=== PATIENT | male | born 1970 | race African-American/Black ===

== ENCOUNTER 2017-01-10 11:51 | Day surgery (SDC) | payer MEDICARE ==
[~2017-01-10] VITALS: Ht 188 cm; Wt 92.3 kg
--- NOTE | ~2017-01-10 | OP ---
PATIENT NAME: DARLENE VILLATORO MEDICAL RECORD: [id number] :74 [facility] DATE: SURGEON: BUNNY HUI DO DATE OF OPERATION: 01/10/2017 PROCEDURE: EGD with biopsies. INDICATIONS FOR PROCEDURE: Vomiting, heartburn, end-stage renal disease. SCOPE: ThetaRay video gastroscope. MEDICATIONS: Propofol 300 mg IV per anesthesia. ESTIMATED BLOOD LOSS: Minimal. COMPLICATIONS: None. FINDINGS: Informed consent was given. The patient was made comfortable with the above medication. After reaching an adequate level of sedation by slow IV push, the patient was placed on his left side. The endoscope was advanced under direct visualization through the mouth to the second portion of the duodenum. The upper, middle and distal thirds of the esophagus appeared normal. At the GE junction, there was some very mild evidence of [place] class A reflux induced esophagitis. The endoscope was advanced into the stomach and retroflexed to view the cardia where a diminutive sliding hiatal hernia was present. The fundus and body of the stomach appeared normal. The endoscope was advanced down to the antrum and prepyloric region which also appeared normal. Random biopsies were taken to rule out H. pylori and to submit for histology. The endoscope was advanced beyond the pylorus into the duodenum where the bulb and second portion of the duodenum appeared normal. The scope was withdrawn from the patient. The patient tolerated the procedure well and there were no complications. IMPRESSION: 1. Mild LA class A reflux induced esophagitis. 2. Diminutive sliding hiatal hernia. PLAN AND RECOMMENDATIONS: 1. Discharge home when recovery parameters are met. 2. Continue current diet. 3. Continue current medications including Pepcid 40 mg daily. 4. Reflux precautions. 5. Follow up in the GI clinic on an as-needed basis. TRANSINT:[id number] Voice Confirmation ID: [id number] DOCUMENT ID: [id number] BUNNY HUI DO CC: [id number] DICTATION DATE: 01/10/17 1502 SOIL CONSERVATIONIST: 01/11/17 [facility] 01/10/17 [facility] [address] [place] [address]
[~2017-01-10 11:51] MED LIST: BACTROBAN CREAM15 GM TOPICAL; BAYER ASPIRIN325 MG PO; BYSTOLIC5 MG PO; CELEXA40 MG PO; COZAAR50 MG PO; DIALYVITE; EFFEXOR75 MG PO; GLIMEPIRIDE1 MG PO; LASIX80 MG PO; METOLAZONE5 MG PO; METOPROLOL TART50 MG PO; NORVASC5 MG PO; PLAVIX75 MG PO; PROZAC20 MG PO; RENVELA800 MG PO; SENSIPAR30 MG PO; ZAROXOLYN5 MG PO
[2017-01-10 12:58] LABS: ANION GAP 16.9 mmol/L (8-16); CALCIUM 10.3 mg/dL (8.5-10.1); CARBON DIOXIDE 28.7 mmol/L (21.0-32.0); CREATININE - SERUM 9.4 mg/dL (0.6-1.3); POTASSIUM - SERUM 4.6 mmol/L (3.5-5.1)
[2017-01-10 13:00] LABS: HEMATOCRIT 36.6 % (42.0-54.0); HEMOGLOBIN 12.4 g/dL (13.5-17.5); MCH 33.2 pg (26.0-34.0); MCHC 33.9 g/dL (31.0-37.0); MCV 97.9 fL (80.0-100.0); MEAN PLATELET VOLUME 11.2 fL (7.4-10.4); RBC 3.74 10x6/uL (4.20-6.10); RDW 16.5 % (11.5-14.5); WBC 4.1 10x3/uL (4.8-10.8)
[2017-01-10] MEDS ORDERED: PEPCID40 MG PO (13:19)
[2017-01-10] MEDS ORDERED: FERRIC CITRATE210 MG PO (13:20)
[2017-01-10 13:28] VITALS: Ht 188 cm; Wt 92.3 kg
--- NOTE | 2017-01-10 17:01 | NUR ---
1545 IV DC WITH CATHER TIP INTACT
== END 2017-01-10 16:00 | disposition home or self-care (01) ==
LOC: D.OPS 11:51
PROVIDERS: Anesthesiology
DX: K21.0 Gastro-esophageal reflux disease with esophagitis (principal); K44.9 Diaphragmatic hernia without obstruction or gangrene; K29.50 Unspecified chronic gastritis without bleeding; N18.6 End stage renal disease

== ENCOUNTER 2017-05-07 10:30 | Outpatient (CLI) | payer MEDICARE ==
[~2017-05-07] VITALS: Ht 188 cm; Wt 96.8 kg
--- NOTE | ~2017-05-07 | HEMODYNAMI ---
PATIENT:DRALENE VILLATORO MEDICAL RECORD: [id number] : 74 LOCATION:[facility] ADMISSION DATE: 05/07/17 Generatedon:05/07/201713:26 Patient name: DARLENE VILLATORO Patient #: [id number] SSN: : 1970 Date of study: 05/07/2017 Page: Of Hemodynamic Procedure Report Patient Data Patient Demographics Procedure consent was obtained First Name: DARLENE Gender: Male Last Name: SHAUNA : 1970 Middle Initial: A Age: 46 year(s) Patient #: [id number] Race: Black Additional ID: [id number] Contact details [address]: [address] [place] [address] State: [place] City: [place] Zip code: [address] Past Medical History History of disease Date Diagnosis Comments CAD Allergies Allergen Reaction Date Comments Reported Other allergy 05/07/2017 BUMEX, LISINOPRIL Admission Admission Data Admission Date: 05/07/2017 Admission Time: 13:00 Admit Source: Other Lab Results Lab Result Date: 05/07/2017 Lab Result Time: 11:10 Biochemistry Name Units Result Min Max BUN mg/dl 45 --(----)-* 7 18 Creatinine mg/dl 8.8 --(----)-* 0.6 1.3 CBC Name Units Result Min Max Hematocrit % 33.5 *-(----)-- 42 54 Hemoglobin g/dl 11.2 *-(----)-- 13.5 17.5 Procedure Procedure Types Cath Procedure Diagnostic Procedure LHC LHC w/Coronaries Miscellaneous Procedures Moderate Sedation up to 15 minutes Procedure Description Procedure Date Procedure Date: 05/07/2017 Procedure Start Time: 13:14 Procedure End Time: 13:24 Procedure Staff Name Function Chris Escalona MD Performing Physician Brent Simmons RT Scrub Laverne Lopez RT Scrub Jose Fox RT Monitor Wale Thornton RN Nurse Radha Zambrano RT Rn Review Procedure Data Cath Procedure Fluoroscopy Diagnostic fluoroscopy Total fluoroscopy Time: 1.6 time: 1.6 min min Diagnostic fluoroscopy Total fluoroscopy dose: 511 dose: 511 mGy mGy Contrast Material Contrast Material Type Amount (ml) Isovue 300 60 Entry Location Entry Primary Successful Side Size Upsize Upsize Entry Closure Succes sful Closure Location (Fr) 1 (Fr) 2 (Fr) Remarks Device Remarks Femoral Right 5 Fr Exoseal artery Estimated blood loss: 10 ml Diagnostic catheters Device Type Used For End Catheter Placement Cordis 5Fr JL 4.0 Procedure Catheter (MP) Cordis 5Fr 3DRC Catheter Procedure (MP) Cordis 5Fr Pigtail Procedure Catheter (MP) Procedure Complications No complications Procedure Medications Medication Administration Route Dosage 0.9% NaCl I.V. 100 ml/hr Oxygen NC 2 l/min Heparin Flush Bag added to field 2 bags (1000units/500ml NS) Lidocaine 2% added to field 20 Versed I.V. 1 mg Fentanyl I.V. 50 mcg Versed I.V. 1 mg Fentanyl I.V. 50 mcg Lopressor I.V. 5 mg Hemodynamics Rest Heart Rate: 67 (bpm) Pressure Samples Time Site Value (mmHg) Purpose Heart Use Rate(bpm) 13:19 LV 135/9,13 Snapshot 67 13:20 AO 160/83(117) Pullback 77 13:20 LV 160/15,17 Pullback 77 Gradients Valve Time Site 1 Site 2 Mean SEP/DFP Peak To Heart Use (mmHg) (sec/min) Peak Rate (mmHg) (bpm) Aortic 13:20 LV AO 7 17 0 77 160/15,17 160/83(117) Calculations Valve P-P Mean Valve Index Valve Source Name Gradient Area Flow (cm2) Aortic 0 7 0 7 Snapshots Pre Cath Intra NCS Post Cath Vital Signs Time Heart Resp SPO2 etCO2 ZY1qtim NIBP (mmHg) Rhythm Pain Sedatio n Rate (ipm) (%) (mmHg) (mmHg) Status Level (bpm) 12:51:12 80 16 98 0 0 186/108(157) NSR 0 (11) 10(A) , No pain 12:55:58 77 16 99 0 0 169/89(135) NSR 0 (11) 10(A) , No pain 13:00:43 79 13 100 0 0 154/96(125) NSR 0 (11) 10(A) , No pain 13:05:26 79 13 100 0 0 164/92(127) NSR 0 (11) 10(A) , No pain 13:10:10 79 14 100 0 0 158/91(126) NSR 0 (11) 10(A) , No pain 13:14:55 79 16 100 0 0 169/92(126) NSR 0 (11) 10(A) , No pain 13:19:42 68 21 100 0 0 150/78(128) NSR 0 (11) 10(A) , No pain 13:24:23 75 6 100 0 0 162/103(130) NSR 0 (11) 10(A) , No pain Medications Time Medication Route Dose Verified Delivered Reason Notes Effe ctiveness by by 12:45:21 0.9% NaCl I.V. 100 Wale Wale Per ml/hr Hillary Thornton physician RN RN 12:45:47 Oxygen NC 2 Wale Wale Per l/min Hillary Thornton physician RN RN 12:46:57 Heparin Flush added 2 Wale Wale used for Bag to bags Lorigan Lorigan procedure (1000units/500ml field RN RN NS) 12:47:14 Lidocaine 2% added 20ml Wale Wale for local to vial Lorigan Lorigan anesthetic field RN RN 13:04:32 Versed I.V. 1 mg Wale Wale for Lorigan Lorigan sedation RN RN 13:04:44 Fentanyl I.V. 50 Wale Wale for mcg Lorigan Lorigan sedation RN RN 13:14:17 Versed I.V. 1 mg Wale Wale for Lorigan Lorigan sedation RN RN 13:14:26 Fentanyl I.V. 50 Wale Wale for mcg Lorigan Lorigan sedation RN RN 13:19:21 Lopressor I.V. 5 mg Wale Wale Per Lorigan Ana Liliaigan physician RN pattern cutter Log Time Note 12:15:49 Radha LOPEZ(R) sent for patient. Start room use. 12:38:03 Informed consent obtained and on chart 12:39:46 Admit Source: Other 12:39:47 Diagnostic Cath status Elective 12:39:51 Time tracking: Regular hours 12:39:54 Plan of Care:Hemodynamics will remain stable., Cardiac rhythm will remain stable., Comfort level will be maintained., Respiratory function will remain adequate., Patient/ family verbilizes understanding of procedure., Procedure tolerated without complication., Recovers from procedure without complications.. 12:42:40 Patient received from Pre/Post Procedure Room to CCL 1 Alert and oriented. Tansferred to table in Supine position. 12:42:41 Warm blankets applied, and jose juan hugger turned on for patient comfort. 12:42:42 Correct patient and procedure confirmed by team. 12:42:43 ECG and BP/O2 sat monitors applied to patient. 12:42:51 H&P Date Dictated: 04/30/2017 Within 30 days and on chart., H&P Addendum completed by physician on day of procedure. (MUST COMPLETE FOR ALL OUTPATIENTS). 12:42:52 Pre-procedure instructions explained to patient. 12:42:53 Pre-op teaching completed and patient verbalized understanding. 12:42:55 Family in patients room. 12:42:57 Patient NPO since Midnight. 12:43:11 Patient allergic to Other allergyBUMEX, LISINOPRIL 12:43:54 Lab Result : Creatinine 8.8 mg/dl 12:43:54 Lab Result : BUN 45 mg/dl 12:43:54 Lab Result : Hematocrit 33.5 % 12:43:54 Lab Result : Hemoglobin 11.2 g/dl 12:45:21 0.9% NaCl 100 ml/hr I.V. was administered by Wale Thornton RN; Per physician; 12:45:47 Oxygen 2 l/min NC was administered by Wale Thornton RN; Per physician; 12:46:57 Heparin Flush Bag (1000units/500ml NS) 2 bags added to field was administered by Wale Thornton RN; used for procedure; 12:47:14 Lidocaine 2% 20ml vial added to field was administered by Wale Thornton RN; for local anesthetic; 12:47:49 Is the patient allergic to Iodine/contrast media? No. 12:47:52 Was the patient premedicated? No 12:47:54 Is patient on blood thinner?Yes 12:47:56 ACC The patient was administered the following blood thiners within the last 24 hours: ACCPlavix 12:47:59 Patient diabetic? Yes. 12:48:00 If diabetic: On Metformin? No 12:48:06 Snore? Yes 12:48:07 Sleep apnea? Yes 12:48:13 Dentures? No ? 12:48:23 Patient pain scale 0/10 ?. 12:48:30 IV patent on arrival in right forearm with 0.9% NaCl at [facility]. 12:48:41 Lab results completed and on chart. 12:48:50 Right groin area was prepped with chlora-prep and draped in sterile fashion 12:48:52 Alarms reviewed by R. N. 12:48:52 Sharps counted by scrub and verified by R.N. 12:48:53 Physician paged 12:50:13 Vital chart was started 12:58:46 Zero performed for pressure channel P1 13:03:40 Physician arrived 13:03:41 --------ALL STOP TIME OUT------ 13:03:45 Final Timeout: patient, procedure, and site verified with staff and physician. All members of the team are in agreement. 13:03:48 Right groin site verified by team. 13:03:55 Sedation plan: IV Moderate Sedation Versed, Fentanyl 13:04:32 Versed 1 mg I.V. was administered by Wale Thornton RN; for sedation; 13:04:44 Fentanyl 50 mcg I.V. was administered by Wale Thornton RN; for sedation; 13:07:51 Use device set Femoral Dx 13:07:53 Acist Syringe opened to sterile field. 13:07:53 Bag Decanter opened to sterile field. 13:07:54 Medline Cath Pack opened to sterile field. 13:07:54 Terumo 5Fr Bajadero Sheath opened to sterile field. 13:07:55 St Andreas 260cm J .035 wire opened to sterile field. 13:07:57 Acist Hand Control opened to sterile field. 13:07:57 Acist Manifold opened to sterile field. 13:07:58 Diagnostic Infinity 5Fr Multipack catheter opened to sterile field. 13:07:58 Tegaderm 4 x 4 opened to sterile field. 13:14:17 Versed 1 mg I.V. was administered by Wale Thornton RN; for sedation; 13:14:21 Procedure started. 13:14:22 Full Disclosure recording started 13:14:26 Fentanyl 50 mcg I.V. was administered by Wale Thornton RN; for sedation; 13:14:35 Local anesthetic to right femoral artery with Lidocaine 2% by Chris Escalona MD.INITIAL ACCESS ONLY 13:14:58 A 5 Fr sheath was inserted into the Right Femoral artery 13:16:07 Catheter removed. 13:16:27 A Cordis 5Fr JL 4.0 Catheter (MP) was advanced over the wire and used for Procedure. 13:16:50 LCA angiography performed. 13:17:05 Catheter removed. 13:17:14 A Cordis 5Fr 3DRC Catheter (MP) was advanced over the wire and used for Procedure. 13:19:16 RCA angiography performed. 13:19:18 Catheter removed. 13:19:21 Lopressor 5 mg I.V. was administered by Wale Thornton RN; Per physician; 13:19:26 A Cordis 5Fr Pigtail Catheter (MP) was advanced over the wire and used for Procedure. 13:20:02 EF : 35 % 13:20:04 Catheter removed. 13:20:54 Cordis 5Fr Exoseal opened to sterile field. 13:21:03 Sheath removed intact; hemostasis achieved with Exoseal to the Right Femoral artery. 13:21:34 Procedure ended.(Physican Out) 13:21:55 Fluoroscopy time 01.60 minutes. 13:22:00 Flurop Dose total: 511 13:22:00 Fluoroscopy dose: 511 mGy 13:22:05 Contrast amount:Isovue 300 60ml. 13:22:07 Sharps counted by scrub and verified by R.N. 13:22:09 Insertion/operative site no bleeding no hematoma. 13:22:12 Post Procedure Pulses reassessed and unchanged 13:22:17 Post procedure rhythm: unchanged. 13:22:21 Estimated blood loss: 10 ml 13:22:25 Post procedure instruction explained to patient.Patient verbalizes understanding. 13:22:36 Patient needs reinforcement of post procedure teaching. 13:22:48 Procedure and supply charges have been captured, reviewed, submitted and are correct. 13:22:57 Procedure type changed to Cath procedure, Diagnostic procedure, LHC, LHC w/Coronaries, Miscellaneous Procedures, Moderate Sedation up to 15 minutes 13:24:23 Procedure Complication : No complications 13:24:27 Vital chart was stopped 13:24:28 See physician's report for complete and final results. 13:24:30 Report given to Med II. 13:24:37 Patient transfered to Pre/Post Procedure Room with Stretcher. 13:24:39 Procedure ended. 13:24:39 Full Disclosure recording stopped 13:24:42 End room use (Document Last) Device Usage Item Name Manufacture Quantity Catalog Hospital Part Current Minimal Lo t# / Number Charge Number Stock Stock Serial# Code Acist Acist 1 [id number] 163083 957864 042825 20 Syringe [employer] Bag Microtek 1 2002S 053489 48941 058249 5 Decanter [employer] Medline Cardinal 1 [id number] 475318 75512 015105 5 Cath Pack Health Terumo 5Fr Terumo 1 [id number] 475578 854946 576526 [address] Andreas 1 148519 710751 433205 101412 30 260cm J .035 wire Acist Hand Acist 1 43096 512528 120471 882563 5 Control [employer] Inc Acist Acist 1 66027 754383 377425 105817 5 Manifold [employer] Inc Diagnostic Cardinal 1 [id number] 457748 05171 804587 30 Infinity Health 5Fr Multipack catheter Tegaderm 4 3M 1 1626W 323335 919889 932951 5 x 4 Cordis 5Fr Cardinal 1 096672 5 JL 4.0 Health Catheter (MP) Cordis 5Fr Cardinal 1 733909 5 3DRC Health Catheter (MP) Cordis 5Fr Cardinal 1 893249 5 Pigtail Health Catheter (MP) Cordis 5Fr Cardinal 1 EX500 873683 781374 397880 10 [facility] Health Signature Audit Unity Stage Time Signature Unsigned Intra-Procedure 05/07/2017 Radha Zambrano 1:26:22 PM RT(R) Signatures Monitor : Jose Fox RT Signature : Date : Time : [facility] [address] [place] [address]
--- NOTE | ~2017-05-07 | OP ---
PATIENT NAME: DARLENE VILLATORO MEDICAL RECORD: [id number] :74 LOCATION:[facility] ADMISSION DATE: SURGEON: JAYDEN CUELLAR MD DATE OF OPERATION: 05/07/2017 PROCEDURE: Left heart catheterization, selective coronary angiography, right femoral artery approach. CATHETERS: A 5-Kazakh sheath, 5/4 left and right Chirag, 5/4 pig. The procedure was well tolerated and the patient returned to gore. Sheath removed. ExoSeal device placed. FINDINGS: Left ventriculography, 30-degree BRIDGES view shows global hypokinesis. Overall, LV function reduced, estimated EF 40%. CORONARY ANATOMY: LEFT MAIN: Left main is free of disease. LAD: LAD in the area of previous stenting is widely patent with no evidence of progression of [place] disease. CIRCUMFLEX: Circumflex is free of disease. RIGHT CORONARY ARTERY: Somewhat codominant system, free of disease. IMPRESSION: Mildly decreased LV function. I suspect hypertensive cardiomyopathy, patent stent. TRANSINT:[id number] Voice Confirmation ID: [id number] DOCUMENT ID: [id number] JAYDEN CUELLAR MD CC: [id number] DICTATION DATE: 05/07/17 1329 FISH BAIT PROCESSING SUPERVISOR: 05/07/17 1432 PRE [facility] [address] [place] [id number]
[~2017-05-07 10:30] MED LIST changes: +FERRIC CITRATE210 MG PO; +PEPCID40 MG PO
[2017-05-07] MEDS ORDERED: GABAPENTIN100 MG PO (10:58)
[2017-05-07 11:03] VITALS: BP 174/67; Ht 188 cm; Wt 96.8 kg
[2017-05-07 11:19] LABS: BASOPHILS 0 % (0-2); EOSINOPHILS 2.2 % (0-7); HEMATOCRIT 33.5 % (42.0-54.0); HEMOGLOBIN 11.2 g/dL (13.5-17.5); IMMATURE GRANULOCYTES 0.2 % (0-5); LYMPHOCYTES 25.1 % (15-50); MCH 32.8 pg (26.0-34.0); MCHC 33.4 g/dL (31.0-37.0); MCV 98.2 fL (80.0-100.0); MEAN PLATELET VOLUME 9.2 fL (7.4-10.4); MONOCYTES 5.6 % (2-11); NEUTROPHILS 66.9 % (40-80); RBC 3.41 10x6/uL (4.20-6.10); RDW 15.5 % (11.5-14.5); WBC 4.5 10x3/uL (4.8-10.8)
[2017-05-07 11:27] LABS: PLATELET COUNT 223 10x3/uL (130-400)
[2017-05-07 11:36] LABS: CREATININE - SERUM 8.8 mg/dL (0.6-1.3)
[2017-05-07 11:37] LABS: ANION GAP 15.9 mmol/L (8-16); CALCIUM 9.1 mg/dL (8.5-10.1); CARBON DIOXIDE 30.6 mmol/L (21.0-32.0); POTASSIUM - SERUM 4.5 mmol/L (3.5-5.1)
--- NOTE | 2017-05-07 13:39 | NUR ---
RECIEVED TO ROOM VIA STRETCHER FROM FOLDER MACHINE ADJUSTER WITH REPORTS OF A CLEAN CATH NO INTERVENTION AT THIS TIME. 5 FR EXOSEAL R/GROIN CDI NO BLEEDING NO HEMATOMA NOTED. INSTRUCTED PATIENT TO KEEP HEAD FLAT ON PILLOW WITH RLE STRAIGHT
--- NOTE | 2017-05-07 13:42 | NUR ---
R/GROIN CDI NO BLEEDING NO HEMATOMA NOTED. IV FLUIDS CLAMPED ORDERED. VSS WITH CHEST PAIN DENIED
--- NOTE | 2017-05-07 13:55 | NUR ---
5 FR EXOSEAL R/GROIN CDI NO BLEEDING NO HEMATOMA NOTED. VSS WITH CHEST PAIN DENIED FAMILY AT SIDE. INSTRUCTED PATIENT TO KEEP HEAD FLAT ON PILLOW WITH RLE STRAIGHT
--- NOTE | 2017-05-07 14:25 | NUR ---
SANDWICH AND SODA TO BEDSIDE WITH VSS. 5 FR EXOSEAL R/GROIN CDI NO BLEEDING NO HEMATOMA NOTED.
--- NOTE | 2017-05-07 14:56 | NUR ---
SITTING WITH HOB UP 30 DEGREES CHEST PAIN DENIED. 5 FR EXOSEAL R/GROIN CDI NO BLEEDING NO HEMATOMA NOTED.
--- NOTE | 2017-05-07 15:13 | NUR ---
PIV REMOVED WITH DRESSING APPLIED. CHEST PAIN IS DENIED. 5 FR EXOSEAL R/GROIN CDI NO BLEEDING NO HEMATOMA NOTED. PATIENT UP TO GET DRESSED FOR DISCHARGE HOME
--- NOTE | 2017-05-07 15:26 | NUR ---
VERBAL AND WRITTEN DISCHARGE GONE OVER WITH PATIENT. VERBALIZED UNDERSTANDING. 5 FR EXOSEAL R/GROIN CDI NO BLEEDING NO HEMATOMA NOTED. LEFT VIA WC TO PARKING FOR FAMILY TO TRANSPORT HOME
== END 2017-05-07 17:00 ==
LOC: D.CATH 10:30
PROVIDERS: Internal Medicine Interventional Cardiology
DX: I25.10 Atherosclerotic heart disease of native coronary artery without angina pectoris (principal); I42.9 Cardiomyopathy, unspecified; I10 Essential (primary) hypertension; I34.0 Nonrheumatic mitral (valve) insufficiency; Z01.812 Encounter for preprocedural laboratory examination

== ENCOUNTER 2017-09-03 12:14 | Emergency (ER) | payer MEDICARE ==
[2017-05-07 11:03] VITALS: BMI 27.4
[~2017-09-03 12:14] MED LIST changes: +GABAPENTIN100 MG PO
== END 2017-09-03 13:05 | disposition home or self-care (01) ==
LOC: D.ER 12:14
DX: L03.211 Cellulitis of face (principal); E11.9 Type 2 diabetes mellitus without complications; I12.0 Hypertensive chronic kidney disease with stage 5 chronic kidney disease or end stage renal disease; N18.6 End stage renal disease

== ENCOUNTER 2018-08-05 18:17 | Observation (INO) | payer MEDICARE ==
[~2018-08-05] VITALS: Ht 188 cm; Wt 96.8 kg
--- NOTE | ~2018-08-05 | HEMODYNAMI ---
PATIENT:DARLENE VILLATORO MEDICAL RECORD: [id number] : 74 LOCATION:[facility] D.2131 ADMISSION DATE: 08/05/18 Generatedon:08/06/20189:24 Patient name: DARLENE VILLATORO Patient #: [id number] SSN: : 1970 Date of study: 08/06/2018 Page: Of Hemodynamic Procedure Report Patient Data Patient Demographics Procedure consent was obtained First Name: DARLENE Gender: Male Last Name: SHAUNA : 1970 [facility] Initial: A Age: 48 year(s) Patient #: [id number] Race: Black Additional ID: [id number] Contact details [address]: [address] [place] [address] State: [place] City: [place] Zip code: [address] Past Medical History History of disease Date Diagnosis Comments CAD Allergies Allergen Reaction Date Comments Reported Other allergy 05/07/2017 BUMEX, LISINOPRIL Admission Admission Data Admission Date: 08/05/2018 Admission Time: 21:13 Room #: D.2131 Weight (lbs.): 213.85 Weight (kg.): 97 Lab Results Lab Result Date: 08/06/2018 Lab Result Time: 0:00 Biochemistry Name Units Result Min Max BUN mg/dl 38 --(----)-* 7 18 Creatinine mg/dl 10 --(----)-* 0.6 1.3 CBC Name Units Result Min Max Hematocrit % 27.3 *-(----)-- 42 54 Hemoglobin g/dl 8.6 *-(----)-- 13.5 17.5 Platelets 10^3/l 241 --(-*--)-- 130 400 Procedure Procedure Types Cath Procedure Diagnostic Procedure [facility] w/Coronaries FFR/IVUS Intra-Coronary IVUS Initial Sedation Charges Moderate Sedation up to 15 minutes PCI Procedure Coronary Stent Coronary Stent Initial Procedure Description Procedure Date Procedure Date: 08/06/2018 Procedure Start Time: 9:04 Procedure End Time: 9:19 Procedure Staff Name Function Dean Cortez MD Performing Physician Brent Simmons RT Encapsulator Demetra Villegas RT Monitor Fauzia River RN Nurse Radha Zambrano RT Scrub Procedure Data Cath Procedure Fluoroscopy Diagnostic fluoroscopy Total fluoroscopy Time: 3.3 time: 3.3 min min Diagnostic fluoroscopy Total fluoroscopy dose: 935 dose: 935 mGy mGy Contrast Material Contrast Material Type Amount (ml) Isovue 300 98 Entry Location Entry Primary Successful Side Size Upsize Upsize Entry Closure Succes sful Closure Location (Fr) 1 (Fr) 2 (Fr) Remarks Device Remarks Femoral Right 5 Fr 6 Fr Exoseal artery Short Estimated blood loss: 5 ml Diagnostic catheters Device Type Used For End Catheter Placement MULTIPACK Pigtail 5 Fr LV Angiography catheter MULTIPACK JL 4.0 5Fr Left Coronary catheter Angiography MULTIPACK 3DRC 5Fr Right Coronary catheter Angiography Procedure Complications No complications Procedure Medications Medication Administration Route Dosage Oxygen etCO2 Nasal cannula 2 l/min Lidocaine 2% added to field 20 Heparin Flush Bag added to field 2 bags (1000units/500ml NS) 0.9% NaCl I.V. 20 ml/hr Versed I.V. 1 mg Fentanyl I.V. 50 mcg Versed I.V. 1 mg Fentanyl I.V. 50 mcg Fentanyl I.V. 50 mcg Heparin Bolus I.V. 4000 units Plavix P.O. 75 mg Hemodynamics Rest Heart Rate: 76 (bpm) Pressure Samples Time Site Value (mmHg) Purpose Heart Use Rate(bpm) 9:05 LV 140/8,77 Snapshot 86 Snapshots Pre Cath Intra NCS Post Cath Vital Signs Time Heart Resp SPO2 etCO2 NIBP (mmHg) Rhythm Pain Sedation Rate (ipm) (%) (mmHg) Status Level (bpm) 8:48:17 75 12 98 29.9 189/103(160) NSR 0 (11) 10(A) , No pain 8:56:57 74 12 94 30.7 164/94(130) NSR 0 (11) 10(A) , No pain 9:01:18 74 10 95 20.2 159/85(126) NSR 0 (11) 10(A) , No pain 9:05:32 75 15 95 31.4 158/97(132) NSR 0 (11) 10(A) , No pain 9:09:48 75 4 95 32.9 160/93(129) NSR 0 (11) 9(A) , No pain 9:14:04 74 14 96 32.1 165/94(136) NSR 0 (11) 9(A) , No pain 9:18:20 75 12 98 32.1 163/95(132) NSR 0 (11) 10(A) , No pain Medications Time Medication Route Dose Verified Delivered Reason Notes Effectiveness by by 8:49:53 Oxygen etCO2 2 Dean Caeg used for Nasal l/min Diego River RN procedure cannula 8:50:03 Lidocaine 2% added 20ml Dean Dean for local to vial Diego Cortez MD anesthetic field 8:50:08 Heparin Flush added 2 Dean Dean used for Bag to bags Diego Cortez MD procedure (1000units/500ml field NS) 8:50:17 0.9% NaCl I.V. 20 Dean Buffie Per physician ml/hr Diego River RN 8:59:11 Versed I.V. 1 mg Dean Guerinie for sedation Diego River RN 8:59:17 Fentanyl I.V. 50 Dean Buffie for sedation mcg Diego River RN 9:04:40 Versed I.V. 1 mg Dean Buffie for sedation Diego River RN 9:04:43 Fentanyl I.V. 50 Dean Buffie for sedation mcg Diego River RN 9:11:01 Fentanyl I.V. 50 Dean Buffie for sedation mcg Diego River RN 9:14:07 Heparin Bolus I.V. 4000 Dean Guerinie for verifi ed units Diego River RN anticoagulation with dr cortez 9:21:30 Plavix P.O. 75 mg Dean Buffie for Diego River RN antiplatelet therapy Procedure Log Time Note 8:10:48 Patient Weight : 213.85 lbs 8:10:51 Brent LOPEZ(R) sent for patient. Start room use. 8:11:30 Lab Result : Hemoglobin 8.6 g/dl 8:11:30 Lab Result : Creatinine 10 mg/dl 8:11:30 Lab Result : BUN 38 mg/dl 8:11:30 Lab Result : Hematocrit 27.3 % 8:11:30 Lab Result : Platelets 241 10^3/l 8:16:52 Time tracking: Regular hours (M-F 7:00 - 5:00) 8:16:56 Plan of Care:Hemodynamics will remain stable., Cardiac rhythm will remain stable., Comfort level will be maintained., Respiratory function will remain adequate., Patient/ family verbilizes understanding of procedure., Procedure tolerated without complication., Recovers from procedure without complications.. 8:36:25 Patient received from Med II to CCL 2 Alert and oriented. Tansferred to table in Supine position. 8:36:26 Warm blankets applied, and jose juan hugger turned on for patient comfort. 8:36:26 Correct patient and procedure confirmed by team. 8:36:28 Signed procedure consent form obtained from patient. 8:36:29 ECG and BP/O2 sat monitors applied to patient. 8:38:39 H&P Date Dictated: 08/05/2018 Within 30 days and on chart., H&P Addendum completed by physician on day of procedure. (MUST COMPLETE FOR ALL OUTPATIENTS). 8:38:40 Pre-procedure instructions explained to patient. 8:38:41 Pre-op teaching completed and patient verbalized understanding. 8:38:45 Family in patients room. 8:38:47 Patient NPO since Midnight. 8:38:48 Is the patient allergic to Iodine/contrast media? No. 8:38:50 Is patient on blood thinner?Yes 8:38:52 ACC The patient was administered the following blood thiners within the last 24 hours: ACCPlavix 8:38:55 Patient diabetic? Yes. 8:38:56 If diabetic: On Metformin? No 8:38:59 Previous problem with sedation/anesthesia? No ? 8:38:59 Snore? Yes 8:39:00 Sleep apnea? Yes 8:39:01 Deviated septum? No 8:39:02 Opens mouth fully? Yes 8:39:03 Sticks out tongue? Yes 8:39:05 Airway obstruction? No ? 8:39:08 Dentures? No ? 8:39:12 Pre procedure: right dorsailis pedis pulse 1+ Palpable, but thready & weak; easily obliterated 8:39:55 PT HAS A RESERVE LEFT ARM. 8:40:03 Patient pain scale 0/10 ?. 8:40:08 IV patent on arrival in right forearm with 0.9% NaCl at KVO. 8:40:21 Lab results completed and on chart. 8:40:24 Right groin area was prepped with chlora-prep and draped in sterile fashion 8:40:25 Alarms reviewed by R. N. 8:40:26 Sharps counted by scrub and verified by R.N. 8:40:31 Use device set Femoral Dx 8:40:33 Tegaderm 4 x 4 (1626W) opened to sterile field. 8:40:35 ACIST Hand Control (42250) opened to sterile field. 8:40:36 ACIST Manifold (71758) opened to sterile field. 8:40:37 ACIST Syringe (25091) opened to sterile field. 8:40:37 Bag Decanter (2002S) opened to sterile field. 8:40:38 Medline Cath Pack ([id number]) opened to sterile field. 8:40:38 DIAGNOSTIC WIRE .035 260cm J wire (819398) opened to sterile field. 8:40:40 DIAGNOSTIC Multipack 5Fr catheter set (WA8883) opened to sterile field. 8:40:41 SHEATH 5FR [place] (GED047) opened to sterile field. 8:47:28 Zero performed for pressure channel P1 8:49:53 Oxygen 2 l/min etCO2 Nasal cannula was administered by Fauzia River RN; used for procedure; 8:50:03 Lidocaine 2% 20ml vial added to field was administered by Dean Cortez MD; for local anesthetic; 8:50:08 Heparin Flush Bag (1000units/500ml NS) 2 bags added to field was administered by Dean Cortez MD; used for procedure; 8:50:17 0.9% NaCl 20 ml/hr I.V. was administered by Fauzia River RN; Per physician; 8:53:02 Baseline sample Acquired. 8:55:44 Vital chart was started 8:55:54 Rhythm: sinus rhythm 8:55:56 Full Disclosure recording started 8:58:19 Physician arrived 8:58:19 --------ALL STOP TIME OUT------ 8:58:20 Final Timeout: patient, procedure, and site verified with staff and physician. All members of the team are in agreement. 8:58:24 Right groin site verified by team. 8:58:27 Physical assessment completed. ASA score P 2 - A patient with mild systemic disease as per Dean Cortez MD. 8:58:30 Sedation plan: IV Moderate Sedation Medication:Versed, Fentanyl 8:59:11 Versed 1 mg I.V. was administered by Fauzia River RN; for sedation; 8:59:17 Fentanyl 50 mcg I.V. was administered by Fauzia River RN; for sedation; 9:04:01 Procedure started. 9:04:08 Local anesthetic to right femoral artery with Lidocaine 2% by Dean Cortez MD.INITIAL ACCESS ONLY 9:04:23 A 5 Fr sheath was inserted into the Right Femoral artery 9:04:40 Versed 1 mg I.V. was administered by Fauzia River RN; for sedation; 9:04:41 A MULTIPACK Pigtail 5 Fr catheter was advanced over the wire and used for LV Angiography. 9:04:43 Fentanyl 50 mcg I.V. was administered by Fauzia River RN; for sedation; 9:05:55 LV hemodynamics recorded. 9:05:56 LV gram done using BRIDGES 9:05:59 Injector settings: Ml/sec: 5, Volume: 15, 9:06:05 EF : 50 % 9:06:08 Catheter removed. 9:06:18 A MULTIPACK JL 4.0 5Fr catheter was advanced over the wire and used for Left Coronary Angiography. 9:06:55 LCA angiography performed. 9:06:58 Injector settings: Ml/sec: 3, Volume: 6, 9:08:33 Catheter removed. 9:08:38 A MULTIPACK 3DRC 5Fr catheter was advanced over the wire and used for Right Coronary Angiography. 9:08:47 RCA angiography performed. 9:08:50 Injector settings: Ml/sec: 3, Volume: 6, 9:09:00 Catheter removed. 9:09:01 Proceeding to intervention. 9:09:27 SHEATH 6FR [place] (HEG408) opened to sterile field. 9:09:27 INFLATOR Merit BasixCompak (FX6720) opened to sterile field. 9:09:28 CHOICE PT Extra Support 182cm wire ([id number]) opened to sterile field. 9:09:28 GUIDE 6FR XBLAD 3.5 catheter ([id number]) opened to sterile field. 9:09:29 Mobile [place] IVUS Catheter (62261X) opened to sterile field. 9:09:42 Sheath upsized to a 6 Fr Short. 9:09:59 6 Fr XBLAD 3.5 guide catheter was inserted over the wire 9:10:22 CHOICE PT wire advanced. 9:10:24 Wire advanced across lesion. 9:10:50 IVUS catheter advanced over wire. 9:11:01 Fentanyl 50 mcg I.V. was administered by Fauzia River RN; for sedation; 9:14:07 Heparin Bolus 4000 units I.V. was administered by Fauzia River RN; for anticoagulation; verified with dr cortez 9:16:05 IVUS pass to LAD lesion performed. 9:16:06 IVUS catheter removed over wire. 9:16:43 Place stent Inflation Number: 1 A INTEGRITY RX 3.0 x 12 stent ([id number]) was prepped and advanced across the Prox LAD. The stent was deployed at 17 JASMINA for 0:10 (min:sec). 9:16:57 Inflation number: 2 The stent balloon was then re-inflated across the Prox LAD to 17 JASMINA for 0:10 (min:sec). 9:17:58 Stent catheter was removed intact over wire. 9:17:58 Wire removed. 9:17:59 Guide catheter removed. 9:18:05 EXOSEAL 6Fr (EX600) opened to sterile field. 9:18:16 Sheath removed intact; hemostasis achieved with Exoseal to the Right Femoral artery. 9:18:18 Procedure ended.(Physican Out) 9:18:22 Fluoroscopy time 03.30 minutes. 9:18:26 Flurop Dose total: 935 9:18:26 Fluoroscopy dose: 935 mGy 9:18:30 Contrast amount:Isovue 300 98ml. 9:18:31 Sharps counted by scrub and verified by R.N. 9:18:35 Post-op/insertion site Right Femoral artery dressed using a 4 x 4 and Tegaderm. 9:18:38 Post right femoral artery:stable 9:18:39 Post Procedure Pulses reassessed and unchanged 9:18:41 Post procedure rhythm: unchanged. 9:18:44 Estimated blood loss: 5 ml 9:18:45 Post procedure instruction explained to patient.Patient verbalizes understanding. 9:18:45 Patient needs reinforcement of post procedure teaching. 9:19:01 Procedure type changed to Cath procedure, Diagnostic procedure, C, [facility] w/Coronaries, FFR/IVUS, Intra-Coronary IVUS Initial, Sedation Charges, Moderate Sedation up to 15 minutes, PCI procedure, Coronary Stent, Coronary Stent Initial 9:19:02 Procedure and supply charges have been captured, reviewed, submitted and are correct. 9:19:08 Procedure Complication : No complications 9:19:11 Vital chart was stopped 9:19:12 See physician's report for complete and final results. 9:19:20 Report given to [facility]. 9:19:23 Patient transfered to [facility] with Stretcher. 9:19:31 Procedure ended. 9:19:31 Full Disclosure recording stopped 9:19:52 ACC-PCI Only Patient was given prescriptions, or instructed by Dean Cortez MD to start/continue the following medications upon discharge: Plavix 9:19:53 End room use (Document Last) 9:21:30 Plavix 75 mg P.O. was administered by Fauzia River RN; for antiplatelet therapy; Intervention Summary Intervention Notes Time ActionType Lesion and Equipment Action# Pressure Duration Attributes Used 9:16:43 Place stent Prox LAD INTEGRITY RX 1 17 00:10 3.0 x 12 stent ([id number]) 9:16:57 Reinflate Prox LAD INTEGRITY RX 2 17 00:10 stent 3.0 x 12 balloon stent ([id number]) Device Usage Item Name Manufacture Quantity Catalog Number Hospital Part Current Mini [facility] Lot# / Charge Number Stock Stock Serial# Code Tegaderm 4 x 3M 1 1626W 188549 [id number] 658950 5 4 (1626W) ACIST Hand Acist 1 20992 149027 616097 791090 5 Control Medical (05463) Systems Inc ACIST Acist 1 22090 002439 965350 709301 5 Manifold Medical (43646) Systems Inc ACIST Acist 1 90937 198705 706579 129577 20 Syringe Medical (64800) Systems Inc Bag Decanter Microtek 1 075414 09741 190493 5 () Medical Inc. Medline Cath Medline 1 [id number] 913745 81104 751217 5 Pack ([id number]) DIAGNOSTIC [facility] [place] 1 228199 293879 722052 346024 30 WIRE .035 260cm J wire (365875) DIAGNOSTIC Cardinal 1 SR3139 069262 79427 816235 30 Multipack Health 5Fr catheter set (PL6999) SHEATH 5FR Terumo 1 UEQ537 674572 394273 622917 5 [place] (CJV867) MULTIPACK Cardinal 1 015993 5 Pigtail 5 Fr Health catheter MULTIPACK JL Cardinal 1 215191 5 4.0 5Fr Health catheter MULTIPACK Cardinal 1 370120 5 3DRC 5Fr Health catheter SHEATH 6FR Terumo 1 BAL034 833472 490186 170349 40 [place] (TGX317) INFLATOR Merit 1 QB3592 052714 689780 547577 15 [facility] Medical BasixCompak (IW4918) CHOICE PT [place] 1 [id number] 894060 844149 291645 5 Extra Scientific Support 182cm wire (7047130H0) GUIDE 6FR Cardinal 1 19136594 772666 703194 989421 10 XBLAD 3.5 Health catheter (85090245) Mobile Mobile 1 43403M 412661 785579 826287 8 [place] IVUS Catheter (42697W) INTEGRITY RX Medtronic 1 [id number] 930403 296628 535621 5 [id number] 3.0 x 12 stent ([id number]) EXOSEAL 6Fr Cardinal 1 EX600 768306 786357 576245 10 (EX600) Health Signature Audit [place] Stage Time Signature Unsigned Intra-Procedure 08/06/2018 Demetra Villegas 9:24:09 AM RT(R) Signatures Monitor : Demetra Villegas RT Signature : Date : Time : [facility] [address] [place] [address]
--- NOTE | ~2018-08-05 | OP ---
PATIENT NAME: DARLENE VILLATORO MEDICAL RECORD: [id number] :74 LOCATION:D.M2 D.2131 ADMISSION DATE:08/05/18 SURGEON: ANGELICA PALOMO MD DATE OF OPERATION: 08/06/2018 DATE OF SERVICE: 08/06/2018 PROCEDURES: 1. PTCA stent LAD. 2. Intravascular ultrasound. 3. Left heart catheterization. 4. Selective coronary angiography. 5. Left ventriculogram. INDICATION: Non-Q-wave myocardial infarction, angina and coronary artery disease. DESCRIPTION OF PROCEDURE IN DETAIL: After informed consent was obtained and after detailed description of risks, benefits as well as alternative therapies, the patient elected to proceed with angiogram and angioplasty. The right femoral area was prepped and draped in normal sterile fashion. Right femoral artery was cannulated via modified Seldinger technique with placement of a 6-Setswana sheath. All catheters exchanged through this sheath. FINDINGS: Left ventriculogram was performed in standard 30-degree BRIDGES view, reveals good cardiac wall motion throughout all segments. Overall ejection fraction estimated at 50%. SELECTIVE CORONARY ANGIOGRAPHY: 1. Left main is with no significant angiographic disease. 2. Left anterior descending has previously placed stent proximally, it is widely patent; however, there is approximately 70% stenosis in the mid vessel confirmed by intravascular ultrasound. 3. Left circumflex has moderate irregularities, but no flow-limiting stenosis. 4. Right coronary has moderate irregularities, but no flow-limiting stenosis. PTCA STENT OF THE LAD: The stent used was a 3.0 x 12 mm Integrity. Result was 0% residual stenosis. OVERALL IMPRESSION: Successful percutaneous transluminal coronary angioplasty stent of the left anterior descending going from 70% initial stenosis to 0% residual. TRANSINT:[id number] Voice Confirmation ID: [id number] DOCUMENT ID: [id number] ANGELICA PALOMO MD CC: [id number] DICTATION DATE: 08/06/18921 PULL UP HAND: 08/06/18 1141 [place] [address]
--- NOTE | ~2018-08-05 | CN ---
PATIENT NAME:DARLENE VILLATORO MEDICAL RECORD: [id number] : 74 LOCATION:D. D.2131 ADMIT DATE: 08/05/18 ACCOUNT: [id number] CONSULTING PHYSICIAN: ANGELICA PALOMO MD REFERRING PHYSICIAN: JONELLE HART MD DATE OF CONSULTATION: 08/06/2018 DIAGNOSES: 1. Non-Q-wave myocardial infarction. 2. Angina. 3. Hypertension. 4. End-stage renal failure, on dialysis. HISTORY OF PRESENT ILLNESS: This is a gentleman with a past history of coronary artery disease, previous PTCA stent in 2014, who presents with chest pain, rules in for a non-Q-wave myocardial infarction. He has continued to have episodes of chest pain. PHYSICAL EXAMINATION: GENERAL APPEARANCE: Well-nourished, well-developed, appears stated age. Level of distress, comfortable. PSYCHIATRIC: Mental status, alert, normal affect. Orientation, oriented to time, place and person. EYES: Lids and conjunctiva, noninjected. No discharge, no pallor. ENT: Lips, teeth, gums, normal dentition. Oropharynx, no cyanosis, no pallor. NECK: Carotid arteries, bilateral normal upstroke, no bruits, no thrills. JUGULAR VEINS: No jugular venous pressure or distention. CERVICAL LYMPH NODES: Nontender, nonenlarged. THYROID: Not enlarged. Nontender. No nodules. LUNGS: Respiratory effort, unlabored. CHEST: Normal curvature. No thoracic deformity. No chest wall tenderness. Percussion, resonant. Auscultation, clear. No wheezes, no rales, no rhonchi. CARDIOVASCULAR: Precordial exam, nondisplaced. No heaves or pericardial thrills. Rate and rhythm, regular. Heart sounds, normal S1, normal S2. No S3, no gallop, no rub. Systolic murmur, not heard. Diastolic murmur, not heard. EXTREMITIES: No cyanosis, no edema. Peripheral pulses, full and equal in all extremities, except as noted. No bruits appreciated. ABDOMEN: Soft, nondistended. Normal aorta. No bruit. Nontender. No masses. Liver, nontender, no hepatomegaly. Spleen, nontender, no splenomegaly. MUSCULOSKELETAL: No joint tenderness. No joint swelling. No erythema. NEUROLOGICAL: Normal gait, normal strength, normal tone. SKIN: Warm and dry. OVERALL IMPRESSION: Anginal symptomatology, non-Q-wave myocardial infarction. We will proceed with coronary angiography. Further care depends upon the findings of the angiography. TRANSINT:[id number] Voice Confirmation ID: [id number] DOCUMENT ID: [id number] CONSULT REPORT [id number] DARLENE VILLATORO JEFFREY MD CC: [id number] DICTATION DATE: 08/06/18 0759 ENVIRONMENTAL ENGINEER: 08/06/18 1130 ADM IN [facility] [address] [id number]
[2018-08-05] MEDS ORDERED: [UNRECOGNIZED DRUG - OTHER] PO (18:26)
[2018-08-05] MEDS ORDERED: HYDRALAZINE HCL50 MG PO (18:27)
[2018-08-05] MEDS ORDERED: GABAPENTIN100 MG PO (18:27)
[2018-08-05 18:45] VITALS: BP 190/91
[2018-08-05 19:14] LABS: BASOPHILS 0.3 % (0-2); EOSINOPHILS 2.1 % (0-7); HEMATOCRIT 27.3 % (42.0-54.0); HEMOGLOBIN 8.6 g/dL (13.5-17.5); LYMPHOCYTES 28.6 % (15-50); MCH 33.2 pg (26.0-34.0); MCHC 31.5 g/dL (31.0-37.0); MCV 105.4 fL (80.0-100.0); MEAN PLATELET VOLUME 9.9 fL (7.4-10.4); PLATELET COUNT 241 10x3/uL (130-400); RBC 2.59 10x6/uL (4.20-6.10); RDW 16.5 % (11.5-14.5); WBC 3.8 10x3/uL (4.8-10.8)
[2018-08-05 19:20] LABS: APTT 31.1 SECONDS (22.8-39.4); INR 1.04 (0.85-1.17); PROTIME 13.1 SECONDS (11.6-15.0)
[2018-08-05 19:31] LABS: ALBUMIN 3.8 g/dL (3.4-5.0); ALKALINE PHOSPHATASE 78 U/L (46-116); ALT (SGPT) 20 U/L (10-68); BILIRUBIN - TOTAL 0.38 mg/dL (0.2-1.3); CALC OSMOLALITY 298 mosm/kg (275-300); CALCIUM 9.4 mg/dL (8.5-10.1); CARBON DIOXIDE 24.2 mmol/L (21.0-32.0); CHLORIDE - SERUM 106 mmol/L (98-107); GLUCOSE 122 mg/dL (74-106); POTASSIUM - SERUM 4.9 mmol/L (3.5-5.1); PROTEIN - SERUM 6.7 g/dL (6.4-8.2); SODIUM 145 mmol/L (136-145); UREA NITROGEN 38 mg/dL (7-18); eGFR NON AFRICAN AMERICAN 6 mL/min (90-120)
[2018-08-05 19:46] LABS: CKMB 2.7 U/L (0.0-3.6); CREATINE KINASE 206 UL (21-232); MAGNESIUM - SERUM 2.3 mg/dL (1.8-2.4)
[2018-08-05 19:48] LABS: TROPONIN-I 0.066 ng/mL (0.000-0.060)
[2018-08-05] MEDS ORDERED: NORCO 10-325 TA1 TAB PO (23:32)
[2018-08-05 23:53] VITALS: BMI 27.8
[2018-08-06 01:14] VITALS: BP 145/76
[2018-08-06 01:25] LABS: CKMB 2.5 U/L (0.0-3.6); CREATINE KINASE 161 UL (21-232); TROPONIN-I 0.287 ng/mL (0.000-0.060)
[2018-08-06 05:54] VITALS: BP 152/83
[2018-08-06 08:44] VITALS: BP 169/88
[2018-08-06 09:08] LABS: CKMB 4.1 U/L (0.0-3.6)
[2018-08-06 09:09] LABS: CREATINE KINASE 324 UL (21-232)
[2018-08-06 09:10] LABS: TROPONIN-I 0.317 ng/mL (0.000-0.060)
[2018-08-06 13:07] VITALS: BP 158/83
[2018-08-06 13:08] VITALS: Ht 188 cm; Wt 96.8 kg
[2018-08-06 14:44] LABS: CKMB 2.6 U/L (0.0-3.6); CREATINE KINASE 158 UL (21-232)
[2018-08-06 14:47] LABS: TROPONIN-I 0.292 ng/mL (0.000-0.060)
[2018-08-07] VITALS: BP 157/79
[2018-08-07 04:56] VITALS: BP 147/74
[2018-08-07 08:46] VITALS: BP 155/81
[2018-08-07 08:54] LABS: ANION GAP 18.3 mmol/L (8-16); CALCIUM 9.5 mg/dL (8.5-10.1); CARBON DIOXIDE 26.6 mmol/L (21.0-32.0); CHOL - HDL RATIO 3.9 ratio (2.3-4.9); CREATININE - SERUM 8.8 mg/dL (0.6-1.3); LDL-HDL RATIO 2.6 ratio (1.5-3.5); POTASSIUM - SERUM 4.9 mmol/L (3.5-5.1)
[2018-08-07] MEDS ORDERED: PLAVIX75 MG PO (10:19)
[2018-08-07] MEDS ORDERED: NEPHRO-VITE RX1 TAB PO (10:24)
[2018-08-07] MEDS ORDERED: COZAAR100 MG PO (10:25)
[2018-08-07] MEDS ORDERED: FERRIC CITRATE210 MG PO (10:27)
[2018-08-07] MEDS ORDERED: ASPIRIN81 MG PO (10:35)
== END 2018-08-07 14:18 | disposition home or self-care (01) ==
LOC: D.ER 18:17 → D.EDHOLD 21:13 → OBSVTIME 21:13 → D.M2 21:13
PROVIDERS: Family Medicine; Internal Medicine Nephrology
DX: I21.4 Non-ST elevation (NSTEMI) myocardial infarction (principal); I25.119 Atherosclerotic heart disease of native coronary artery with unspecified angina pectoris; E11.22 Type 2 diabetes mellitus with diabetic chronic kidney disease; I12.0 Hypertensive chronic kidney disease with stage 5 chronic kidney disease or end stage renal disease; N18.6 End stage renal disease; Z99.2 Dependence on renal dialysis; D64.9 Anemia, unspecified; F32.9 Major depressive disorder, single episode, unspecified

== ENCOUNTER 2018-10-23 19:32 | Inpatient (IN) | payer MEDICARE ==
[~2018-10-23] VITALS: Ht 188 cm; Wt 91.2 kg
[~2018-10-23 19:32] MED LIST changes: +ASPIRIN81 MG PO; +COZAAR100 MG PO; +HYDRALAZINE HCL50 MG PO; +NEPHRO-VITE RX1 TAB PO; +NORCO 10-325 TA1 TAB PO; +[UNRECOGNIZED DRUG - OTHER] PO
[2018-10-23 20:36] LABS: BASOPHILS 0.1 % (0-2); EOSINOPHILS 2.2 % (0-7); HEMATOCRIT 33.6 % (42.0-54.0); HEMOGLOBIN 10.6 g/dL (13.5-17.5); IMMATURE GRANULOCYTES 0.1 % (0-5); LYMPHOCYTES 9.3 % (15-50); MCHC 31.5 g/dL (31.0-37.0); MCV 95.2 fL (80.0-100.0); MEAN PLATELET VOLUME 10.2 fL (7.4-10.4); NEUTROPHILS 84.3 % (40-80); PLATELET COUNT 220 10x3/uL (130-400); RBC 3.53 10x6/uL (4.20-6.10); RDW 15.7 % (11.5-14.5); WBC 7.2 10x3/uL (4.8-10.8)
[2018-10-23 20:59] LABS: APTT 33.9 SECONDS (22.8-39.4); INR 1.22 (0.85-1.17); PROTIME 14.8 SECONDS (11.6-15.0)
[2018-10-23 21:00] LABS: ALBUMIN 3.8 g/dL (3.4-5.0); ALKALINE PHOSPHATASE 75 U/L (46-116); ALT (SGPT) 15 U/L (10-68); CALC OSMOLALITY 301 mosm/kg (275-300); CALCIUM 9.2 mg/dL (8.5-10.1); CARBON DIOXIDE 21.4 mmol/L (21.0-32.0); CHLORIDE - SERUM 104 mmol/L (98-107); CREATININE - SERUM 10.1 mg/dL (0.6-1.3); GLUCOSE 124 mg/dL (74-106); POTASSIUM - SERUM 5.6 mmol/L (3.5-5.1); SODIUM 145 mmol/L (136-145); UREA NITROGEN 46 mg/dL (7-18); eGFR NON AFRICAN AMERICAN 6 mL/min (90-120)
[2018-10-23 21:15] LABS: CKMB 2.2 U/L (0.0-3.6); CREATINE KINASE 345 UL (21-232)
[2018-10-23 21:16] LABS: PRO BNP 34087 pg/mL (0-125)
[2018-10-23 21:17] LABS: TROPONIN-I 0.279 ng/mL (0.000-0.060)
[2018-10-24] VITALS (7 sets, daily range): BP systolic 134–165; BP diastolic 75–89; Ht 188 cm; Wt 91.2 kg
--- NOTE | 2018-10-24 00:25 | NUR ---
PT TO FLOOR VIA STRETCHER ACCOMPANIED BY PARENTS AND HOSPITAL STAFF. PT A/O X4, STATES HEADACHE PAIN OF 10/10. NOTIFIED JOSEPH, RENAL CUTTING TABLE OPERATOR TOBACCO STRIPPING MACHINE OPERATOR. R EJ PIV PATENT, C/D/I, VANC INFUSING ON ARRIVAL. RR EVEN AND UL. PT STATES HE IS COUGHING UP LAYLA COLORED SPUTUM. STILL NO CALL BACK FROM RENAL CUTTING TABLE OPERATOR AT 0105. WILL CALL AGAIN. NO OTHER NEEDS NOTED AT THIS TIME. CL IN REACH, SR X2, BED IN LOWEST POSITION.
--- NOTE | 2018-10-24 00:40 | NUR ---
PT STATES THAT HIS JAW, SINUS AREA, AND HEAD ARE ALL HURTING. ECG PERFORMED AND SHOWS NORMAL SINUS RYHTHM. TELEMTRY ON. PT RESTING IN BED WITH VSS AND SPO2 AT 99% ON 3L OF O2.
--- NOTE | 2018-10-24 02:13 | NUR ---
EMMY RUIZ, RESTAURANT CREW MEMBER AGAIN. ORDERE TRAMADOL AND TYLENOL PER RENAL RESTAURANT CREW MEMBER. OVERODE FROM PYXIS AND PT IS ASLEEP IN ROOM NOW AND STATES HIS PAIN HAS GONE AWAY AND DOESN'T WANT THE TYLENOL. WCTM
--- NOTE | 2018-10-24 08:00 | NUR ---
RECIEVED BEDSIDE REPORT. AM ROUNDS COMPLETED. VSS, AAOX4. PT REFUSED ALL HIS MEDS. HE STATES ALWAYS TAKES THEM AFTER DIALYSIS. ONLY HEPARIN AND ASPIRIN GIVEN AT THIS TIME. PT ALSO STATES THAT DOES NOT FEEL LIKE EATING HIS BREAKFAST. DENIES FURTHER NEEDS AT THIS TIME. FRIEND AT BEDSIDE, AWAITING DIALYSIS. WILL CPOC.
[2018-10-24 09:01] LABS: ANION GAP 22.3 mmol/L (8-16); CALCIUM 9.5 mg/dL (8.5-10.1); CARBON DIOXIDE 23.4 mmol/L (21.0-32.0); CREATININE - SERUM 11.2 mg/dL (0.6-1.3); POTASSIUM - SERUM 5.7 mmol/L (3.5-5.1); VANCOMYCIN - RANDOM 15.4 ug/mL (10.0-20.0)
[2018-10-24 10:39] LABS: BASOPHILS 0.3 % (0-2); EOSINOPHILS 1.1 % (0-7); HEMATOCRIT 31.5 % (42.0-54.0); IMMATURE GRANULOCYTES 0.2 % (0-5); LYMPHOCYTES 4.9 % (15-50); MCH 30.1 pg (26.0-34.0); MCHC 31.7 g/dL (31.0-37.0); MCV 94.9 fL (80.0-100.0); MEAN PLATELET VOLUME 10.6 fL (7.4-10.4); MONOCYTES 9.6 % (2-11); NEUTROPHILS 83.9 % (40-80); PLATELET COUNT 214 10x3/uL (130-400); RBC 3.32 10x6/uL (4.20-6.10); RDW 15.8 % (11.5-14.5)
--- NOTE | 2018-10-24 11:00 | NUR ---
PT CURRENTLY RECIEVING DIALYSIS AT BEDSIDE. DENIES A NEEDS AT THIS TIME. WILL CPOC. CL IN REACH, BED IN LOW, SR UP X2.
--- NOTE | 2018-10-24 14:30 | NUR ---
PT DIALYSIS COMPLETED. CORPORATE HUMAN RESOURCES MANAGER STATES SHE GOT OUT 2.9L. POST DIALYSIS VS, BP 147/67, HR 69, R 20, SP02 95. PT STATES HE IS HUNGRY. ORDERED PT TURKEY SANDWICH. PT STILL REFUSED HIS MEDS AT THIS TIME STATES HE WANT TO EAT SOMETHING BEFORE HE TAKES ANY MEDICINE. PT DENIES ANY FURTHER NEEDS AT THIS TIME. CL IN REACH, BED IN LOW, SR UP X2.
--- NOTE | 2018-10-24 19:50 | NUR ---
RESUMING PT CARE. PT IS ALERT LAYING IN BED WITH NO C/O VOICED AT THIS TIME. NO S/S OF ACUTE DISTRESS. RESPIRATIONS UNLABORED. PT HAS A RT IJ THAT IS SALINE LOCK.. PT LEFT ARM RESERVED. PT ON 3 LITERS OF O2. BED IN LOW POSITION WITH CALL LIGHT IN REACH. WILL CONTINUE TO MONITOR PT AND FOLLOW PLAN OF CARE.
--- NOTE | 2018-10-24 23:53 | NUR ---
PT STATES HE THINKS HIS BLOOD SUGAR IS LOW. BLOOD SUGAR TAKEN THE RESULT WAS 45. PT REFUSED TO HAVE D 50. PT WAS ALERT AND TALKING AND WANTED A SANDWICH TO EAT AND SOME APPLE JUICE TO DRINK.
[2018-10-25] VITALS (7 sets, daily range): BP systolic 126–163; BP diastolic 74–90
[2018-10-25 05:43] LABS: BASOPHILS 0.2 % (0-2); EOSINOPHILS 1.6 % (0-7); HEMATOCRIT 32.4 % (42.0-54.0); HEMOGLOBIN 10.3 g/dL (13.5-17.5); IMMATURE GRANULOCYTES 0.2 % (0-5); LYMPHOCYTES 6.9 % (15-50); MCH 29.9 pg (26.0-34.0); MCHC 31.8 g/dL (31.0-37.0); MCV 93.9 fL (80.0-100.0); MEAN PLATELET VOLUME 10.4 fL (7.4-10.4); MONOCYTES 5.8 % (2-11); NEUTROPHILS 85.3 % (40-80); PLATELET COUNT 217 10x3/uL (130-400); RBC 3.45 10x6/uL (4.20-6.10); RDW 15.5 % (11.5-14.5)
[2018-10-25 06:11] LABS: WBC 6.2 10x3/uL (4.8-10.8)
--- NOTE | 2018-10-25 06:25 | NUR ---
PT HAS TEMP OF 102.7 TYLENOL 500MG WAS GIVEN FOR FEVER. NO S/S OF ACUTE DISTRESS. BED IN LOW POSITION WITH CALL LIGHT IN REACH. WILL CONTINUE TO MONITOR PT.
--- NOTE | 2018-10-25 06:27 | NUR ---
PT HYPOGLYCEMIA. BLOOD SUGAR WAS 41. 50 ML OF DEXTROSE INJECTION GIVEN. NO ACUTE S/S OF DISTRESS. BED IN LOW POSITION WITH CALL LIGHT IN REACH. WILL CONTINUE TO MONITOR PT AND FOLLOW PLAN OF CARE.
[2018-10-25 06:43] LABS: ANION GAP 21.7 mmol/L (8-16); CALCIUM 9.4 mg/dL (8.5-10.1); CREATININE - SERUM 8.5 mg/dL (0.6-1.3); VANCOMYCIN - RANDOM 24.8 ug/mL (10.0-20.0)
--- NOTE | 2018-10-25 06:44 | NUR ---
AFTER ADMINSTRATION OF DEXTROSE 50ML. PT BLOOD SUGAR IS 119. WILL REPORT TO NURSE AT SHIFT REPORT. BED IN LOW POSITION WITH CALL LIGHT IN REACH.
[2018-10-25 06:48] LABS: POTASSIUM - SERUM 4.7 mmol/L (3.5-5.1)
--- NOTE | 2018-10-25 08:33 | NUR ---
AM MEDS GIVEN AT THIS TIME, BP MEDS HELD FOR DIALYSIS. PT'S BLOOD SUGAR IS 53, PT WANTS TO EAT BREAKFAST AND THEN HAVE ME RECHECK TO SEE IF ITS COMING UP. REFUSED TO THE DEXTROSE AT THIS TIME. PT A/O X4, RESP EVEN AND NOLABORED ON 3L. RT IJ PIV SL. PT DENIES ANY NEEDS AT THIS TIME. CALL LIGHT IN REACH, NAD NOTED, WILL CONTINUE TO MONITOR.
--- NOTE | 2018-10-25 11:46 | NUR ---
BLOOD SUGAR OF 50. GAVE PT 25ML OF DEXTROSE AT THIS TIME. BROUGHT BLOOD SUGAR OF UP TO 145. PT DENIES ANY NEEDS AT THIS TIME. WILL CONTINUE TO MONITOR.
--- NOTE | 2018-10-25 14:51 | NUR ---
PT HAD ME CHECK HIS BLOOD SUGAR AND IT WAS 48, GAVE PT 25ML OF 50% DEXTROSE. BLOOD SUGAR CAME UP TO 116. KLAUDIA DIALYISIS NURSE FIXING TO START DIALYSIS ON PT. IVPB ZOSYN HUNG AT THIS TIME. PT DENIES ANY NEEDS AT THIS TIME. CALL LIGHT IN REACH,NAD NOTED, WILL CONTINUE TO MONITOR.
--- NOTE | 2018-10-25 16:24 | NUR ---
BLOOD SUGAR OF 61, GAVE 25ML OF 50% DEXTROSE. RECHECKED PT'S BLOOD SUGR AND IT CAME UP TO 147. ENCOURAGE PT TO TRY AND EAT HIS DINNER WHEN THEY BRING IT. PT STILL ON DIALYSIS HAD ABOUT 36MINUTES LEFT. PT DENIES ANY OTHER NEEDS AT THIS TIME. CALL LIGHT IN REACH, NAD NOTED, WILL CONTINUE TO MONITOR.
--- NOTE | 2018-10-25 18:25 | NUR ---
CHECKED BLOOD SUGAR AND NOW 79. ENCOURAGE PT TO TRY AND EAT SOME DINNER. WILL PASS ALONG IN REPORT TO MONITOR PT'S BLOOD SUGAR CLOSELY.
--- NOTE | 2018-10-25 19:30 | NUR ---
RECEIVED REPORT, WILL ASSUME CARE OF PT, DENIES ANY NEEDS AT THIS TIME, BED IS LOW, SRX2, CALL LIGHT IN REACH, WILL CONTINUE PLAN OF CARE
--- NOTE | 2018-10-25 21:00 | NUR ---
FEVER-101.6-GAVE TYLENOL ORDER
[2018-10-26] VITALS: BP 111/75
--- NOTE | 2018-10-26 00:40 | NUR ---
I have reviewed this patient and I concur with the Shift Assessment completed by the Licensed Practical Nurse today this shift.
[2018-10-26 04:00] VITALS: BP 121/79
[2018-10-26 05:13] LABS: BASOPHILS 0.4 % (0-2); EOSINOPHILS 3.1 % (0-7); HEMATOCRIT 36.5 % (42.0-54.0); HEMOGLOBIN 11.8 g/dL (13.5-17.5); IMMATURE GRANULOCYTES 0.2 % (0-5); LYMPHOCYTES 15.8 % (15-50); MCH 30.3 pg (26.0-34.0); MCHC 32.3 g/dL (31.0-37.0); MCV 93.6 fL (80.0-100.0); MEAN PLATELET VOLUME 10.1 fL (7.4-10.4); MONOCYTES 9.5 % (2-11); PLATELET COUNT 217 10x3/uL (130-400); RDW 15.2 % (11.5-14.5)
[2018-10-26 05:33] LABS: WBC 4.6 10x3/uL (4.8-10.8)
[2018-10-26 05:39] LABS: ANION GAP 21.2 mmol/L (8-16); CARBON DIOXIDE 26.8 mmol/L (21.0-32.0); CREATININE - SERUM 8.1 mg/dL (0.6-1.3); VANCOMYCIN - RANDOM 19.3 ug/mL (10.0-20.0)
[2018-10-26 07:30] VITALS: BP 124/72
[2018-10-26 09:31] LABS: PHOSPHOROUS 8.1 mg/dL (2.5-4.9)
--- NOTE | 2018-10-26 11:14 | NUR ---
BLOOS SUGAR OF 110, NO COVERAGE NEEDED PER S/S. PT RESTING IN BED, DENIES ANY NEEDS AT THIS TIME. CALL LIGHT IN REACH, NAD NOTED, WILL CONTINUE TO MONITOR.
[2018-10-26 11:30] VITALS: BP 114/72
--- NOTE | 2018-10-26 13:16 | NUR ---
CALLED RESPIRATORY AND INFORMED THEM THAT PT IS REQUESTING BREATHING TREATMENT.
[2018-10-26 15:30] VITALS: BP 133/78
--- NOTE | 2018-10-26 15:57 | NUR ---
BLOOD SUGAR OF 105, NO COVERAGE NEEDED PER S/S. PT DENIES ANY NEEDS AT THIS TIME. CALL LIGHT IN REACH, NAD NOTED.
--- NOTE | 2018-10-26 19:30 | NUR ---
RECEIVED REPORT, WILL ASSUME CARE OF PT, DENIES ANY NEEDS AT THIS TIME, BED IS LOW, SRX1, CALL LIGHT IN REACH, WILL CONTINUE PLAN OF CARE
[2018-10-26 21:53] VITALS: BP 118/72
--- NOTE | 2018-10-27 02:28 | NUR ---
I have reviewed this patient and I concur with the Shift Assessment completed by the Licensed Practical Nurse today this shift.
[2018-10-27 04:53] VITALS: BP 133/74
[2018-10-27 07:11] LABS: BASOPHILS 0.5 % (0-2); EOSINOPHILS 1.6 % (0-7); HEMATOCRIT 30.5 % (42.0-54.0); LYMPHOCYTES 17.9 % (15-50); MCHC 32.8 g/dL (31.0-37.0); MEAN PLATELET VOLUME 10.6 fL (7.4-10.4); MONOCYTES 14.5 % (2-11); NEUTROPHILS 65.5 % (40-80); PLATELET COUNT 203 10x3/uL (130-400); RBC 3.33 10x6/uL (4.20-6.10); RDW 15.2 % (11.5-14.5); WBC 4.3 10x3/uL (4.8-10.8)
[2018-10-27 07:30] LABS: ANION GAP 20.8 mmol/L (8-16); CALCIUM 9.1 mg/dL (8.5-10.1); CARBON DIOXIDE 25.3 mmol/L (21.0-32.0); VANCOMYCIN - RANDOM 17.2 ug/mL (10.0-20.0)
[2018-10-27 07:33] LABS: CREATININE - SERUM 10.7 mg/dL (0.6-1.3); PHOSPHOROUS 9.5 mg/dL (2.5-4.9); POTASSIUM - SERUM 4.1 mmol/L (3.5-5.1)
[2018-10-27 07:42] LABS: MCV 91.6 fL (80.0-100.0)
[2018-10-27 08:50] VITALS: BP 114/71
--- NOTE | 2018-10-27 09:14 | NUR ---
AM MEDS GIVEN AT THIS TIME. APRESOLINE AND NORVACS HELD AT THIS TIME. PT IN BED, DENIES ANY NEEDS AT THIS TIME. PT A/O X4, RESP EVEN AND NONLABORED ON 3L. CALL LIGHT IN REACH, NAD NOTED, WILL CONTINUE PLAN OF CARE.
--- NOTE | 2018-10-27 11:35 | NUR ---
BLOOD SUGAR OF 144, NO COVERAGE NEEDED PER S/S. PT DENIES ANY NEEDS AT THIS TIME. CALL LIGHT IN REACH,NAD NOTED.
[2018-10-27 11:53] VITALS: BP 150/73
--- NOTE | 2018-10-27 19:30 | NUR ---
RECEIVED REPORT, WILL ASSUME CARE OF PT, DENIES ANY NEEDS AT THIS TIME, BED IS LOW, SRX2, CALL LIGHT IN REACH, WILL CONTINUE PLAN OF CARE
[2018-10-27 21:03] VITALS: BP 112/58
--- NOTE | 2018-10-27 21:20 | NUR ---
REFUSING TO WEAR TELEMTRY
[2018-10-28 05:27] LABS: BASOPHILS 0.3 % (0-2); EOSINOPHILS 2.4 % (0-7); HEMATOCRIT 31.6 % (42.0-54.0); HEMOGLOBIN 10.3 g/dL (13.5-17.5); IMMATURE GRANULOCYTES 0.3 % (0-5); LYMPHOCYTES 22.8 % (15-50); MCH 29.7 pg (26.0-34.0); MCHC 32.6 g/dL (31.0-37.0); MCV 91.1 fL (80.0-100.0); MEAN PLATELET VOLUME 9.9 fL (7.4-10.4); MONOCYTES 11.8 % (2-11); NEUTROPHILS 62.4 % (40-80); PLATELET COUNT 197 10x3/uL (130-400); RBC 3.47 10x6/uL (4.20-6.10); RDW 15.2 % (11.5-14.5); WBC 3.8 10x3/uL (4.8-10.8)
[2018-10-28 05:47] LABS: ANION GAP 16.9 mmol/L (8-16); CALCIUM 9.7 mg/dL (8.5-10.1); CARBON DIOXIDE 29.2 mmol/L (21.0-32.0); CREATININE - SERUM 8.9 mg/dL (0.6-1.3); POTASSIUM - SERUM 4.1 mmol/L (3.5-5.1); VANCOMYCIN - RANDOM 23.8 ug/mL (10.0-20.0)
[2018-10-28 06:25] VITALS: BP 130/73
[2018-10-28 09:13] VITALS: BP 129/79
--- NOTE | 2018-10-28 09:24 | NUR ---
PT SITTING UP ON SIDE OF BED EATING BREAKFAST. A/O X 4. UP AB ROQUE. VITALS STABLE TOOK MEDS WITHOUT DIFFICULTY. PT REFUSED RENAGEL THIS AM. TAKES OWN BINDER. PT UPSET THAT EFFEXOR GOT CHANGED FROM 75 MG TO 25 MG. 3L 02 VIA NC. R EJ PERIPHERAL IV SL. L AV FISTULA, + BRUIT AND THRILL. ON DROPLET PRECAUTIONS. NO FURTHER COMPLAINTS AT THIS TIME. BED LOWERED AND LOCKED. CL IN REACH. WILL CPOC.
--- NOTE | 2018-10-28 10:40 | MORECARE ---
CASE MANAGEMENT DISCHARGE SUMMARY PATIENT: DARLENE VILLATORO UNIT: [id number] ADM DATE: 10/23/18 AGE: 48 : 74 SEX: M ROOM/BED: D.2103 AUTHOR: CINDY ROMERO PHYSICIAN: REFERRING PHYSICIAN: CIRO CALVO MD DATE OF SERVICE: 10/28/18 Discharge Plan Patient Name: DARLENE VILLATORO [facility] [facility] 1970 Planned Disposition: Anticipated Discharge Date: Discharge Date: Expected LOS: Initial Reviewer: [email or web address] Initial Review Date: 10/28/2018 Generated: 10/28/18 11:39 am Patient Name: DARLENE VILLATORO Page [phone] at 1040 All edits/amendments must be made on the electronic document DICTATION DATE: 10/28/18 1039 RE DYE HAND: IGGY 10/28/18 1039 RPT#: [id number] DC DATE: STATUS: ADM IN [facility] [address] [place] [address] END OF REPORT
--- NOTE | 2018-10-28 10:49 | MORECARE ---
CASE MANAGEMENT DISCHARGE SUMMARY PATIENT: DARLENE VILLATORO UNIT: [id number] ADM DATE: 10/23/18 AGE: 48 : 74 SEX: M ROOM/BED: D.2106 AUTHOR: HEATHERDOC PHYSICIAN: REFERRING PHYSICIAN: CIRO CALVO MD DATE OF SERVICE: 10/28/18 Discharge Plan Patient Name: DARLENE VILLATORO Facility: [facility]:[place] : 1970 Planned Disposition: Anticipated Discharge Date: Discharge Date: Expected LOS: Initial Reviewer: [email or web address] Initial Review Date: 10/28/2018 Generated: 10/28/18 11:49 am Comments DCP- Discharge Planning Updated by [email or web address]: Mariajose Rios on 10/28/18 9:[address] Patient Name: DARLENE VILLATORO Admission Status: ER Accout number: [id number] Admission Date: 10-23-2018 : 1970 Admission Diagnosis:SHORTNESS OF BREATH Attending: CIRO CALVO Current LOS: 5 Anticipated DC Date: Planned Disposition: Primary Insurance: MEDICARE A & B Discharge Planning Comments: CM MET WITH PATIENT AND PATIENT'S MOTHER ABOUT DC PLANNING/NEEDS. STATES HE DOESN'T THINK HE WILL HAVE ANY NEEDS WHEN DISHCARGED. HE IS ON 02 AND NEBS HERE AT THE HOSPITAL BECAUSE OF THE PNEUMONIA, STATES DOESN'T KNOW IF HE WILL NEED THAT WHEN DISCHARGED. CM WILL FOLLOW AND ASSIST NEEDED WITH DC PLANNING/NEEDS. Workshop Manager: Mariajose Rios DCPIA - Discharge Planning Initial Assessment Updated by [email or web address]: Mariajose Rios on 10/28/18 10:44 am * Is the patient Alert and Oriented? Yes * PCP UMESH * [facility]acy [facility] * Preadmission Environment Home with Family * ADLs Independent * Equipment Glucometer * List name and contact numbers for known caregivers / representatives who currently or will assist patient after discharge: MILTON RAMSEY, MOTHER, * Verbal permission to speak to the caregivers and representatives has been obtained from the patient. Yes * Community resources currently utilized None * Additional services required to return to the preadmission environment? No * Can the patient safely return to the preadmission environment? Yes * Has this patient been hospitalized within the prior 30 days at any hospital? No Last DP export: 10/28/18 9:40 a Patient Name: DARLENE VILLATORO Page [phone] at 1049 All edits/amendments must be made on the electronic document DICTATION DATE: 10/28/181047 FINANCE ATTORNEY: IGGY 10/28/18 1048 RPT#: [id number] DC DATE: STATUS: ADM IN [facility] [address] [place] [address] END OF REPORT
[2018-10-28 13:13] VITALS: BP 146/92
--- NOTE | 2018-10-28 13:19 | NUR ---
I have reviewed this patient and I concur with the Shift Assessment completed by the Licensed Practical Nurse today this shift.
--- NOTE | 2018-10-28 14:40 | NUR ---
Nutrition follow-up: Diet: Renal PO intake 100% of most meals PO4 elevated; binders added Labs reviewed Wt: 199# RDN following.
[2018-10-28 16:41] VITALS: BP 130/75
--- NOTE | 2018-10-28 19:25 | NUR ---
INTRODUCED SELF TO PATIENT, PATIENT TALKING WITH HIS VISITOR. RESP EVEN AND UNLABORED, NO NEEDS AT THIS TIME.
[2018-10-28 21:13] VITALS: BP 139/75
[2018-10-29 01:54] VITALS: BP 146/85
--- NOTE | 2018-10-29 02:48 | NUR ---
PATIENT RESTING QUIETLY WITH EYES CLOSED, RESP EVEN AND UNLABORED. NO S/SX OF DISTRESS OR PAIN AT THIS TIME. BED IN LOWEST POSITION, CALL LIGHT IN REACH.
[2018-10-29 04:39] LABS: BASOPHILS 0.4 % (0-2); EOSINOPHILS 3.3 % (0-7); HEMATOCRIT 30.5 % (42.0-54.0); IMMATURE GRANULOCYTES 0.7 % (0-5); LYMPHOCYTES 25.4 % (15-50); MCH 29.4 pg (26.0-34.0); MCHC 32.8 g/dL (31.0-37.0); MCV 89.7 fL (80.0-100.0); MEAN PLATELET VOLUME 9.5 fL (7.4-10.4); MONOCYTES 10.4 % (2-11); NEUTROPHILS 59.8 % (40-80); PLATELET COUNT 216 10x3/uL (130-400); WBC 4.5 10x3/uL (4.8-10.8)
[2018-10-29 04:54] LABS: ALBUMIN 3.1 g/dL (3.4-5.0); ANION GAP 18.1 mmol/L (8-16); BILIRUBIN - TOTAL 0.31 mg/dL (0.2-1.3); CALCIUM 9.4 mg/dL (8.5-10.1); CARBON DIOXIDE 26.2 mmol/L (21.0-32.0); CREATININE - SERUM 11.1 mg/dL (0.6-1.3); PHOSPHOROUS 8.4 mg/dL (2.5-4.9); POTASSIUM - SERUM 4.3 mmol/L (3.5-5.1)
[2018-10-29 05:13] VITALS: BP 140/85
--- NOTE | 2018-10-29 07:45 | NUR ---
INITIAL ROUNDING ON THE PATIENT, CAREGIVERS INTRODUCED, WHITE BOARD UPDATED. INFORMED PATIENT THE ORDER TO COLLECT A SWAB NASAL SAMPLE FOR THE FLU TEST. PATIENT DENIES PAIN AT THIS TIME. PATIENT HAS PLANNED DIALYSIS TODAY. O2 VIA NC IN [place].
[2018-10-29 08:18] VITALS: BP 127/68
[2018-10-29 11:13] VITALS: BP 160/89
[2018-10-29 15:24] VITALS: BP 140/69
--- NOTE | 2018-10-29 19:50 | NUR ---
RESUMED CARE OF PT, UP IN CHAIR RESPIRATIONS EVEN AND UNLABORED ON 3LPM VIA NC. RIGHT IJ SALINE LOCKED. PLAN OF CARE DISCUSSED, NO NEEDS VOICED AT THIS TIME. CALL LIGHT IN REACH. SEE NURSE ASSESSMENT.
[2018-10-30 02:38] VITALS: BP 124/78
[2018-10-30 05:52] LABS: BASOPHILS 0.4 % (0-2); EOSINOPHILS 2.7 % (0-7); HEMATOCRIT 30.2 % (42.0-54.0); IMMATURE GRANULOCYTES 1.1 % (0-5); LYMPHOCYTES 23.8 % (15-50); MCH 29.8 pg (26.0-34.0); MCHC 33.1 g/dL (31.0-37.0); MCV 89.9 fL (80.0-100.0); MEAN PLATELET VOLUME 9.9 fL (7.4-10.4); MONOCYTES 11.4 % (2-11); NEUTROPHILS 60.6 % (40-80); PLATELET COUNT 248 10x3/uL (130-400); RBC 3.36 10x6/uL (4.20-6.10); RDW 15.1 % (11.5-14.5); WBC 4.5 10x3/uL (4.8-10.8)
[2018-10-30 06:08] LABS: ANION GAP 18.5 mmol/L (8-16); CALCIUM 9.4 mg/dL (8.5-10.1); CARBON DIOXIDE 26.2 mmol/L (21.0-32.0); CREATININE - SERUM 10.7 mg/dL (0.6-1.3); POTASSIUM - SERUM 4.7 mmol/L (3.5-5.1)
--- NOTE | 2018-10-30 07:15 | NUR ---
INITIAL ROUNDING ON THE PATIENT. PATIENT RESTING IN THE BED, LIGHTS OFF, LOOKING AT HIS CELL PHONE. PATIENT DENIES PAIN, HE IS COUGHING, NON PRODUCTIVE.
[2018-10-30 08:06] VITALS: BP 128/71
--- NOTE | 2018-10-30 12:02 | NUR ---
INSTRUCTED THE PATIENT HE IS NO LONGER ON ISOLATION, SIGN REMOVED FROM THE DOOR
[2018-10-30 12:28] VITALS: BP 145/83
[2018-10-30 14:42] VITALS: BP 147/86
--- NOTE | 2018-10-30 19:25 | NUR ---
PT RESTING IN BED ALERT AND ORIENTED. PT REFUSES SCD'S. PT DENIES ANY NEEDS OR PAIN AT THIS TIME. NO S/S OF DISTRESS. WILL CONTINUE TO MONITOR.
[2018-10-30 20:00] VITALS: BP 153/86
[2018-10-31 00:30] VITALS: BP 144/67
--- NOTE | 2018-10-31 03:26 | NUR ---
PT RESTING IN BED WITH EYES CLOSED. RR EVEN AND UNLABORED. BED LOW CALL LIGHT WITHIN REACH. WILL CONTINUE TO MONITOR.
[2018-10-31 04:00] VITALS: BP 143/81
[2018-10-31 05:07] LABS: BASOPHILS 0.2 % (0-2); HEMATOCRIT 30.6 % (42.0-54.0); HEMOGLOBIN 9.9 g/dL (13.5-17.5); IMMATURE GRANULOCYTES 0.8 % (0-5); LYMPHOCYTES 23.8 % (15-50); MCH 29.2 pg (26.0-34.0); MCHC 32.4 g/dL (31.0-37.0); MCV 90.3 fL (80.0-100.0); MEAN PLATELET VOLUME 9.6 fL (7.4-10.4); MONOCYTES 8.1 % (2-11); NEUTROPHILS 64.1 % (40-80); RBC 3.39 10x6/uL (4.20-6.10); RDW 15.1 % (11.5-14.5); WBC 5.3 10x3/uL (4.8-10.8)
[2018-10-31 05:09] LABS: PLATELET COUNT 299 10x3/uL (130-400)
[2018-10-31 05:59] LABS: ANION GAP 17.7 mmol/L (8-16); CALCIUM 9.6 mg/dL (8.5-10.1); CARBON DIOXIDE 26.9 mmol/L (21.0-32.0); CREATININE - SERUM 13.3 mg/dL (0.6-1.3)
[2018-10-31 06:02] LABS: PHOSPHOROUS 9.6 mg/dL (2.5-4.9); POTASSIUM - SERUM 5.6 mmol/L (3.5-5.1)
[2018-10-31 09:46] VITALS: BP 151/87
[2018-10-31] MEDS ORDERED: Levaquin PO (11:38)
[2018-10-31 12:00] VITALS: BP 136/86
--- NOTE | 2018-10-31 12:25 | MORECARE ---
CASE MANAGEMENT DISCHARGE SUMMARY PATIENT: DARLENE VILLATORO UNIT: [id number] ADM DATE: 10/23/18 AGE: 48 : 74 SEX: M ROOM/BED: D.2103 AUTHOR: HEATHER,DOC PHYSICIAN: REFERRING PHYSICIAN: CIRO CALVO MD DATE OF SERVICE: 10/31/18 Discharge Plan Patient Name: DARLENE VILLATORO Facility: [facility]:[place] : 1970 Planned Disposition: Home Anticipated Discharge Date: 10/31/18 Discharge Date: Expected LOS: 8 Initial Reviewer: [email or web address] Initial Review Date: 10/28/2018 Generated: 10/31/18 1:25 pm Comments DCP- Discharge Planning Updated by [id number]: Mariajose Rios on 10/28/18 9:[address] Patient Name: DARLENE VILLATORO Admission Status: ER Accout number: [id number] Admission Date: 10-23-2018 : 1970 Admission Diagnosis:SHORTNESS OF BREATH Attending: CIRO CALVO Current LOS: 5 Anticipated DC Date: Planned Disposition: Primary Insurance: MEDICARE A & B Discharge Planning Comments: CM MET WITH PATIENT AND PATIENT'S MOTHER ABOUT DC PLANNING/NEEDS. STATES HE DOESN'T THINK HE WILL HAVE ANY NEEDS WHEN DISHCARGED. HE IS ON 02 AND NEBS HERE AT THE HOSPITAL BECAUSE OF THE PNEUMONIA, STATES DOESN'T KNOW IF HE WILL NEED THAT WHEN DISCHARGED. CM WILL FOLLOW AND ASSIST NEEDED WITH DC PLANNING/NEEDS. Fire Sprinkler Fitter: Mariajose Rios DCPIA - Discharge Planning Initial Assessment Updated by [email or web address]: Mariajose Rios on 10/28/18 10:44 am * Is the patient Alert and Oriented? Yes * PCP UMESH * [facility]acy [facility] * Preadmission Environment Home with Family * ADLs Independent * Equipment Glucometer * List name and contact numbers for known caregivers / representatives who currently or will assist patient after discharge: MILTON RAMSEY, MOTHER, * Verbal permission to speak to the caregivers and representatives has been obtained from the patient. Yes * Community resources currently utilized None * Additional services required to return to the preadmission environment? No * Can the patient safely return to the preadmission environment? Yes * Has this patient been hospitalized within the prior 30 days at any hospital? No Coverage Notice Reviewer: [id number] - Gera Maravilla Notice Issued Date-Time: 10/31/2018 9:50 Notice Type: IM Discharge Notice Notice Delivered To: Patient Relationship to Patient: [facility] Nurse Name: Delivery Method: HAND - Hand Delivered Britney Days: Prior Verbal Notification: Recipient Understood Notice: Yes Recipient Signature: Yes Med Rec Note Co-signed by Attending: Coverage Notice Comment: Last DP export: 10/28/18 9:49 a Patient Name: DARLENE VILLATORO Page [phone] at 1225 All edits/amendments must be made on the electronic document DICTATION DATE: 10/31/18 122 DATA CLERK: IGGY 10/31/18 1224 RPT#: [id number] DC DATE: STATUS: ADM IN [facility] [address] [place] [address] END OF REPORT
--- NOTE | 2018-10-31 12:35 | MORECARE ---
CASE MANAGEMENT DISCHARGE SUMMARY PATIENT: DARLENE VILLATORO UNIT: [id number] ADM DATE: 10/23/18 AGE: 48 : 74 SEX: M ROOM/BED: D.2103 AUTHOR: CINDY ROMERO PHYSICIAN: REFERRING PHYSICIAN: CIRO CALVO MD DATE OF SERVICE: 10/31/18 Discharge Plan Patient Name: DARLENE VILLATORO Facility: [facility]:[place] : 1970 Planned Disposition: Home Anticipated Discharge Date: 10/31/18 Discharge Date: Expected LOS: 8 Initial Reviewer: [email or web address] Initial Review Date: 10/28/2018 Generated: 10/31/18 1:35 pm Comments DCP- Discharge Planning Updated by [email or web address]: Gera Maravilla on 10/31/18 11:[address] Patient Name: DARLENE VILLATORO Encounter No: [id number] : 1970 Primary Insurance: MEDICARE A & B Anticipated DC Date: 10-31-2018 Planned Disposition: Home DCP follow-up note: CM RECEIVED HOME HEALTH AND DISCHARGE ORDER. CM MET WITH PT IN ROOM TO DISCUSS DISCHARGE NEEDS AND PLANNING. CM DISCUSSED AVAILABILITY OF HOME HEALTH, REHAB SERVICES AND MEDICAL EQUIPMENT. PT DENIES DISCHARGE NEEDS. PT SPECIFICALLY DENIES NEED FOR HOME HEALTH. PT REPORTS HIS FOLKS WILL TRANSPORT HOME AT DISCHARGE TODAY AFTER DIALYSIS. IMPORTANT MESSAGE FROM MEDICARE PROVIDED AND EXPLAINED. KYM Hanson DCP- Discharge Planning Updated by [email or web address]: Mariajose Rios on 10/28/18 9:[address] Patient Name: DARLENE VILLATORO Admission Status: ER Accout number: [id number] Admission Date: 10-23-2018 : 1970 Admission Diagnosis:SHORTNESS OF BREATH Attending: CIRO CALVO Current LOS: 5 Anticipated DC Date: Planned Disposition: Primary Insurance: MEDICARE A & B Discharge Planning Comments: CM MET WITH PATIENT AND PATIENT'S MOTHER ABOUT DC PLANNING/NEEDS. STATES HE DOESN'T THINK HE WILL HAVE ANY NEEDS WHEN DISHCARGED. HE IS ON 02 AND NEBS HERE AT THE HOSPITAL BECAUSE OF THE PNEUMONIA, STATES DOESN'T KNOW IF HE WILL NEED THAT WHEN DISCHARGED. CM WILL FOLLOW AND ASSIST NEEDED WITH DC PLANNING/NEEDS. Intelligence Officer Basic: Mariajose Rios DCPIA - Discharge Planning Initial Assessment Updated by [email or web address]: Mariajose Rios on 10/28/18 10:44 am * Is the patient Alert and Oriented? Yes * PCP UMESH * [facility] * Preadmission Environment Home with Family * ADLs Independent * Equipment Glucometer * List name and contact numbers for known caregivers / representatives who currently or will assist patient after discharge: MILTON RAMSEY, MOTHER, * Verbal permission to speak to the caregivers and representatives has been obtained from the patient. Yes * Community resources currently utilized None * Additional services required to return to the preadmission environment? No * Can the patient safely return to the preadmission environment? Yes * Has this patient been hospitalized within the prior 30 days at any hospital? No Coverage Notice Reviewer: [id number] Tommy Maravilla Notice Issued Date-Time: 10/31/2018 9:50 Notice Type: IM Discharge Notice Notice Delivered To: Patient Relationship to Patient: Dental Technician Instructor Name: Delivery Method: HAND - Hand Delivered Brintey Days: Prior Verbal Notification: Recipient Understood Notice: Yes Recipient Signature: Yes Med Rec Note Co-signed by Attending: Coverage Notice Comment: Last DP export: 10/31/18 11:25 a Patient Name: DARLENE VILLATORO Page [phone] at 1235 All edits/amendments must be made on the electronic document DICTATION DATE: 10/31/18 1235 OPTOMETRIC AIDE: IGGY 10/31/18 1235 RPT#: [id number] DC DATE: STATUS: ADM IN [facility] [address] [place] [address] END OF REPORT
--- NOTE | 2018-10-31 14:00 | NUR ---
PT TAKEN TO DIALYSIS VIA WC.
--- NOTE | 2018-10-31 16:55 | NUR ---
AGREE WITH FRONT OFFICE ASSOCIATE ASSESSMENT
--- NOTE | 2018-10-31 17:32 | NUR ---
PT RETURNED FROM DIALYSIS. PT DISCHARGE TEACHING DONE. PT HAS NO FURTHER QUESTIONS. PATIENT DISCHARGE INSTRUCTIONS GIVEN TO PT. CHART COPY SIGNED. RN TO DC RIGHT IJ CENTRAL LINE.
--- NOTE | 2018-10-31 17:32 | NUR ---
PT RETURNED FROM DIALYSIS. PT DISCHARGE TEACHING DONE. PT HAS NO FURTHER QUESTIONS. PATIENT DISCHARGE INSTRUCTIONS GIVEN TO PT. CHART COPY SIGNED.
--- NOTE | 2018-10-31 17:58 | NUR ---
GILES RN DC'D RIGHT EJ 20G IV WITH CATH INTACT.
--- NOTE | 2018-10-31 17:59 | NUR ---
PT STATES HIS RIDE IS ON THE WAY. I STATED TO HIM TO PRESS CALL LIGHT WHEN THEY GET HERE AND WE WILL GET A WC AND TAKE HIM DOWN. PT VERBALIZED UNDERSTANDING.
--- NOTE | 2018-10-31 18:24 | NUR ---
Dialsyis Coordinator: [facility]AL[facility] MWF @ 6:00am. ALYX PEÑA.
--- NOTE | 2018-10-31 18:34 | NUR ---
PT TAKEN DOWN VIA WC BY SPEEDER TENDER ACCOMPANIED BY FRIEND.
--- NOTE | 2018-11-03 06:24 | DS ---
PATIENT:DARLENE JEAN :[birth year] MEDICAL RECORD: [id number] DISCHARGE SUMMARY ADMISSION DATE: 10/23/18 DISCHARGE DATE: 10/31/18 HISTORY OF PRESENT ILLNESS: Mr. Jean is a 48-year-old black male with end-stage renal disease and dialyzes chronically in [place]. He is a nonsmoker, presented to the Emergency Room with cough and fever, found to have a right middle lobe pneumonia and admitted for the above. HOSPITAL COURSE: His flu screen was negative. He was begun on antibiotic therapy and received a full course of antibiotic therapy followed by oral therapy. He had a persistent cough as his main issue, but his last chest x-ray and pulmonary exam were normal. He was otherwise stable throughout his hospitalization and his acute dialysis was uneventful. DISCHARGE DIAGNOSES: 1. Acute pneumonia, now improved with only persistent cough. 2. End-stage renal disease. 3. Chronic anemia. 4. History of hypertension. PLAN: The patient will be discharged today. He will continue his renal diet and dialysis in [place]. I will see him on a monthly basis in [place]. DISCHARGE MEDICATIONS: Will be Renvela 2.4 grams t.i.d. with meals, Effexor 50 mg h.s., losartan 50 b.i.d. He will be on Levaquin 250 daily for 5 more days, Nephro-Tiara 1 daily, Sensipar 60 mg daily, Pepcid 40 mg daily, Neurontin 100 mg h.s., baby aspirin 1 daily, amlodipine 5 b.i.d., metoprolol 50 b.i.d. TRANSINT:[id number] Voice Confirmation ID: [id number] DOCUMENT ID: [id number] CIRO CALVO MD at 0624 CC: [id number] DICTATION DATE: 10/31/18 0838 DIE ATTACHER: 10/31/18 0902 DIS IN 10/31/18 [id number] [place] [address]
== END 2018-10-31 18:51 | disposition home or self-care (01) | DRG 193 ==
LOC: D.ER 19:32 → D.M2 22:01 → D.EDHOLD 22:01 → D.M2 22:51 → D.SDCHOLD 10-24 17:34 → D.M2 10-24 17:38
PROVIDERS: Family Medicine; Internal Medicine Nephrology; ADMIT Internal Medicine Nephrology; ATTEND Internal Medicine Nephrology
PROC: 5A1D70Z Performance of Urinary Filtration, Intermittent, Less than 6 Hours Per Day (ICD-10-PCS; principal; 2018-10-24)
DX: J11.08 Influenza due to unidentified influenza virus with specified pneumonia (principal); N18.6 End stage renal disease; I12.0 Hypertensive chronic kidney disease with stage 5 chronic kidney disease or end stage renal disease; E11.22 Type 2 diabetes mellitus with diabetic chronic kidney disease; E11.649 Type 2 diabetes mellitus with hypoglycemia without coma

== ENCOUNTER 2018-11-12 17:43 | Emergency (ER) | payer MEDICARE ==
[~2018-11-12] VITALS: Ht 188 cm; Wt 2.6 kg
[~2018-11-12 17:43] MED LIST changes: +Levaquin PO
[2018-11-12 17:47] VITALS: Ht 188 cm; Wt 2.6 kg
[2018-11-12 18:49] LABS: BASOPHILS 0.7 % (0-2); EOSINOPHILS 3.1 % (0-7); HEMATOCRIT 31.3 % (42.0-54.0); HEMOGLOBIN 9.9 g/dL (13.5-17.5); IMMATURE GRANULOCYTES 0.3 % (0-5); LYMPHOCYTES 26.8 % (15-50); MCH 29.3 pg (26.0-34.0); MCHC 31.6 g/dL (31.0-37.0); MCV 92.6 fL (80.0-100.0); MEAN PLATELET VOLUME 9.1 fL (7.4-10.4); MONOCYTES 12.5 % (2-11); NEUTROPHILS 56.6 % (40-80); PLATELET COUNT 247 10x3/uL (130-400); RBC 3.38 10x6/uL (4.20-6.10); RDW 16.1 % (11.5-14.5)
[2018-11-12 19:09] LABS: ALBUMIN 3.6 g/dL (3.4-5.0); ANION GAP 13.6 mmol/L (8-16); BILIRUBIN - TOTAL 0.59 mg/dL (0.2-1.3); CALCIUM 9.9 mg/dL (8.5-10.1); CARBON DIOXIDE 31.2 mmol/L (21.0-32.0); CREATININE - SERUM 5.8 mg/dL (0.6-1.3); POTASSIUM - SERUM 4.8 mmol/L (3.5-5.1); PROTEIN - SERUM 7.2 g/dL (6.4-8.2)
[2018-11-12 19:18] LABS: MAGNESIUM - SERUM 2.2 mg/dL (1.8-2.4)
[2018-11-12 19:52] VITALS: BP 172/85
== END 2018-11-12 19:52 | disposition home or self-care (01) ==
LOC: D.ER 17:43
PROVIDERS: Emergency Medicine
DX: J20.9 Acute bronchitis, unspecified (principal)

== ENCOUNTER 2019-05-30 16:19 | Inpatient (IN) | payer MEDICARE ==
[~2019-05-30] VITALS: Ht 188 cm; Wt 91.4 kg
[2019-05-30 17:28] LABS: BASOPHILS 0.1 % (0-2); EOSINOPHILS 1.6 % (0-7); HEMATOCRIT 33.5 % (42.0-54.0); HEMOGLOBIN 10.9 g/dL (13.5-17.5); IMMATURE GRANULOCYTES 0.2 % (0-5); LYMPHOCYTES 12.6 % (15-50); MCH 32.7 pg (26.0-34.0); MCHC 32.5 g/dL (31.0-37.0); MCV 100.6 fL (80.0-100.0); MEAN PLATELET VOLUME 9.4 fL (7.4-10.4); MONOCYTES 9.2 % (2-11); NEUTROPHILS 76.3 % (40-80); PLATELET COUNT 213 10x3/uL (130-400); RBC 3.33 10x6/uL (4.20-6.10); RDW 14.7 % (11.5-14.5); WBC 8.7 10x3/uL (4.8-10.8)
[2019-05-30 17:37] VITALS: BP 176/80
[2019-05-30 17:38] LABS: ALBUMIN 3.8 g/dL (3.4-5.0); ALKALINE PHOSPHATASE 87 U/L (46-116); ALT (SGPT) 12 U/L (10-68); BILIRUBIN - TOTAL 0.39 mg/dL (0.2-1.3); CALC OSMOLALITY 288 mosm/kg (275-300); CALCIUM 9.5 mg/dL (8.5-10.1); CARBON DIOXIDE 29.6 mmol/L (21.0-32.0); CHLORIDE - SERUM 102 mmol/L (98-107); CREATININE - SERUM 7.6 mg/dL (0.6-1.3); GLUCOSE 91 mg/dL (74-106); POTASSIUM - SERUM 4.6 mmol/L (3.5-5.1); PROTEIN - SERUM 7.7 g/dL (6.4-8.2); SODIUM 141 mmol/L (136-145); UREA NITROGEN 35 mg/dL (7-18); eGFR NON AFRICAN AMERICAN 8 mL/min (90-120)
[2019-05-30 17:55] LABS: CKMB 1.6 U/L (0.0-3.6); CREATINE KINASE 124 UL (21-232); MAGNESIUM - SERUM 2.5 mg/dL (1.8-2.4)
[2019-05-30 17:59] LABS: APTT 28.2 SECONDS (22.8-39.4); INR 1.02 (0.85-1.17); PROTIME 12.9 SECONDS (11.6-15.0)
[2019-05-30 18:00] LABS: TROPONIN-I 0.184 ng/mL (0.000-0.060)
--- NOTE | 2019-05-30 18:02 | NUR ---
DAVID ELEVATED 0.184, DR. TAYLOR NOTIFIED.
--- NOTE | 2019-05-30 19:11 | NUR ---
PT PROVIDED SANDWICH, GRAPES, AND MILK. PT SITTING UPRIGHT ON SIDE OF BED. PT FAMILY AT BEDSIDE.
--- NOTE | 2019-05-30 19:43 | NUR ---
PT CONSUMED 100% OF DINNER. PT RESTING ON BED. PT SPOUSE AT BEDSIDE. NO S/S OF ACUTE DISTRESS NOTED. LIGHTS LOW FOR PT COMFORT.
[2019-05-30 19:44] VITALS: BP 158/77
--- NOTE | 2019-05-30 20:23 | NUR ---
REPORT RECIEVED FROM ER.
--- NOTE | 2019-05-30 21:06 | NUR ---
ADMIT TO ROOM 2119 FROM ER. ALERT/ORIENTED. ACCOMPANIED BY FAMILY X 2. ADMISSION ASSESSMENT AND HISTORY COMPLETED. HOME MEDS REVIEWED. PT STILL HAVING CHEST PAIN 02/25. TIGHTNESS ACROSS HIS CHEST WITH SHARP "PINGS" ON THE RIGHT SIDE. PAGE TO RENAL ANSWERING SERVICE. SPECIFICALLY REQUESTED FOR YUSUF BROOKS TO CALL UNIT. RECIEVED RETURN CALL FROM DR ARAMBULA. REPORTED ABOVE CHEST PAIN AND REQUEST FOR PAIN MEDS. ORDERS RECIEVED AND MD STATES TO MAKE SURE THAT VIOLIN MECHANIC IS CALLED FIRST FOR ANY NEEDS. INSTRUCTED THAT ANSWERING SERVICE WAS SPECIFICALLY TOLD TO CONTACT YUSUF/FLORENCIO BROOKS AND THE DECISION TO PAGE MD WAS FROM THE ANSWERING SERVICE.
--- NOTE | 2019-05-30 21:47 | NUR ---
ADMINISTRATION OF NORCO X 1 AND NITRO X 1 FOR CHEST PAIN 02/25. PT BEGINNING TO FEEL SOME CHEST PAIN RELIEF AFTER A FEW MINUTES. WILL MONITOR.
--- NOTE | 2019-05-30 22:25 | NUR ---
PT STATES FEELING RELIEF TO CHEST PAIN. WILL MONITOR. SR/65 PER TELEMETRY.
[2019-05-31] VITALS (7 sets, daily range): BP systolic 133–179; BP diastolic 62–91; BMI 26.6
--- NOTE | 2019-05-31 00:16 | NUR ---
PT STATES HE WAS AWAKENED BY SHARP CHEST PAIN. MEDICATED WITH NITRO 0.4MG SL. LAST TROPONIN WAS TRENDING DOWN. SR PER TELEMETRY. MONITOR.
--- NOTE | 2019-05-31 01:38 | NUR ---
PT AWAKENED WITH SEVERE CHEST PAIN AT 0110. ASSESSED. PROVIDED NITRO X 3 WHICH ONLY PROVIDED MINIMAL RELIEF WITH THE 3RD TABLET S/L. EKG PERFORMED. VS MONITORED. SR PER TELEMETRY. PT DESCRIBES A TIGHTNESS WITH SHARP STABBING FEELINGS ON THE RIGHT SIDE OF HIS CHEST. PAGE TO DR KIM AND REPORTED CURRENT TROPONIN OF 0.126 AND CHEST PAIN UNRELIEVED BY NITRO X 3. NEW ORDERS RECIEVED. ADMINISTERED MORPHINE 4MG SIVP. WILL MONITOR. CPOC. SR PER TELEMETRY. NPO UNTIL SEEN BY BACK UP SCAN COORDINATOR.
[2019-05-31 03:14] LABS: BASOPHILS 0.1 % (0-2); EOSINOPHILS 1.2 % (0-7); HEMATOCRIT 29.9 % (42.0-54.0); HEMOGLOBIN 9.8 g/dL (13.5-17.5); IMMATURE GRANULOCYTES 0.1 % (0-5); LYMPHOCYTES 11.5 % (15-50); MCH 33.1 pg (26.0-34.0); MCHC 32.8 g/dL (31.0-37.0); MEAN PLATELET VOLUME 9.8 fL (7.4-10.4); MONOCYTES 12.6 % (2-11); NEUTROPHILS 74.5 % (40-80); PLATELET COUNT 199 10x3/uL (130-400); RBC 2.96 10x6/uL (4.20-6.10); RDW 14.8 % (11.5-14.5); WBC 6.9 10x3/uL (4.8-10.8)
[2019-05-31 03:42] LABS: ANION GAP 12.7 mmol/L (8-16); CALCIUM 9.1 mg/dL (8.5-10.1); CARBON DIOXIDE 30.8 mmol/L (21.0-32.0); CREATININE - SERUM 8.5 mg/dL (0.6-1.3); MAGNESIUM - SERUM 2.6 mg/dL (1.8-2.4); PHOSPHOROUS 7.2 mg/dL (2.5-4.9); POTASSIUM - SERUM 4.5 mmol/L (3.5-5.1)
[2019-05-31 03:46] LABS: TROPONIN-I 0.144 ng/mL (0.000-0.060)
--- NOTE | 2019-05-31 06:30 | NUR ---
PT HAS RESTED WITH NO DISTRESS SINCE RECIEVING IV MORPHINE. SR/65 PER TELEMETRY. NPO UNTIL SEEN BY SHAGGER. CPOC AND REPORT TO ONCOMING NURSE.
--- NOTE | 2019-05-31 07:30 | NUR ---
RECIEVED REPORT. RESTING IN BED WITH EYES CLOSED. RESPIRATIONS NONLABORED. NO SIGNS OF DISTRESS. CONTINUE PLAN OF CARE AND SAFETY PRECAUTIONS.
--- NOTE | 2019-05-31 16:48 | NUR ---
ALERT AND ORIENTED X4. LAYING IN BED. FAMILY AT BEDSIDE. SINUS 67 ON TELEMETRY. DENIES ANY NEEDS AT THIS TIME. CONTINUE PLAN OF CARE AND SAFETY PRECAUTIONS.
--- NOTE | 2019-05-31 19:10 | NUR ---
RECEIVED REPORT, WILL ASSUME CARE OF PT, DENIES ANY NEEDS AT THIS TIME, BED IS LOW, SRX2, CALL LIGHT IN REACH, WILL COONTINUE PLAN OF CARE
[2019-06-01] VITALS: BP 144/69
--- NOTE | 2019-06-01 01:15 | NUR ---
I have reviewed this patient and I concur with the Shift Assessment completed by the Licensed Practical Nurse today this shift.
[2019-06-01 04:00] VITALS: BP 140/75
--- NOTE | 2019-06-01 07:49 | NUR ---
RECIEVE REPORT. ALERT AND ORIENTED X4. RESTING IN BED. DENIES ANY NEEDS AT THIS TIME. CONTINUE PLAN OF CARE AND SAFETY PRECAUTIONS.
[2019-06-01 09:27] VITALS: BP 184/90
[2019-06-01 13:22] VITALS: Ht 188 cm; Wt 91.4 kg
[2019-06-01 17:49] VITALS: BP 161/77
--- NOTE | 2019-06-01 19:15 | NUR ---
PATIENT IS AAO. PATIENT IS WATCHING TV, DENIES ANY PAIN OR CONCERNS AT THIS TIME. BED IN THE LOWEST POSITION AND CALL LIGHT WITHIN REACH.
[2019-06-01 20:00] VITALS: BP 131/60
[2019-06-02] VITALS: BP 134/78
[2019-06-02 04:00] VITALS: BP 148/71
[2019-06-02 05:48] LABS: BASOPHILS 0.1 % (0-2); EOSINOPHILS 0.7 % (0-7); HEMATOCRIT 31.1 % (42.0-54.0); HEMOGLOBIN 10.4 g/dL (13.5-17.5); IMMATURE GRANULOCYTES 0.2 % (0-5); LYMPHOCYTES 12.2 % (15-50); MCH 32.7 pg (26.0-34.0); MCHC 33.4 g/dL (31.0-37.0); MCV 97.8 fL (80.0-100.0); MEAN PLATELET VOLUME 9.6 fL (7.4-10.4); MONOCYTES 7.6 % (2-11); NEUTROPHILS 79.2 % (40-80); PLATELET COUNT 224 10x3/uL (130-400); RBC 3.18 10x6/uL (4.20-6.10); RDW 14.3 % (11.5-14.5); WBC 8.1 10x3/uL (4.8-10.8)
[2019-06-02 06:09] LABS: ANION GAP 16.8 mmol/L (8-16); CALCIUM 9.6 mg/dL (8.5-10.1); CARBON DIOXIDE 28.6 mmol/L (21.0-32.0); CREATININE - SERUM 8.9 mg/dL (0.6-1.3); PHOSPHOROUS 6.6 mg/dL (2.5-4.9); POTASSIUM - SERUM 4.4 mmol/L (3.5-5.1)
--- NOTE | 2019-06-02 07:30 | NUR ---
RECIEVED REPORT. RESTING IN BED WITH EYES CLOSED. RESPIRATIONS EVEN AND REGULAR. SINUS RYTHM 80 ON TELEMETRY. NO SIGNS OF DISTRESS. CONTINUE PLAN OF CARE AND SAFETY PRECAUTIONS.
--- NOTE | 2019-06-02 09:03 | NUR ---
I CALLED [facility] FOR DISCHARGE ORDERS AND MED LIST PER DR PERKINS TO CALL HER. SHE STATES THAT SHE WILL TAKE CARE OF IT.
[2019-06-02] MEDS ORDERED: MOBIC7.5 MG PO (09:20)
[2019-06-02 09:29] VITALS: BP 154/82
--- NOTE | 2019-06-02 10:13 | MORECARE ---
CASE MANAGEMENT DISCHARGE SUMMARY PATIENT: DARLENE VILLATORO UNIT: [id number] ADM DATE: 05/30/19 AGE: 49 : 74 SEX: M ROOM/BED: D.2120 AUTHOR: CINDY ROMERO PHYSICIAN: REFERRING PHYSICIAN: PEPITO ARAMBULA MD DATE OF SERVICE: 06/02/19 Discharge Plan Patient Name: DARLENE VILLATORO Facility: [facility]:[place] : 1970 Planned Disposition: Home Anticipated Discharge Date: 06/02/19 Discharge Date: Expected LOS: 3 Initial Reviewer: [email or web address] Initial Review Date: 06/02/2019 Generated: 06/02/19 11:13 am DCPIA - Discharge Planning Initial Assessment Updated by BONI: Gera Maravilla on 06/02/19 10:11 am * Is the patient Alert and Oriented? Yes * How many steps to enter\exit or inside your home? NONE * PCP DR. CALVO * Pharmacy [facility] IN [place] * Preadmission Environment Home with Family * ADLs Independent * Equipment Glucometer * Other Equipment NO MEDICAL EQUIPMEMENT PROVIDER PREFERENCE * List name and contact numbers for known caregivers / representatives who currently or will assist patient after discharge: JAMES VILLATORO, MOTHER, * Verbal permission to speak to the caregivers and representatives has been obtained from the patient. N/A * Community resources currently utilized Other * Please name any agencies selected above. [facility], [facility] [place], MWF, 1100, PT OR FAMILY DRIVES. * Additional services required to return to the preadmission environment? No * Can the patient safely return to the preadmission environment? Yes * Has this patient been hospitalized within the prior 30 days at any hospital? No Coverage Notice Reviewer: [id number] - Gera Maravilal Notice Issued Date-Time: 06/02/2019 8:50 Notice Type: IM Discharge Notice Notice Delivered To: Patient Relationship to Patient: Trackman Name: Delivery Method: HAND - Hand Delivered Britney Days: Prior Verbal Notification: Recipient Understood Notice: Yes Recipient Signature: Yes Med Rec Note Co-signed by Attending: Coverage Notice Comment: Patient Name: DARLENE VILLATORO Page [id number] at 1013 All edits/amendments must be made on the electronic document DICTATION DATE: 06/02/19 1013 APRON WORKER: IGGY 06/02/19 1013 RPT#: [id number] DC DATE: STATUS: ADM IN [facility] [address] [place] [address] END OF REPORT
--- NOTE | 2019-06-02 10:21 | MORECARE ---
CASE MANAGEMENT DISCHARGE SUMMARY PATIENT: DARLENE VILLATORO UNIT: [id number] ADM DATE: 05/30/19 AGE: 49 : 74 SEX: M ROOM/BED: D.5797 AUTHOR: HEATHER,DOC PHYSICIAN: REFERRING PHYSICIAN: PEPITO ARAMBULA MD DATE OF SERVICE: 06/02/19 Discharge Plan Patient Name: DARLENE VILLATORO Facility: [facility]:[place] : 1970 Planned Disposition: Home Anticipated Discharge Date: 06/02/19 Discharge Date: Expected LOS: 3 Initial Reviewer: [id number] Initial Review Date: 06/02/2019 Generated: 06/02/19 11:20 am Comments DCP- Discharge Planning Updated by BONI: Gera Maravilla on 06/02/19 9:[address] Patient Name: DARLENE VILLATORO Admission Status: ER Accout number: [id number] Admission Date: 05-30-2019 : 1970 Admission Diagnosis: Attending: PEPITO ARAMBULA Current LOS: 3 Anticipated DC Date: 06-02-2019 Planned Disposition: Home Primary Insurance: MEDICARE A & B Discharge Planning Comments: CM RECEIVED DISCHARGE ORDERS, MET WITH PT IN ROOM TO DISCUSS DISCHARGE PLANNING AND NEEDS. CM NOTIFIED PT OF PLANNED DISCHARGE TODAY. PT REPORTS LIVING AT HOME INDEPENDENTLY WITH HIS PARENTS. PT HAS A GLUCOMETER WITH NO MEDICAL EQUIPMENT PROVIIDER. PT HAS NO OUTSIDE SERVICES ASSISTING IN THE HOME PT GOES TO OUTPATIENT DIALYSIS ON MWF, 1100AM SCHEDULE, HE OR FAMILY DRIVES. CM DISCUSSED AVAILABILITY OF HOME HEALTH, REHAB SERVICES AND MEDICAL EQUIPMENT. PT DENIES DISCHARGE NEEDS, REPORTS HIS PARENTS WILL PICK HIM UP FOR DISCHARGE HOME. IMPORTANT MESSAGE FROM MEDICARE PROVIDED AND EXPLAINED. PT REPORTS NOT FEELING WELL RIGHT NOW. CM NOTIFED BEDSIDE NURSE. LABORER TANBARK NURSE NOTIFIED. Strapping Machine Tender: Gera Maravilla DCPIA - Discharge Planning Initial Assessment Updated by [email or web address]: Gera Maravilla on 06/02/19 10:11 am * Is the patient Alert and Oriented? Yes * How many steps to enter\exit or inside your home? NONE * PCP DR. CALVO * Pharmacy [facility] IN [place] * Preadmission Environment Home with Family * ADLs Independent * Equipment Glucometer * Other Equipment NO MEDICAL EQUIPMEMENT PROVIDER PREFERENCE * List name and contact numbers for known caregivers / representatives who currently or will assist patient after discharge: JAMES VILLATORO, MOTHER, * Verbal permission to speak to the caregivers and representatives has been obtained from the patient. N/A * Community resources currently utilized Other * Please name any agencies selected above. OUTPATIENT DIALYSIS, [facility] IN [place], MWF, 1100, PT OR FAMILY DRIVES. * Additional services required to return to the preadmission environment? No * Can the patient safely return to the preadmission environment? Yes * Has this patient been hospitalized within the prior 30 days at any hospital? No Coverage Notice Reviewer: [id number] Tommy Maravilla Notice Issued Date-Time: 06/02/2019 8:50 Notice Type: IM Discharge Notice Notice Delivered To: Patient Relationship to Patient: Riprap Placing Supervisor Name: Delivery Method: HAND - Hand Delivered Britney Days: Prior Verbal Notification: Recipient Understood Notice: Yes Recipient Signature: Yes Med Rec Note Co-signed by Attending: Coverage Notice Comment: Last DP export: 06/02/19 9:13 Patient Name: DARLENE VILLATORO Page [id number] at 1021 All edits/amendments must be made on the electronic document DICTATION DATE: 06/02/19 1020 DWARF TREE GROWER: IGGY 06/02/19 1020 RPT#: [id number] DC DATE: STATUS: ADM IN [facility] [address] [place] [address] END OF REPORT
[2019-06-02 12:13] VITALS: BP 122/59
[2019-06-02 16:46] VITALS: BP 129/60
--- NOTE | 2019-06-02 18:16 | NUR ---
ALERT AND ORIENTED X4. SITTING UP IN BED. REPORTS FEELING BETTER. AFEBRIAL. DENIES ANY NEEDS AT THIS TIME. CONTINUE PLAN OF CARE AND SAFETY PRECAUTIONS.
--- NOTE | 2019-06-02 19:16 | NUR ---
PATIENT IS AAO. PATIENT IS VISITING WITH FAMILY. DENIES ANY PAIN OR CONCERNS AT THIS TIME. BED IN THE LOWEST POSITION AND CALL LIGHT WITH IN REACH.
[2019-06-02 20:00] VITALS: BP 145/65
[2019-06-03] VITALS: BP 127/67
[2019-06-03 04:00] VITALS: BP 137/59
[2019-06-03 06:09] LABS: BASOPHILS 0.1 % (0-2); EOSINOPHILS 1.4 % (0-7); HEMATOCRIT 29.7 % (42.0-54.0); HEMOGLOBIN 9.8 g/dL (13.5-17.5); IMMATURE GRANULOCYTES 0.1 % (0-5); LYMPHOCYTES 15.6 % (15-50); MCH 32.3 pg (26.0-34.0); MEAN PLATELET VOLUME 10.2 fL (7.4-10.4); MONOCYTES 9.7 % (2-11); NEUTROPHILS 73.1 % (40-80); PLATELET COUNT 212 10x3/uL (130-400); RBC 3.03 10x6/uL (4.20-6.10); RDW 14.4 % (11.5-14.5); WBC 7.2 10x3/uL (4.8-10.8)
[2019-06-03 06:36] LABS: ANION GAP 15.9 mmol/L (8-16); CALCIUM 9.1 mg/dL (8.5-10.1); CARBON DIOXIDE 27.8 mmol/L (21.0-32.0); CREATININE - SERUM 10.9 mg/dL (0.6-1.3); POTASSIUM - SERUM 4.7 mmol/L (3.5-5.1)
--- NOTE | 2019-06-03 08:05 | NUR ---
ASSESSMENT DONE. DENIES NEEDS
[2019-06-03 09:06] VITALS: BP 149/82
--- NOTE | 2019-06-03 10:43 | NUR ---
I have reviewed this patient and I concur with the Shift Assessment completed by the Licensed Practical Nurse today this shift.
--- NOTE | 2019-06-03 17:56 | NUR ---
WITHOUT CHANGES OR DISTRESS NOTED AT THIS TIME. DENIES NEEDS
--- NOTE | 2019-06-03 19:19 | NUR ---
PATIENT IS AAO. PATIENT IS WATCHING TV. DENIES ANY CONCERNS OR PAIN AT THIS TIME. ON ROOM AIR. IV RFA SL, NO REDDNESS OR SWELLING NOTED. BED IN THE LOWEST POSITION AND CALL LIGHT IN REACH.
[2019-06-03 20:00] VITALS: BP 139/64
[2019-06-04] VITALS: BP 133/64
[2019-06-04 04:00] VITALS: BP 135/94
[2019-06-04 06:11] LABS: BASOPHILS 0.2 % (0-2); EOSINOPHILS 3.1 % (0-7); HEMATOCRIT 34.6 % (42.0-54.0); HEMOGLOBIN 11.4 g/dL (13.5-17.5); IMMATURE GRANULOCYTES 0.2 % (0-5); LYMPHOCYTES 20.4 % (15-50); MCH 32.8 pg (26.0-34.0); MCHC 32.9 g/dL (31.0-37.0); MCV 99.4 fL (80.0-100.0); MEAN PLATELET VOLUME 9.8 fL (7.4-10.4); MONOCYTES 12.2 % (2-11); NEUTROPHILS 63.9 % (40-80); PLATELET COUNT 238 10x3/uL (130-400); RBC 3.48 10x6/uL (4.20-6.10); RDW 14.3 % (11.5-14.5); WBC 5.7 10x3/uL (4.8-10.8)
[2019-06-04 08:30] VITALS: BP 149/76
[2019-06-04 12:30] VITALS: BP 140/70
--- NOTE | 2019-06-04 13:40 | NUR ---
Nutrition Follow-up: Sitting up on side of bed eating lunch at time of visit. Good appetite/PO intake. Reports drinking 1 Nepro with each meal. Diet: Renal ADA PO intake: 100% (06/03) Wt: 204# Last BM: 06/04 Labs noted: Glu 98, K+ 4.7, PO4 7.0 Meds noted: Sensipar, Amaryl -Continue current diet as tolerated. -May consider PO4 binder with meals 2/2 hyperphosphatemia. -RD following.
[2019-06-04 16:37] VITALS: BP 134/69
--- NOTE | 2019-06-04 19:35 | NUR ---
ASSESSMENT COMPLETE, PT A&O. SITTING UP ON SIDE OF BED WATCHING TV. IV TO RIGHT ARM SL. AVF NOTED TO LEFT ARM (+,+). PT DENIES PAIN OR NEEDS, BED LOW, CL IN REACH.
[2019-06-04 20:00] VITALS: BP 205/85
[2019-06-05] VITALS: BP 148/73
[2019-06-05 04:00] VITALS: BP 130/62
[2019-06-05 06:04] LABS: BASOPHILS 0.2 % (0-2); EOSINOPHILS 3.1 % (0-7); HEMATOCRIT 30.6 % (42.0-54.0); HEMOGLOBIN 10.3 g/dL (13.5-17.5); IMMATURE GRANULOCYTES 0.2 % (0-5); LYMPHOCYTES 30.6 % (15-50); MCH 32.9 pg (26.0-34.0); MCHC 33.7 g/dL (31.0-37.0); MCV 97.8 fL (80.0-100.0); MEAN PLATELET VOLUME 9.9 fL (7.4-10.4); MONOCYTES 11.4 % (2-11); NEUTROPHILS 54.5 % (40-80); PLATELET COUNT 220 10x3/uL (130-400); RBC 3.13 10x6/uL (4.20-6.10); RDW 14.2 % (11.5-14.5); WBC 4.5 10x3/uL (4.8-10.8)
[2019-06-05 06:36] LABS: ANION GAP 17.8 mmol/L (8-16); CALCIUM 9.3 mg/dL (8.5-10.1); CARBON DIOXIDE 27.3 mmol/L (21.0-32.0); CREATININE - SERUM 11.3 mg/dL (0.6-1.3); POTASSIUM - SERUM 5.1 mmol/L (3.5-5.1)
--- NOTE | 2019-06-05 07:45 | NUR ---
ASSESSMENT DONE. DENIES NEEDS
--- NOTE | 2019-06-05 09:48 | NUR ---
I have reviewed this patient and I concur with the Shift Assessment completed by the Licensed Practical Nurse today this shift.
--- NOTE | 2019-06-05 09:49 | MORECARE ---
CASE MANAGEMENT DISCHARGE SUMMARY PATIENT: DARLENE VILLATORO UNIT: [id number] ADM DATE: 05/30/19 AGE: 49 : 74 SEX: M ROOM/BED: D.3746 AUTHOR: HEATHER,DOC PHYSICIAN: REFERRING PHYSICIAN: PEPITO ARAMBULA MD DATE OF SERVICE: 06/05/19 Discharge Plan Patient Name: DARLENE VILLATORO Facility: [facility]:[place] : 1970 Planned Disposition: Home Anticipated Discharge Date: 06/05/19 Discharge Date: Expected LOS: 6 Initial Reviewer: [email or web address] Initial Review Date: 06/02/2019 Generated: 06/05/19 10:48 am Comments DCP- Discharge Planning Updated by [id number]: Gera Maravilla on 06/05/19 8:[address] Patient Name: DARLENE VILLATORO Encounter No: [id number] : 1970 Primary Insurance: MEDICARE A & B Anticipated DC Date: 06-05-2019 Planned Disposition: Home DCP follow-up note: CM RECEIVED ORDER FOR DISCHARGE PLANNING FOR TODAY. CM MET WITH PT IN ROOM TO DISCUSS DISCHARGE NEEDS AND PLANNING. CM DISCUSSED AVAILABILITY OF HOME HEALTH, REHAB SERVICES AND MEDICAL EQUIPMENT. PT DENIES DISCHARGE NEEDS. FAMILY TO TRANSPORT HOME AT DISCHARGE AFTER DIALYSIS TODAY. IMPORTANT MESSAGE FROM MEDICARE PROVIDED AND EXPLAINED. KYM Hanson DCP- Discharge Planning Updated by [id number]: Gera Maravilla on 06/02/19 9:[address] Patient Name: DARLENE VILLATORO Admission Status: ER Accout number: [id number] Admission Date: 05-30-2019 : 1970 Admission Diagnosis: Attending: PEPITO ARAMBULA Current LOS: 3 Anticipated DC Date: 06-02-2019 Planned Disposition: Home Primary Insurance: MEDICARE A & B Discharge Planning Comments: CM RECEIVED DISCHARGE ORDERS, MET WITH PT IN ROOM TO DISCUSS DISCHARGE PLANNING AND NEEDS. CM NOTIFIED PT OF PLANNED DISCHARGE TODAY. PT REPORTS LIVING AT HOME INDEPENDENTLY WITH HIS PARENTS. PT HAS A GLUCOMETER WITH NO MEDICAL EQUIPMENT PROVIIDER. PT HAS NO OUTSIDE SERVICES ASSISTING IN THE HOME PT GOES TO OUTPATIENT DIALYSIS ON MWF, 1100AM SCHEDULE, HE OR FAMILY DRIVES. CM DISCUSSED AVAILABILITY OF HOME HEALTH, REHAB SERVICES AND MEDICAL EQUIPMENT. PT DENIES DISCHARGE NEEDS, REPORTS HIS PARENTS WILL PICK HIM UP FOR DISCHARGE HOME. IMPORTANT MESSAGE FROM MEDICARE PROVIDED AND EXPLAINED. PT REPORTS NOT FEELING WELL RIGHT NOW. CM NOTIFED BEDSIDE NURSE. FUEL EFFICIENT AUTOMOBILE DESIGNER NURSE NOTIFIED. Gun Stocker: Gera Maravilla DCPIA - Discharge Planning Initial Assessment Updated by BONI: Gera Maravilla on 06/02/19 10:11 am * Is the patient Alert and Oriented? Yes * How many steps to enter\exit or inside your home? NONE * PCP DR. CALVO * Pharmacy [facility] IN [place] * Preadmission Environment Home with Family * ADLs Independent * Equipment Glucometer * Other Equipment NO MEDICAL EQUIPMEMENT PROVIDER PREFERENCE * List name and contact numbers for known caregivers / representatives who currently or will assist patient after discharge: JAMES VILLATORO, MOTHER, * Verbal permission to speak to the caregivers and representatives has been obtained from the patient. N/A * Community resources currently utilized Other * Please name any agencies selected above. OUTPATIENT DIALYSIS, [facility] [place], MWF, 1100, PT OR FAMILY DRIVES. * Additional services required to return to the preadmission environment? No * Can the patient safely return to the preadmission environment? Yes * Has this patient been hospitalized within the prior 30 days at any hospital? No Coverage Notice Reviewer: [id number] Tommy Maravilla Notice Issued Date-Time: 06/02/2019 8:50 Notice Type: IM Discharge Notice Notice Delivered To: Patient Relationship to Patient: Nail Cutter Name: Delivery Method: HAND - Hand Delivered Britney Days: Prior Verbal Notification: Recipient Understood Notice: Yes Recipient Signature: Yes Med Rec Note Co-signed by Attending: Coverage Notice Comment: Reviewer: [email or web address] Tommy Maravilla Notice Issued Date-Time: 06/05/2019 8:00 Notice Type: IM Discharge Notice Notice Delivered To: Patient Relationship to Patient: Nail Cutter Name: Delivery Method: HAND - Hand Delivered Britney Days: Prior Verbal Notification: Recipient Understood Notice: Yes Recipient Signature: Yes Med Rec Note Co-signed by Attending: Coverage Notice Comment: Last DP export: 06/02/19 9:21 Patient Name: DARLENE VILLATORO Page [phone] at 0949 All edits/amendments must be made on the electronic document DICTATION DATE: 06/05/19947 CONSULTING DATABASE ADMINISTRATOR: DM 06/05/19947 RPT#: [id number] DC DATE: STATUS: ADM IN [facility] [address] [place] [address] END OF REPORT
[2019-06-05 09:59] VITALS: BP 149/76
[2019-06-05] MEDS ORDERED: ZITHROMAX250 MG PO (10:32)
--- NOTE | 2019-06-05 11:05 | NUR ---
I SPENT 30 ON THE PHONE ON HOLD WHILE THE PARMACIST WAS GIVING FLU SHOT PER THE TECH AT [facility] IN [place]. MOBIC [address] [facility] NO REFILLS. #60 TAKE ONE PILL BID. SPOKE WITH BIB, PHARMACIST
--- NOTE | 2019-06-05 17:00 | NUR ---
DC GIVEN TO PT
--- NOTE | 2019-06-05 17:22 | NUR ---
DC HOME PER PERSONAL CAR
--- NOTE | 2019-06-08 07:13 | DS ---
PATIENT:DARLENE JEAN :[birth year] MEDICAL RECORD: [id number] DISCHARGE SUMMARY ADMISSION DATE: 05/30/19 DISCHARGE DATE: 06/05/19 HISTORY OF PRESENT ILLNESS: Mr. Jean is a 49-year-old black male with end-stage renal disease, dialyzing in [place] that I see on a monthly basis. He has been stable with no recent hospitalizations. He awakened with right-sided sharp chest pain and after persistence of this, came to the Emergency Room and was admitted for a possible cardiac-related chest pain. HOSPITAL COURSE: The patient's pain was definitely pleuritic in nature with some costochondral component. He did not have any pericardial or pleural rubs. Seen by cardiology, who agreed that this was more pleuritic chest pain. His echocardiogram did not reveal any pericardial effusion, and he was given nonsteroidal inflammatory therapy and steroids and his pain resolved; however, on day 2 of his hospitalization, he had a temperature spike. Chest x-ray revealed an early infiltrate. He was placed on antibiotic therapy and promptly defervesced, and with these interventions, his chest pain resolved. At the time of discharge, he was switched to oral antibiotics and was otherwise back to baseline. Underwent acute dialysis without difficulties and his fever did not recur. His last white count was under 5000. DISCHARGE DIAGNOSES: 1. Pneumonia with pleurisy. 2. Chest pain related to #1, probable noncardiac. 3. End-stage renal disease, chronic dialysis. 4. Anemia. 5. Hypertension. PLAN: The patient will be discharged today. He will resume his renal diet. He will be in [facility] [place] [facility] on Saturday where I will round on him. DISCHARGE MEDICATIONS: He will resume his Epogen as an outpatient. He will be on Mobic 7.5 mg daily, Sensipar 60 mg daily, Effexor 75 mg at bedtime, glimepiride 1 mg daily, Norvasc 5 mg b.i.d., Apresoline 50 t.i.d., Neurontin 100 mg at bedtime, Pepcid 40 mg daily, metoprolol 50 twice a day, Cozaar 100 b.i.d. TRANSINT:[id number] Voice Confirmation ID: [id number] DOCUMENT ID: [id number] cc: [facility] CIRO CALVO MD at 0713 CC: [id number] DICTATION DATE: 06/05/19 0641 PARCEL CARRIER: 06/05/19 0704 DIS IN 06/05/19 [facility] [address] [facility] [place] [address]
== END 2019-06-05 17:23 | disposition home or self-care (01) | DRG 193 ==
LOC: D.ER 16:19 → D.M2 19:08
PROVIDERS: Family Medicine; Internal Medicine Nephrology; ADMIT Internal Medicine; ATTEND Internal Medicine
PROC: 5A1D70Z Performance of Urinary Filtration, Intermittent, Less than 6 Hours Per Day (ICD-10-PCS; principal; 2019-06-01)
DX: J18.9 Pneumonia, unspecified organism (principal); N18.6 End stage renal disease; I12.0 Hypertensive chronic kidney disease with stage 5 chronic kidney disease or end stage renal disease; E11.22 Type 2 diabetes mellitus with diabetic chronic kidney disease; E11.65 Type 2 diabetes mellitus with hyperglycemia; I25.10 Atherosclerotic heart disease of native coronary artery without angina pectoris; D63.1 Anemia in chronic kidney disease

== ENCOUNTER 2019-07-11 17:17 | Inpatient (IN) | payer MEDICARE ==
[~2019-07-11] VITALS: Ht 188 cm; Wt 80.6 kg
--- NOTE | ~2019-07-11 | HEMODYNAMI ---
PATIENT:DARLENE VILLATORO MEDICAL RECORD: [id number] : 74 LOCATION:[facility] D.2301 ADMISSION DATE: 07/11/19 Generatedon:07/14/201914:59 Patient name: DARLENE VILLATORO Patient #: [id number] SSN: : 1970 Date of study: 07/14/2019 Page: Of Hemodynamic Procedure Report Patient Data Patient Demographics Procedure consent was obtained First Name: DARLENE Gender: Male Last Name: SHAUNA : 1970 Middle Initial: A Age: 49 year(s) Patient #: [id number] Race: Black Additional ID: [id number] Contact details [address]: [address] [place] [address] State: [place] City: [place] Zip code: [address] Past Medical History History of disease Date Diagnosis Comments CAD Allergies Allergen Reaction Date Comments Reported Other allergy 05/07/2017 BUMEX, LISINOPRIL Admission Admission Data Admission Date: 07/11/2019 Admission Time: 20:14 Room #: D.2301 Height (in.): 74 BSA: 2.04 (m2) Height (cm.): 187.96 BMI: 22.21 (kg/m2) Weight (lbs.): 173 Weight (kg.): 78.47 Lab Results Lab Result Date: 07/14/2019 Lab Result Time: 0:00 Biochemistry Name Units Result Min Max BUN mg/dl 76 --(----)-* 7 18 CK-MB ng/ml 0.8 --(*---)-- 0 3.6 Creatinine mg/dl 11.1 --(----)-* 0.6 1.3 Troponin l ng/ml 5.276 --(----)-* 0 0.06 CBC Name Units Result Min Max Hemoglobin g/dl 9.9 *-(----)-- 13.5 17.5 Procedure Procedure Types Cath Procedure Diagnostic Procedure LHC LHC w/Coronaries Procedure Description Procedure Date Procedure Date: 07/14/2019 Procedure Start Time: 14:50 Procedure End Time: 14:59 Procedure Staff Name Function Chris Saenz MD Performing Physician Brent Simmons RT Monitor Melita Asencio RN Nurse Joana Martinez RT Scrub Procedure Data Cath Procedure Fluoroscopy Diagnostic fluoroscopy Total fluoroscopy Time: 1.1 time: 1.1 min min Diagnostic fluoroscopy Total fluoroscopy dose: 571 dose: 571 mGy mGy Contrast Material Contrast Material Type Amount (ml) Isovue 300 61 Entry Location Entry Primary Successful Side Size Upsize Upsize Entry Closure Succes sful Closure Location (Fr) 1 (Fr) 2 (Fr) Remarks Device Remarks Femoral Right 5 Fr Exoseal artery Estimated blood loss: 10 ml Diagnostic catheters Device Type Used For End Catheter Placement MULTIPACK JL 4.0 5Fr Procedure catheter MULTIPACK 3DRC 5Fr Procedure catheter MULTIPACK Pigtail 5 Fr Procedure catheter Procedure Complications No complications Procedure Medications Medication Administration Route Dosage 0.9% NaCl I.V. 100 ml/hr Oxygen 8 l/min Lidocaine 2% added to field 20 Heparin Flush Bag added to field 2 bags (1000units/500ml NS) Versed I.V. 2 mg Fentanyl I.V. 50 mcg Hemodynamics Rest BSA: 2.04 (m2) HGB: 9.9 (g/dl) O2 Consumption: Estimated: 254.88 (ml/min) O2 Con sumption indexed: Estimated:124.94 (ml/min/m) Heart Rate: 82 (bpm) Pressure Samples Time Site Value (mmHg) Purpose Heart Use Rate(bpm) 14:55 LV 100/1,10 Snapshot 78 14:55 AO 99/40(66) Pullback 77 14:55 LV 86/20,17 Pullback 77 Gradients Valve Time Site 1 Site 2 Mean SEP/DFP Peak To Heart Use (mmHg) (sec/min) Peak Rate (mmHg) (bpm) Aortic 14:55 LV AO 0 12 0 77 86/20,17 99/40(66) Calculations Valve P-P Mean Valve Index Valve Source Name Gradient Area Flow (cm2) Aortic 0 0 0 0 Snapshots Pre Cath Intra NCS Post Cath Vital Signs Time Heart Resp SPO2 etCO2 NIBP (mmHg) Rhythm Pain Sedation Rate (ipm) (%) (mmHg) Status Level (bpm) 14:43:04 82 19 100 0 135/77(102) NSR 0 (11) 10(A) , No pain 14:47:24 80 25 100 0 120/64(90) NSR 0 (11) 10(A) , No pain 14:51:36 80 19 100 0 118/68(90) NSR 0 (11) 9(A) , No pain 14:55:48 77 19 100 0 125/66(91) NSR 0 (11) 10(A) , No pain Medications Time Medication Route Dose Verified Delivered Reason Notes Effe ctiveness by by 14:42:03 0.9% NaCl I.V. 100 Chris Melita used for ml/hr [facility] Asencio procedure MD WAYNE 14:42:21 Oxygen HFNC 8 Chris Melita used for l/min [facility] As[facility] procedure MD WAYNE 14:42:27 Lidocaine 2% added 20ml Chris Chris for local to vial [facility] anesthetic field MD SILVA 14:42:32 Heparin Flush added 2 Chris Chris used for Bag to bags [facility] procedure (1000units/500ml field MD SILVA NS) 14:47:11 Versed I.V. 2 mg Chris Melita for [facility] Asencio sedation MD WAYNE 14:47:16 Fentanyl I.V. 50 Chris Melita for mcg [facility] Jos[facility] Asencio sedation MD WAYNEaccount support associate Log Time Note 14:00:37 Melita Asencio RN sent for patient. Start room use. 14:11:38 Time tracking: Regular hours (M-F 7:00 - 5:00) 14:11:42 Plan of Care:Hemodynamics will remain stable., Cardiac rhythm will remain stable., Comfort level will be maintained., Respiratory function will remain adequate., Patient/ family verbilizes understanding of procedure., Procedure tolerated without complication., Recovers from procedure without complications.. 14:19:07 Risk of Mortality: 5.2 14:19:14 Risk of blood transfusion: 17.7 14:19:16 Risk of SUSHILA: 30.2 14:19:20 Stress Test: no; N/A ? 14:23:00 Patient Height : 74 inches 14:23:06 Patient Weight : 173 lbs 14:24:00 Lab Result : CK-MB 0.8 ng/ml 14:24:00 Lab Result : Creatinine 11.1 mg/dl 14:24:00 Lab Result : BUN 76 mg/dl 14:24:00 Lab Result : Hemoglobin 9.9 g/dl 14:24:00 Lab Result : Troponin l 5.276 ng/ml 14:24:08 Lab results completed and on chart. 14:28:19 Patient received from ICU to CCL 2 Alert and oriented. Tansferred to table in Supine position. 14:28:20 Signed procedure consent form obtained from patient. 14:28:21 Warm blankets applied, and jose juan hugger turned on for patient comfort. 14::22 Correct patient and procedure confirmed by team. 14:28:22 ECG and BP/O2 sat monitors applied to patient. 14:29:44 5) <15 or on dialysis Very severe, or end stage kidney failure. 14:29:47 Maximum allowable contrast dose (3.7 X eGFR X 0.75)17 ml. 14:41:56 Vital chart was started 14:42:03 0.9% NaCl 100 ml/hr I.V. was administered by Melita Asencio RN; used for procedure; Verbal order read back and verified. 14:42:21 Oxygen 8 l/min HFNC was administered by Melita Asencio RN; used for procedure; Verbal order read back and verified. 14:42:27 Lidocaine 2% 20ml vial added to field was administered by Chris Saenz MD; for local anesthetic; Verbal order read back and verified. 14:42:31 Baseline sample Acquired. 14:42:32 Heparin Flush Bag (1000units/500ml NS) 2 bags added to field was administered by Chris Saenz MD; used for procedure; Verbal order read back and verified. 14:42:39 Rhythm: sinus rhythm 14:42:40 Full Disclosure recording started 14:42:50 H&P Date Dictated: 07/13/2019 Within 30 days and on chart.. 14:42:51 Pre-procedure instructions explained to patient. 14:42:52 Pre-op teaching completed and patient verbalized understanding. 14:43:02 ACC Patient presents with Non-STEMI CCS Anginal Class 3--Marked limitation of physical activity, angina occurs with ordinary activity.. 14:43:23 Family in waiting room. 14:43:26 Patient NPO since Midnight. 14:43:27 Is the patient allergic to Iodine/contrast media? No. 14:43:29 Is patient on blood thinner?No 14:43:32 ACC The patient was administered the following blood thiners within the last 24 hours: None 14:43:33 Patient diabetic? Yes. 14:43:34 If diabetic: On Metformin? No 14:43:37 Previous problem with sedation/anesthesia? No ? 14:43:38 Snore? Yes 14:43:39 Sleep apnea? Yes 14:43:40 Deviated septum? No 14:43:40 Opens mouth fully? Yes 14:43:41 Sticks out tongue? Yes 14:43:43 Airway obstruction? No ? 14:43:44 Dentures? No ? 14:43:46 Pre procedure: right dorsailis pedis pulse 1+ Palpable, but thready & weak; easily obliterated 14:43:56 RESERVE LEFT ARM 14:44:00 Patient pain scale 0/10 ?. 14:44:08 IV patent on arrival in right IJ with 0.9% NaCl at O. 14:44:14 Right groin area was prepped with chlora-prep and draped in sterile fashion 14:44:15 Alarms reviewed by R. N. 14:44:16 Sharps counted by scrub and verified by R.N. 14:44:20 Use device set Femoral Dx 14:44:22 ACIST Manifold (23568) opened to sterile field. 14:44:23 ACIST Hand Control (94827) opened to sterile field. 14:44:24 ACIST Syringe (58693) opened to sterile field. 14:44:24 Bag Decanter (2002S) opened to sterile field. 14:44:24 Medline Cath Pack ([id number]) opened to sterile field. 14:44:26 Tegaderm 4 x 4 (1626W) opened to sterile field. 14:44:28 DIAGNOSTIC Multipack 5Fr catheter set (ER3131) opened to sterile field. 14:44:29 SHEATH 5FR Julian (BOT670) opened to sterile field. 14:44:30 CINDYALD Guide Wire (183-024) opened to sterile field. 14:44:46 --------ALL STOP TIME OUT------ 14:44:47 Final Timeout: patient, procedure, and site verified with staff and physician. All members of the team are in agreement. 14:44:48 Right groin site verified by team. 14:44:51 Fire Safety Assessment: A--An alcohol-based skin anteseptic being used preoperatively., C--Open oxygen or nitrous oxide is being used., D--An ESU, laser, or fiber-optic light is being used. 14:44:53 Physical assessment completed. ASA score P 2 - A patient with mild systemic disease as per Chris Saenz MD. 14:44:58 Sedation plan: IV Moderate Sedation Medication:Versed, Fentanyl 14:46:21 Pt arrived to CL #2 from ICU bed #1 complaining of neck pain and unable to open eyes. Pt states it feels like a "pinched nerve in my neck" and "the lights hurt my eyes". Pt currently on 8L HFNC and SpO2 100%, Amio infusing at 0.5mcg/min and Cardizem stopped per Dr. Escalona. LUIZ EtCO2 d/t pt need for HFNC. Oriented x 4 and responds to all questions appropriatley. informed of neck pain and light sensitivity. No orders given at this time. All other VSS. Will continue to monitor. 14:47:11 Versed 2 mg I.V. was administered by Melita Asencio RN; for sedation; Verbal order read back and verified. 14:47:16 Fentanyl 50 mcg I.V. was administered by Melita Asencio RN; for sedation; Verbal order read back and verified. 14:50:46 Procedure started. 14:50:49 Local anesthetic to right femoral artery with Lidocaine 2% by Chris Saenz MD.INITIAL ACCESS ONLY 14:51:07 Zero performed for pressure channel P1 14:51:20 A 5 Fr sheath was inserted into the Right Femoral artery 14:51:25 A MULTIPACK JL 4.0 5Fr catheter was advanced over the wire and used for Procedure. 14:52:09 LCA angiography performed. 14:52:11 ACCDominant side:Left 14:53:01 Catheter removed. 14:53:06 A MULTIPACK 3DRC 5Fr catheter was advanced over the wire and used for Procedure. 14:53:21 Zero performed for pressure channel P1 14:53:25 Zero performed for pressure channel P1 14:53:47 RCA angiography performed. 14:53:58 Catheter removed. 14:54:03 A MULTIPACK Pigtail 5 Fr catheter was advanced over the wire and used for Procedure. 14:54:06 Zero performed for pressure channel P1 14:54:09 Zero performed for pressure channel P1 14:54:44 LV gram done using BRIDGES 14:54:45 LV hemodynamics recorded. 14:54:48 Injector settings: Ml/sec: 10, Volume: 20, 14:55:26 EF : 40 % 14:55:29 Catheter removed. 14:55:30 EXOSEAL 5Fr (EX500) opened to sterile field. 14:55:40 Sheath removed intact; hemostasis achieved with Exoseal to the Right Femoral artery. 14:55:42 Procedure ended.(Physican Out) 14:56:21 Fluoroscopy time 01.10 minutes. 14:56:37 Fluoroscopy dose: 571 mGy 14:56:37 Flurop Dose total: 571 14:56:42 Dose Area Product 37491 mGy/cm. 14:56:46 Contrast amount:Isovue 300 61ml. 14:56:49 Sharps counted by scrub and verified by R.N. 14:56:50 Insertion/operative site no bleeding no hematoma. 14:56:52 Post-op/insertion site Right Femoral artery dressed using a 4 x 4 and Tegaderm. 14:56:54 Post Procedure Pulses reassessed and unchanged 14:56:56 Post-procedure physical assessment completed. ASA score P 2 - A patient with mild systemic disease as per Chris Saenz MD. 14:57:00 Post procedure rhythm: unchanged. 14:57:19 Estimated blood loss: 10 ml 14:57:21 Post procedure instruction explained to patient.Patient verbalizes understanding. 14:57:22 Patient needs reinforcement of post procedure teaching. 14:57:26 Procedure and supply charges have been captured, reviewed, submitted and are correct. 14:57:28 Procedure Complication : No complications 14:57:31 Vital chart was stopped 14:57:32 [facility] Findings: mild to moderate CAD (<70%) 14:57:33 Operative report dictated upon procedure completion. 14:57:34 See physician's report for complete and final results. 14:57:36 Report given to ICU. 14:57:40 Patient transfered to ICU with Bed. 14:59:27 Procedure ended. 14:59:27 Full Disclosure recording stopped 14:59:34 End room use (Document Last) Device Usage Item Name Manufacture Quantity Catalog Hospital Part Current Minimal L ot# / Number Charge Number Stock Stock Serial# Code ACIST Acist 1 94861 965591 732392 942112 5 Manifold Medical (95195) Systems Inc ACIST Hand Acist 1 48013 427421 173455 234448 5 Control Medical (33831) Systems Inc ACIST Acist 1 39535 655422 589990 289149 20 Syringe Medical (74523) Systems Inc Bag Microtek 1 2001S 465210 19258 387417 5 Decanter Medical Inc. (2001S) Medline Medline 1 [id number] 887167 21767 148483 5 Cath Pack ([id number]) Tegaderm 4 3M 1 1626W 885086 100822 375663 5 x 4 (1626W) DIAGNOSTIC Cardinal 1 RO9218 184276 15835 495982 30 Just Fab Health 5Fr catheter set (XQ3148) SHEATH 5FR Terumo 1 DAF304 547734 843793 045477 5 Julian (TDC821) EMERALD Cardinal 1 447-481 010713 091468 066853 5 Guide Wire Health (502-503) MULTIPACK Cardinal 1 381750 5 JL 4.0 5Fr Health catheter MULTIPACK Cardinal 1 159430 5 3DRC 5Fr Health catheter MULTIPACK Cardinal 1 584351 5 Pigtail 5 Health Fr catheter EXOSEAL 5Fr Cardinal 1 EX500 402594 008560 319434 10 (EX500) Health Signature Audit Mccurtain Stage Time Signature Unsigned Intra-Procedure 07/14/2019 Brent Simmons 2:58:53 PM RT(R) Intra-Procedure 07/14/2019 Melita Asencio 2:59:17 PM RN Intra-Procedure 07/14/2019 Chris Black 2:59:47 PM Josr SILVA Signatures Performing Physician : Signature : Chris Saenz MD Date : Time : Monitor : Brent Simmons RT Signature : Date : Time : Nurse : Melita Asencio RN Signature : Date : Time : [place] [address] [place] [address]
[~2019-07-11 17:17] MED LIST changes: +MOBIC7.5 MG PO; +ZITHROMAX250 MG PO
--- NOTE | 2019-07-11 17:33 | NUR ---
UA CANCELLED, PT DOES NOT MAKE URINE
--- NOTE | 2019-07-11 18:44 | NUR ---
PT IV INITIATED BY COREY VINSON. BLOOD DRAWN DURING IV START AND SENT WITH HUMAN PERFORMANCE PROFESSOR.
[2019-07-11 18:48] LABS: BASOPHILS 0.1 % (0-2); EOSINOPHILS 0 % (0-7); HEMATOCRIT 32.3 % (42.0-54.0); HEMOGLOBIN 10.6 g/dL (13.5-17.5); IMMATURE GRANULOCYTES 0.2 % (0-5); LYMPHOCYTES 3.5 % (15-50); MCH 32.5 pg (26.0-34.0); MCHC 32.8 g/dL (31.0-37.0); MCV 99.1 fL (80.0-100.0); MEAN PLATELET VOLUME 10.1 fL (7.4-10.4); MONOCYTES 7.7 % (2-11); NEUTROPHILS 88.5 % (40-80); PLATELET COUNT 148 10x3/uL (130-400); RBC 3.26 10x6/uL (4.20-6.10); RDW 14.2 % (11.5-14.5); WBC 8.3 10x3/uL (4.8-10.8)
[2019-07-11 19:18] LABS: ALBUMIN 3.2 g/dL (3.4-5.0); BILIRUBIN - TOTAL 0.4 mg/dL (0.2-1.3); CALCIUM 9.5 mg/dL (8.5-10.1); CARBON DIOXIDE 27.1 mmol/L (21.0-32.0); CREATININE - SERUM 9.9 mg/dL (0.6-1.3); PROTEIN - SERUM 6.9 g/dL (6.4-8.2)
[2019-07-11 19:19] LABS: ANION GAP 16.4 mmol/L (8-16)
[2019-07-11 19:20] LABS: POTASSIUM - SERUM 6.5 mmol/L (3.5-5.1); TROPONIN-I 0.36 ng/mL (0.000-0.060)
[2019-07-11 19:43] VITALS: BP 162/86
--- NOTE | 2019-07-11 21:37 | NUR ---
RECEIVED FROM ER, A&O, REJ-ANTIBONIC INFUSING, TEMP-104, WIPED DOWN WITH COOL WATER, PLACED SOME ICE UNDER ARMS, HISTORY AND MEDS COMPLETED, BED IS LOW, SRX2, CALL LIGHT IN REACH, WILL CONTINUE PLAN OF CARE
[2019-07-11] MEDS ORDERED: RENA-VITE TABL0.8 MG PO (21:42)
[2019-07-11] MEDS ORDERED: FERRIC CITRATE210 MG (21:46)
--- NOTE | 2019-07-11 22:29 | NUR ---
TEMP.103.1, GAVE TYLENOL PER ORDER, WILL CONTINUE TO MONITOR
[2019-07-11 23:40] VITALS: BP 163/87; BMI 27.4
--- NOTE | 2019-07-11 23:43 | NUR ---
PAGED PONY TRIMMER ABOUT TEMP-103.
--- NOTE | 2019-07-11 23:56 | NUR ---
SPOKE WITH DR. CALI IF FEVER DOESNT DECREASE IN 1 HR-GAVE 1 TIME DOSE OF MORTRIN 800MG
[2019-07-12] VITALS (11 sets, daily range): BP systolic 103–154; BP diastolic 49–856
--- NOTE | 2019-07-12 00:37 | NUR ---
TEMP 103.4, GAVE 800MG MOTRIN ORDERED
--- NOTE | 2019-07-12 03:02 | NUR ---
TEMP 99.4
[2019-07-12 07:26] LABS: BASOPHILS 0.1 % (0-2); EOSINOPHILS 0.1 % (0-7); HEMOGLOBIN 10.6 g/dL (13.5-17.5); IMMATURE GRANULOCYTES 0.7 % (0-5); LYMPHOCYTES 5.9 % (15-50); MCH 32.7 pg (26.0-34.0); MCHC 32.1 g/dL (31.0-37.0); MEAN PLATELET VOLUME 10.1 fL (7.4-10.4); MONOCYTES 11.3 % (2-11); NEUTROPHILS 81.9 % (40-80); PLATELET COUNT 119 10x3/uL (130-400); RBC 3.24 10x6/uL (4.20-6.10); RDW 14.4 % (11.5-14.5); WBC 9.7 10x3/uL (4.8-10.8)
[2019-07-12 07:28] LABS: MCV 101.9 fL (80.0-100.0)
--- NOTE | 2019-07-12 07:30 | NUR ---
PT RESTING RR EVEN AND UNLABORED. LABS RECIEVED THIS AM. K 7.8. JOSEPH ABBASI APN MADE AWARE. ORDERS RECIEVED. DENIES NEEDS OR PAIN AT THIS TIME. BED IN LOWEST POSITON. CALL LIGHT WITHIN REACH. WILL CONTINUE TO MONITOR.
[2019-07-12 07:56] LABS: BILIRUBIN - TOTAL 0.7 mg/dL (0.2-1.3); CALCIUM 10.3 mg/dL (8.5-10.1); CARBON DIOXIDE 25.2 mmol/L (21.0-32.0); CREATININE - SERUM 11.6 mg/dL (0.6-1.3); PROTEIN - SERUM 7.2 g/dL (6.4-8.2)
[2019-07-12 07:58] LABS: ANION GAP 20.6 mmol/L (8-16); POTASSIUM - SERUM 7.8 mmol/L (3.5-5.1)
[2019-07-12 10:45] LABS: VANCOMYCIN - RANDOM 12.9 ug/mL (10.0-20.0)
[2019-07-12 10:46] LABS: POTASSIUM - SERUM 5.8 mmol/L (3.5-5.1)
--- NOTE | 2019-07-12 15:00 | NUR ---
PT IN DIALYSIS, TOOTH CUTTER SPUR STATED PT HR WAS 150. DIALYSIS NURSE NOTIFIED. UPON ENTERING DIALYSIS ROOM, EKG WAS PERFORMED. AFIB WITH RVR NOTED. DIALYSIS NURSE CALLED ROSANA HOLLIS FROM ICU. JOSEPH VILLATORO WAS NOTIFIED. AMIODARONE ORDERED. PT BROUGHT BACK UP TO ROOM. ICU NURSE SUGGESTED TAKING PT TO UNIT TO STABALIZE. JOSEPH VILLATORO CALLED AND AGREED. PT TAKEN TO ROOM 2301. REPORT GIVEN TO ROSANA HOLLIS. MONITOR RETURNED TO TOOTH CUTTER SPUR. PT FAMILY NOTIFIED OF EVENT.
--- NOTE | 2019-07-12 15:15 | NUR ---
PT ARRIVED IN THE UNIT. HOOKED TO ICU MONITORS. AFIB 140BPM NOTED. BP STABLE. CALL LIGHT IN REACH. WILL CONT POC.
--- NOTE | 2019-07-12 16:22 | NUR ---
PT CONVERTED TO SINUS TACH RATE 105. VSS. WILL CONT POC.
--- NOTE | 2019-07-12 17:38 | NUR ---
SPOKE WITH DR GUADARRAMA. SEE ORDERS. SHE WILL REORDER HOMEMEDS IN THE AM.
[2019-07-12 18:14] LABS: ALBUMIN 2.7 g/dL (3.4-5.0); ANION GAP 17.7 mmol/L (8-16); BILIRUBIN - TOTAL 0.63 mg/dL (0.2-1.3); CALCIUM 9.7 mg/dL (8.5-10.1); CARBON DIOXIDE 25.6 mmol/L (21.0-32.0)
[2019-07-12 18:16] LABS: CREATININE - SERUM 7.8 mg/dL (0.6-1.3)
[2019-07-12 18:17] LABS: POTASSIUM - SERUM 4.3 mmol/L (3.5-5.1)
[2019-07-12 18:36] LABS: BASOPHILS 0 % (0-2); EOSINOPHILS 1.2 % (0-7); HEMATOCRIT 29.8 % (42.0-54.0); IMMATURE GRANULOCYTES 0.2 % (0-5); LYMPHOCYTES 10.9 % (15-50); MCHC 33.6 g/dL (31.0-37.0); MEAN PLATELET VOLUME 10.9 fL (7.4-10.4); NEUTROPHILS 74.7 % (40-80); PLATELET COUNT 108 10x3/uL (130-400); RBC 3.03 10x6/uL (4.20-6.10); RDW 14.4 % (11.5-14.5)
[2019-07-12 18:37] LABS: MCV 98.3 fL (80.0-100.0); WBC 5.9 10x3/uL (4.8-10.8)
--- NOTE | 2019-07-12 19:00 | NUR ---
SHIFT ASSESSMENT COMPLETED, PT CARE ASSUMED, MONITORS ON AND WORKING, HEART RATE SINUS TACH, PT AWAKE AND ALERT, LEFT ARM RESERVE, LT ARM FISTUAL WNL. SEE FLOW SHEET FOR FURTHER DETAILS. CALL LIGHT WITHIN REACH, WILL CONTINUE TO OBSERVE.
--- NOTE | 2019-07-12 20:00 | NUR ---
PRN DOSE OF TYLENOL GIVEN FOR TEMP OF 100.5, WILL REASSESS. CALL LIGHT WITHIN REACH, WILL CONTINUE TO OBSERVE.
--- NOTE | 2019-07-12 21:00 | NUR ---
FAMILY MEMBER CALLED. PT OKAY TO GIVE UPDATE, UPDATE PROVIDED, MONITORS ON AND WORKING, VITALS STABLE. PT AWAKE AND ALERT, TEMP DOWN FROM EARLIER AFTER PRN DOSE OF TYLENOL WAS GIVEN, PT LYING IN BED RESTING. CALL LIGHT WITHIN REACH, WILL CONTINUE TO OBSERVE.
--- NOTE | 2019-07-12 23:00 | NUR ---
NO CHANGES, PT LYING IN BED RESTING, MONITORS ON AND WORKING, VITALS STABLE, CALL LIGHT WITHIN REACH, SEE FLOW SHEET FOR FURTHER DETAILS. WILL CONTINUE TO OBSERVE.
[2019-07-13] VITALS (24 sets, daily range): BP systolic 111–170; BP diastolic 61–88; Ht 188 cm; Wt 80.6 kg
--- NOTE | 2019-07-13 01:00 | NUR ---
PT LYING IN BED RESTING, MONITORS ON AND WORKING, VITALS STABLE, PT REMAINS IN NORMAL SINUS. CALL LIGHT WITHIN REACH, WILL CONTINUE TO OBSERVE.
--- NOTE | 2019-07-13 03:00 | NUR ---
PT SITTING UP IN BED, MONITORS ON AND WORKING, VITALS STABLE, CALL LIGHT WITHIN REACH. SEE FLOW SHEET FOR FURTHER DETAILS. WILL CONTINUE TO OBSERVE.
--- NOTE | 2019-07-13 05:00 | NUR ---
PT LYING IN BED RESTING, MONITORS ON AND WORKING, VITALS STABLE. CALL LIGHT WITHIN REACH, WILL CONTINUE TO OBSERVE.
--- NOTE | 2019-07-13 07:30 | NUR ---
SPOKE WITH DR GUADARRAMA. OK TO TRANSFER TO THE FLOOR.
[2019-07-13 07:38] LABS: ANION GAP 18.7 mmol/L (8-16); CALCIUM 10.1 mg/dL (8.5-10.1); POTASSIUM - SERUM 4.7 mmol/L (3.5-5.1); VANCOMYCIN - RANDOM 13.4 ug/mL (10.0-20.0)
[2019-07-13 07:39] LABS: CREATININE - SERUM 10.1 mg/dL (0.6-1.3)
[2019-07-13 08:00] LABS: BASOPHILS 0 % (0-2); EOSINOPHILS 1.2 % (0-7); HEMATOCRIT 30.3 % (42.0-54.0); HEMOGLOBIN 10.1 g/dL (13.5-17.5); IMMATURE GRANULOCYTES 0.4 % (0-5); LYMPHOCYTES 5.6 % (15-50); MCH 32.7 pg (26.0-34.0); MCHC 33.3 g/dL (31.0-37.0); MCV 98.1 fL (80.0-100.0); MEAN PLATELET VOLUME 10.5 fL (7.4-10.4); MONOCYTES 14.3 % (2-11); NEUTROPHILS 78.5 % (40-80); RBC 3.09 10x6/uL (4.20-6.10); RDW 14.2 % (11.5-14.5); WBC 7.3 10x3/uL (4.8-10.8)
[2019-07-13 08:20] LABS: PLATELET COUNT 149 10x3/uL (130-400)
--- NOTE | 2019-07-13 08:53 | NUR ---
PT RESTING IN BED. FAMILY UPDATED. WILL CONTINUE TO MONITOR.
--- NOTE | 2019-07-13 09:31 | NUR ---
SPOKE WITH DR CALVO. CANCEL TRANSFER.
--- NOTE | 2019-07-13 14:26 | NUR ---
SOMA 350 MG PO GIVEN RE: NECK PAIN 03/28
--- NOTE | 2019-07-13 14:49 | MORECARE ---
CASE MANAGEMENT DISCHARGE SUMMARY PATIENT: DARLENE VILLATORO UNIT: [id number] ADM DATE: 07/11/19 AGE: 49 : 74 SEX: M ROOM/BED: D.2301 AUTHOR: CINDY ROMERO PHYSICIAN: REFERRING PHYSICIAN: MINDY GUADARRAMA DO DATE OF SERVICE: 07/13/19 Discharge Plan Patient Name: [facility]ARLENE [facility]ILLATORO [facility] [facility] 1970 Planned Disposition: Anticipated Discharge Date: Discharge Date: Expected LOS: Initial Reviewer: [email or web address] Initial Review Date: 07/11/2019 Generated: 07/13/19 3:48 pm Comments DCP- Discharge Planning Updated by [email or web address]: Becky Pagan on 07/13/19 1:[address] Patient requested CM to come back later for d/c planning assessment. Patient is hurting to bad currently to speak with CM. CM will continue to follow and assist as needed with discharge planning / needs. Patient Name: DARLENE VILLATORO Page [phone] at 1449 All edits/amendments must be made on the electronic document DICTATION DATE: 07/13/191447 [employer]IL[employer]: IGGY 07/13/191447 RPT#: [id number] DC DATE: STATUS: ADM IN [facility] [address] [place] [address] END OF REPORT
--- NOTE | 2019-07-13 17:00 | NUR ---
DR KRUSE HERE ASSESSING FEET.
--- NOTE | 2019-07-13 19:00 | NUR ---
DURING SHIFT REPORT PT STARTED COMPLAINING OF CHEST PAIN AND SOB, CARDIAC ENZYMES AND EKG ORDERED. MD AWARE, SHIFT ASSESSMENT COMPLETED, PT AWAKE AND ALERT, CALL LIGHT WITHIN REACH, SEE FLOW SHEET FOR FURTHER DETAILS. WILL CONTINUE TO OBSERVE.
--- NOTE | 2019-07-13 20:00 | NUR ---
CHEST PAIN CONTINUES DESPITE NITRO, MORPHINE GIVEN PER PRN ORDERS, MONITORS ON AND WORKING, PRN SOMA GIVEN.
[2019-07-13 20:34] LABS: CKMB 1.6 U/L (0.0-3.6); CREATINE KINASE 76 UL (21-232)
[2019-07-13 20:37] LABS: TROPONIN-I 5.537 ng/mL (0.000-0.060)
--- NOTE | 2019-07-13 21:00 | NUR ---
PT APPEARS TO GET RELIEF FROM PAIN WITH SOMA. PT AWAKE AND ALERT, MONITORS ON AND WORKING, WILL CONTINUE TO OBSERVE.
[2019-07-14] VITALS (21 sets, daily range): BP systolic 101–146; BP diastolic 58–86
--- NOTE | 2019-07-14 | NUR ---
PT WOKE UP COMPLAINING OF HEADACHE, NECK AND BACK PAIN THAT RADIATES DOWN TO CHEST AND LEFT ARM. PT STATES THAT PAIN MEDS DO NOT TOUCH THE PAIN BUT APPEARS TO GET RELEIF WITH SOMA, SOMA IS PRESCRIBED Q8H AND WORKS WELL FOR THE FIRST 4. THIS SAME SITUATION HAPPENED EARLIER AT THE BEGINNING OF THIS SHIFT WELL. HEART RATE BECOMES TACHY IN THE 130S, TEMP UP TO 100.6, WILL GIVE PRN MEDS PRESCRIBED, CALL LIGHT WITHIN REACH, WILL CONTINUE TO OBSERVE.
--- NOTE | 2019-07-14 01:10 | NUR ---
PT IN AFIB WITH A RATE OF 130S. 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
--- NOTE | 2019-07-14 01:25 | NUR ---
REC'D CALL BACK FROM DR KIM, ORDERS TO START CARDIZEM AT 5MG/HR FOR HEART RATE, WILL CONTINUE TO OBSERVE.
--- NOTE | 2019-07-14 01:45 | NUR ---
CARDIZEM INFUSING AT THIS TIME, MONITORS ON AND WORKING, CALL LIGHT WITHIN REACH, WILL CONTINUE TO OBSERVE.
[2019-07-14 02:53] LABS: CKMB 0.8 U/L (0.0-3.6); CREATINE KINASE 63 UL (21-232)
[2019-07-14 02:54] LABS: TROPONIN-I 5.276 ng/mL (0.000-0.060)
--- NOTE | 2019-07-14 03:00 | NUR ---
NO CHANGES, SEE FLOW SHEET FOR FURTHER DETAILS, MONITORS ON AND WORKING, CALL LIGHT WITHIN REACH, WILL CONTINUE TO OBSERVE.
[2019-07-14 04:49] LABS: HEMATOCRIT 28.3 % (42.0-54.0); HEMOGLOBIN 9.9 g/dL (13.5-17.5); MEAN PLATELET VOLUME 10.9 fL (7.4-10.4); RDW 14.2 % (11.5-14.5); WBC 7.2 10x3/uL (4.8-10.8)
[2019-07-14 04:54] LABS: CALCIUM 9.9 mg/dL (8.5-10.1); CARBON DIOXIDE 24.5 mmol/L (21.0-32.0); CREATININE - SERUM 11.1 mg/dL (0.6-1.3); POTASSIUM - SERUM 4.5 mmol/L (3.5-5.1); VANCOMYCIN - RANDOM 27.6 ug/mL (10.0-20.0)
[2019-07-14 04:58] LABS: MCV 94.3 fL (80.0-100.0); PLATELET COUNT 115 10x3/uL (130-400)
--- NOTE | 2019-07-14 05:00 | NUR ---
PT UP TP BEDSIDE COMMODE, CALL LIGHT WITHIN REACH, WILL CONTINUE TO OBSERVE.
[2019-07-14 05:19] LABS: PLATELET ESTIMATE DECREASED
[2019-07-14 05:22] LABS: EOSINOPHILS 2 % (0-7); LYMPHOCYTES 18 % (15-50); MONOCYTES 3 % (2-11); NEUTROPHILS 68 % (40-80)
--- NOTE | 2019-07-14 06:01 | NUR ---
PT REQUESTED UP TO BEDSIDE COMMODE, PT WANTED EVERYTHING UNHOOKED, PT BECAME SLIGHTLY AGITATED AND STATED THAT ALL HE WANTED TO BE UNHOOKED FROM EVERYTHING AT THIS TIME, PT IS AWAKE AND ALERT, STEADY GAIT. PT IS UP TO BEDSIDE COMMODE WITH CALL LIGHT AT SIDE. WILL CONTINUE TO OBSERVE.
--- NOTE | 2019-07-14 08:49 | CN ---
PATIENT NAME:DARLENE VILLATORO MEDICAL RECORD: [id number] : 74 LOCATION:[facility].2301 ADMIT DATE: 07/11/19 ACCOUNT: [id number] CONSULTING PHYSICIAN: JAYDEN CUELLAR MD REFERRING PHYSICIAN: MINDY GUADARRAMA DO DATE OF CONSULTATION: 07/13/2019 HISTORY OF PRESENT ILLNESS: A 49-year-old gentleman well known to our service has a history of coronary artery disease, status post intervention to LAD, a history of hypertension as well as chronic renal insufficiency has been maintained fairly well on meds and dialysis until Saturday, onset of chills, rigors, was seen in [place] and was found to be hyperkalemic. Reports marked constitutional symptomatology, some cough fairly classic pleuritic type chest pain. Subsequently, went into atrial fibrillation with RVR, was converted to normal sinus rhythm on Cordarone drip. We are asked to see him concerning his cardiovascular status. PAST MEDICAL HISTORY: Includes: 1. History of hypertension. 2. Hyperlipidemia. 3. Coronary artery disease. 4. Chronic renal insufficiency on dialysis. ALLERGIES: LISINOPRIL AND BUMEX. SOCIAL HISTORY: He is a nonsmoker and nondrinker. Easily takes care of all his ADLs up until prior present illness. Does attempt to walk on a similar regular basis. REVIEW OF SYSTEMS: The patient reports easy bruising but reports no swollen glands. The patient reports no fever, no night sweats, no significant weight gain, no significant weight loss. No significant exercise tolerance. The patient reports no dry eyes, no irritation, no vision change. Patient reports no difficulty hearing and no ear pain. Patient reports no frequent nose bleeds or nose and sinus problems. Patient reports on arm pain on exertion. No shortness of breath while lying down. No history of heart murmur. Patient reports no cough, no wheezing or coughing up blood. Patient reports no abdominal pain, no vomiting. Normal appetite. No diarrhea and not vomiting blood. No nausea and no constipation. Patient reports no incontinence. No difficulty urinating. No hematuria. No increased frequency. Patient reports no muscle aches. No weakness, no arthralgias, no back pain. No swelling of the extremities. Patient reports no abnormal mole, no jaundice, no rashes. Reports no loss of consciousness. No weakness and no numbness. No seizures, dizziness, or headaches. The patient reports no depression, no sleep disturbance, feeling safe in a relationship and no alcohol abuse. Patient reports on fatigue. Reports no runny nose or sinus pressure. No itching, no hives, and no frequent sneezing. PHYSICAL EXAMINATION: GENERAL: Appears somewhat acutely ill. VITAL SIGNS: Pulse currently 86 and regular, blood pressure 168/80. HEENT: Normocephalic, atraumatic. NECK: No bruits noted. HEART: Regular, II/ systolic ejection murmur. LUNGS: Fair air excursion, somewhat limited due to unable to take deep breath. CONSULT REPORT [id number] DARLENE VILLATORO ABDOMEN: Soft, nontender. EXTREMITIES: Pulses 2+. There is no edema. DIAGNOSTIC DATA: ECG shows a normal sinus rhythm, LVH. IMPRESSION: Atrial fibrillation, suspect increased current sepsis, increased catacholmine drive, etc. Continue on amiodarone. We will add colchicine for pleuritic symptomology, check echocardiographic study. Further recommendations based on the above. TRANSINT:[id number] Voice Confirmation ID: [id number] DOCUMENT ID: [id number] JAYDEN CUELLAR MD at 0849 CC: [id number] DICTATION DATE: 07/13/19850 OBGYN NURSE: 07/13/19 0932 ADM IN [facility] [facility] [address] [place] [address]
[2019-07-14 09:38] LABS: ALT (SGPT) 19 U/L (10-68); CHOL - HDL RATIO 14.2 ratio (2.3-4.9); CHOLESTEROL, TOTAL 142 mg/dL (0-200); HDL CHOLESTEROL 10 mg/dL (32-96); TRIGLYCERIDE 523 mg/dL (30-200)
--- NOTE | 2019-07-14 11:20 | MORECARE ---
CASE MANAGEMENT DISCHARGE SUMMARY PATIENT: DARLENE VILLATORO UNIT: [id number] ADM DATE: 07/11/19 AGE: 49 : 74 SEX: M ROOM/BED: D.2301 AUTHOR: CINDY ROMERO PHYSICIAN: REFERRING PHYSICIAN: MINDY GUADARRAMA DO DATE OF SERVICE: 07/14/19 Discharge Plan Patient Name: DARLENE VILLATORO Facility: [facility]:[place] : 1970 Planned Disposition: Anticipated Discharge Date: Discharge Date: Expected LOS: Initial Reviewer: [email or web address] Initial Review Date: 07/11/2019 Generated: 07/14/19 12:20 pm Comments DCP- Discharge Planning Updated by [email or web address]: Becky Pagan on 07/14/19 10:[address] CM attempted to see patient for discharge planning. Patient currently in severe pain and requested CM to come back later. Patient to go to labor law professor later today. CM will try back later. CM will continue to follow and assist as needed with discharge planning / needs. DCP- Discharge Planning Updated by [email or web address]: Becky Pagan on 07/13/19 1:[address] Patient requested CM to come back later for d/c planning assessment. Patient is hurting to bad currently to speak with CM. CM will continue to follow and assist as needed with discharge planning / needs. Last DP export: 07/13/19 1:49 Patient Name: DARLENE VILLATORO Page [id number] at 1120 All edits/amendments must be made on the electronic document DICTATION DATE: 07/14/19 1120 KAIAWHINA KOHANGA REO: IGGY 07/14/19 1120 RPT#: [id number] DC DATE: STATUS: ADM IN [facility] [address] [place] [address] END OF REPORT
--- NOTE | 2019-07-14 14:24 | NUR ---
TO CROCODILE FARMER.
--- NOTE | 2019-07-14 15:14 | NUR ---
DR CUELLAR HERE LOOKING FOR FAMILY.
--- NOTE | 2019-07-14 15:20 | NUR ---
BACK IN ROOM. CATH CLEAR. RIGHT GROIN CDI. PEDAL PULSE 2 PLUS.
--- NOTE | 2019-07-14 18:27 | NUR ---
TEMP 103. DR FARLEY CALLED. TYLENOL ORDERED. PT IS HARD STICK SO CANT GET BLOOD CULTURES. WILL GET THEM WITH DIALYSIS.
--- NOTE | 2019-07-14 19:00 | NUR ---
REPORT RECEIEVED. PT RESTING IN BED, PT ON 10L VIA HIGH FLOW NC, RT EJ INFUSING, SEE FLOWSHEET. ASSESSMENT COMPLETED, SEE FLOWSHEET. NO ACUTE DISTRESS NOTED AT THIS TIME. WILL CONTINUE TO MONITOR.
--- NOTE | 2019-07-14 21:00 | NUR ---
PT RESTING QUIETLY, DISORIENTED TO PLACE, REORIENTED NEEDED.
--- NOTE | 2019-07-14 22:00 | NUR ---
PT REPORTS ACHING PAIN IN CHEST, 5/10, INTERMITTENT, NOT RADIATING. PAGED DR KIM, AWAITING CALL BACK.
--- NOTE | 2019-07-14 22:30 | NUR ---
PAIN MEDICATION GIVEN PER ORDER, PT NO LONGER REPORTS PAIN. WILL CONTINUE TO MONITOR.
--- NOTE | 2019-07-14 23:00 | NUR ---
PT RESTIMG IN BED, NO ACUTE DISTRESS NOTED. WILL CONTINUE TO MONITOR.
[2019-07-15] VITALS (24 sets, daily range): BP systolic 100–149; BP diastolic 54–85
--- NOTE | 2019-07-15 01:00 | NUR ---
PT C/O CHEST PAIN, PAIN MEDICATION GIVEN ORDERED. TEMP LOWERED TO 98.7. WILL CONTINUE TO MONITOR.
--- NOTE | 2019-07-15 03:00 | NUR ---
PT RESTING IN BED, C/O FINGERS "TINGLING" ON LEFT HAND. CAP REFILL 3> SECONDS, SENSATION NORMAL, FULL ROM, RADIAL PULSES PALPABLE. WILL CONTINUE TO MONITOR.
[2019-07-15 04:18] LABS: BASOPHILS 0.1 % (0-2); EOSINOPHILS 1.1 % (0-7); HEMOGLOBIN 8.7 g/dL (13.5-17.5); IMMATURE GRANULOCYTES 0.5 % (0-5); LYMPHOCYTES 11.4 % (15-50); MCH 33.5 pg (26.0-34.0); MCHC 36.3 g/dL (31.0-37.0); MEAN PLATELET VOLUME 12.4 fL (7.4-10.4); MONOCYTES 16.1 % (2-11); NEUTROPHILS 70.8 % (40-80); RDW 14.4 % (11.5-14.5)
[2019-07-15 04:21] LABS: MCV 92.3 fL (80.0-100.0); PLATELET COUNT 143 10x3/uL (130-400)
[2019-07-15 04:24] LABS: CALCIUM 9.8 mg/dL (8.5-10.1)
[2019-07-15 04:48] LABS: CARBON DIOXIDE 23.9 mmol/L (21.0-32.0); CREATININE - SERUM 12.6 mg/dL (0.6-1.3); PHOSPHOROUS 8.9 mg/dL (2.5-4.9); VANCOMYCIN - RANDOM 21.3 ug/mL (10.0-20.0)
[2019-07-15 04:53] LABS: ANION GAP 23.7 mmol/L (8-16); POTASSIUM - SERUM 5.6 mmol/L (3.5-5.1)
--- NOTE | 2019-07-15 05:00 | NUR ---
PT RESTING IN BED, NO CHANGES IN PREVIOUS CONDITION.
--- NOTE | 2019-07-15 07:00 | NUR ---
PT REPORT RECEIVED FROM AUTOMOBILE SERVICE ADVISOR NURSE. SHIFT ASSESSMENT COMPLETED. NO VISIBLE SIGNS OF DISTRESS NOTED. WILL CONTINUE TO MONITOR
--- NOTE | 2019-07-15 08:45 | NUR ---
PT OFFERED MEAL TRAY. PT DECLINED MEAL TRAY
--- NOTE | 2019-07-15 09:00 | NUR ---
PT COMPLAINING OF PAIN HOWEVER WHEN OFFERED A PAIN PILL HE REFUSED. PT IS RESTING IN BED CURRENTLY. VSS. WILL CONTINUE TO MONITOR
--- NOTE | 2019-07-15 09:23 | NUR ---
NUTRITION F/U PT S/P HOSPICE LIAISON, RENAL DIET RESUMED. SLEEPING THRU BREAKFAST. WILL CONTINUE TO PROVIDE DIET, MONITOR PT PROGRESS. RD FOLLOWING
--- NOTE | 2019-07-15 11:00 | NUR ---
PT RESTING IN BED. REASSESSMENT COMPLETED AT THIS TIME. NO VISIBLE SIGNS OF DISTRESS NOTED. WILL CONTINUE TO MONITOR
--- NOTE | 2019-07-15 13:00 | NUR ---
PT RESTING IN BED. DIALYSIS NURSE AT BEDSIDE. PREPARING TO START DIALYSIS
--- NOTE | 2019-07-15 15:20 | NUR ---
DR CUELLAR PAGED WITH NO ANSWER DR PALOMO O/C, PAGED.
--- NOTE | 2019-07-15 15:40 | NUR ---
DR PALOMO CALLED BACK NEW ORDERS RECEIVED.
--- NOTE | 2019-07-15 16:06 | MORECARE ---
CASE MANAGEMENT DISCHARGE SUMMARY PATIENT: DARLENE VILLATORO UNIT: [id number] ADM DATE: 07/11/19 AGE: 49 : 74 SEX: M ROOM/BED: D.2301 AUTHOR: CINDY ROMERO PHYSICIAN: REFERRING PHYSICIAN: MINDY GUADARRAMA DO DATE OF SERVICE: 07/15/19 Discharge Plan Patient Name: DARLENE VILLATORO Facility: [facility]:[place] : 1970 Planned Disposition: Home Anticipated Discharge Date: Discharge Date: Expected LOS: Initial Reviewer: [email or web address] Initial Review Date: 07/11/2019 Generated: 07/15/19 5:06 pm DCP- Discharge Planning Updated by [email or web address]: Becky Pagan on 07/14/19 10:[address] CM attempted to see patient for discharge planning. Patient currently in severe pain and requested CM to come back later. Patient to go to company laborer later today. CM will try back later. CM will continue to follow and assist as needed with discharge planning / needs. DCP- Discharge Planning Updated by [email or web address]: Becky Pagan on 07/13/19 1:[address] Patient requested CM to come back later for d/c planning assessment. Patient is hurting to bad currently to speak with CM. CM will continue to follow and assist as needed with discharge planning / needs. Last DP export: 07/14/19 10:20 Patient Name: DARLENE VILLATORO Page [phone] at 1606 All edits/amendments must be made on the electronic document DICTATION DATE: 07/15/19 1606 MOTOR VEHICLE ESCORT DRIVER: IGGY 07/15/19 1606 RPT#: [id number] DC DATE: STATUS: ADM IN [facility] [address] [place] [address] END OF REPORT
--- NOTE | 2019-07-15 16:17 | MORECARE ---
CASE MANAGEMENT DISCHARGE SUMMARY PATIENT: DARLENE VILLATORO UNIT: [id number] ADM DATE: 07/11/19 AGE: 49 : 74 SEX: M ROOM/BED: D.2301 AUTHOR: HEATHER,DOC PHYSICIAN: REFERRING PHYSICIAN: MINDY GUADARRAMA DO DATE OF SERVICE: 07/15/19 Discharge Plan Patient Name: DARLENE VILLATORO Facility: [facility]:[place] : 1970 Planned Disposition: Home Anticipated Discharge Date: Discharge Date: Expected LOS: Initial Reviewer: [email or web address] Initial Review Date: 07/11/2019 Generated: 07/15/19 5:16 pm Comments DCP- Discharge Planning Updated by [email or web address]: Becky Pagan on 07/15/19 3:[address] Patient Name: DARLENE VILLATORO Admission Status: ER Accout number: [id number] Admission Date: 07-11-2019 : 1970 Admission Diagnosis: Attending: ROBERT Current LOS: 4 Anticipated DC Date: Planned Disposition: Home Primary Insurance: MEDICARE A & B Discharge Planning Comments: CM met with patient at bedside after explaining CM role and obtaining verbal consent. Patient lives at home with his parents where he is independent with his care and plans to return there upon discharge. Patient feels this would be a safe discharge. CM discussed availability / needs of home health and medical equipment. Patient denies any discharge needs at this time. Patient states he will have his family drive him home upon discharge. Patient has dialysis in [place] MWF @ 1030 CM will continue to follow and assist as needed with discharge planning / needs. Labor Supervisor: Becky Pagan DCP- Discharge Planning Updated by [email or web address]: Becky Pagan on 07/14/19 10:[address] CM attempted to see patient for discharge planning. Patient currently in severe pain and requested CM to come back later. Patient to go to dental laboratory technology teacher later today. CM will try back later. CM will continue to follow and assist as needed with discharge planning / needs. DCP- Discharge Planning Updated by [email or web address]: Becky Pagan on 07/13/19 1:[address] Patient requested CM to come back later for d/c planning assessment. Patient is hurting to bad currently to speak with CM. CM will continue to follow and assist as needed with discharge planning / needs. DCPIA - Discharge Planning Initial Assessment Updated by [email or web address]: Becky Pagan on 07/15/19 4:08 pm * Is the patient Alert and Oriented? Yes * How many steps to enter\exit or inside your home? * PCP UMESH * Pharmacy [facility] * Preadmission Environment Home with Family * ADLs Independent * Other Equipment BLOOD PRESSURE CUFF * List name and contact numbers for known caregivers / representatives who currently or will assist patient after discharge: DARIUS VILLATORO - FATHER- [phone] * Verbal permission to speak to the caregivers and representatives has been obtained from the patient. Yes * Community resources currently utilized None * Additional services required to return to the preadmission environment? No * Can the patient safely return to the preadmission environment? Yes * Has this patient been hospitalized within the prior 30 days at any hospital? No Last DP export: 07/15/19 3:06 Patient Name: DARLENE VILLATORO Page [id number] at 1617 All edits/amendments must be made on the electronic document DICTATION DATE: 07/15/191615 GOVERNMENT RELATIONS DIRECTOR: IGGY 07/15/191615 RPT#: [id number] MS DATE: STATUS: ADM IN [facility] [address] [place] [address] END OF REPORT
--- NOTE | 2019-07-15 16:45 | NUR ---
PT TRANSPORTED TO MRI WITH MRI NURSE AND CHARGE NURSE LESLIE. PT TOLERATED TRANSITION TO MRI BED WELL. WILL CONTINUE TO MONITOR
--- NOTE | 2019-07-15 17:30 | NUR ---
PT ARRIVED BACK TO ICU FROM MRI. PT TRANSFERRED TO ICU BED. TOLERATED WELL. NO VISIBLE SIGNS OF DISTRESS NOTED. WILL CONTINUE TO MONITOR
--- NOTE | 2019-07-15 19:00 | NUR ---
REPORT RECEIVED, PT RESTING IN BED, AAOX4. PT C/O CHEST PAIN AT THIS TIME. ASSESSMENT COMPLETED, SEE FLOWSHEET. RIGHT EJ IV INFUSING, SEE IV FLOWSHEET. PT ON 9L O2 VIA NC, DRESSING CDI ON RT GROIN INCISION SITE. WILL CONTINUE TO MONITOR.
--- NOTE | 2019-07-15 21:00 | NUR ---
ASSISTED PT TO SIT UP AT SIDE OF BED, PT EXPRESSED RELIEF OF MIDDLE BACK PAIN. WILL CONTINUE TO MONITOR.
--- NOTE | 2019-07-15 23:00 | NUR ---
PT RESTING IN BED, NO ACUTE DISTRESS NOTED AT THIS TIME.
[2019-07-16] VITALS (23 sets, daily range): BP systolic 88–124; BP diastolic 51–77
--- NOTE | 2019-07-16 01:00 | NUR ---
PT RESTING IN BED, NO ACUTE DISTRESS NOTED.
--- NOTE | 2019-07-16 03:00 | NUR ---
PT AWAKE AND ALERT, RESTING IN BED. NO ACUTE DISTRESS NOTED. WILL CONTINUE TO MONITOR.
[2019-07-16 03:45] LABS: BASOPHILS 0.1 % (0-2); EOSINOPHILS 0.5 % (0-7); HEMATOCRIT 25.4 % (42.0-54.0); LYMPHOCYTES 11.1 % (15-50); MCH 32.3 pg (26.0-34.0); MCHC 35.4 g/dL (31.0-37.0); MEAN PLATELET VOLUME 11.5 fL (7.4-10.4); MONOCYTES 13.1 % (2-11); NEUTROPHILS 74.2 % (40-80); PLATELET COUNT 150 10x3/uL (130-400); RBC 2.79 10x6/uL (4.20-6.10); RDW 14.8 % (11.5-14.5); WBC 7.8 10x3/uL (4.8-10.8)
[2019-07-16 04:06] LABS: ANION GAP 25.8 mmol/L (8-16); CALCIUM 10.7 mg/dL (8.5-10.1); CARBON DIOXIDE 23.9 mmol/L (21.0-32.0); CREATININE - SERUM 10.6 mg/dL (0.6-1.3); POTASSIUM - SERUM 5.7 mmol/L (3.5-5.1); VANCOMYCIN - RANDOM 18.2 ug/mL (10.0-20.0)
--- NOTE | 2019-07-16 05:00 | NUR ---
PT RESTING IN BED, NO ACUTE DISTRESS NOTED. WILL CONTINUE TO MONITOR.
--- NOTE | 2019-07-16 07:00 | NUR ---
PT REPORT RECEIVED FROM TIRE SETTER NURSE. SHIFT ASSESSMENT COMPLETED. VSS. WILL CONTINUE TO MONITOR
--- NOTE | 2019-07-16 09:00 | NUR ---
PT RESTING IN BED. NO VISUAL SIGNS OF DISTRESS NOTED. WILL CONTINUE TO MONITOR.
--- NOTE | 2019-07-16 11:00 | NUR ---
PT RESTING IN BED. REASSESSMENT COMPLETED. VSS. NO VISIBLE SIGNS OF DISTRESS NOTED. WILL CONTINUE TO MONITOR
--- NOTE | 2019-07-16 12:00 | NUR ---
FAMILY AT BEDSIDE. UPDATE GIVEN. PT GIVEN FOOT MASSAGE WITH LOTION TO HELP PROMOTE CIRCULATION
--- NOTE | 2019-07-16 13:00 | NUR ---
PT RESTING IN BED. AROUSES EASILY. NO VISIBLE SIGNS OF DISTRESS NOTED. VSS. WILL CONTINUE TO MONITOR
--- NOTE | 2019-07-16 15:00 | NUR ---
PT UP AT BEDSIDE SITTING ON EDGE OF BED. REASSESSMENT COMPLETED. NO VISIBLE SIGNS OF DISTRESS NOTED. WILL CONTINUE TO MONITOR
--- NOTE | 2019-07-16 16:54 | NUR ---
PT RESTING IN BED. DENIES ANY NEEDS AT THIS TIME. NO ACUTE SIGNS OF DISTRESS NOTED. WILL CONTINUE TO MONITOR
[2019-07-16 18:26] LABS: ANION GAP 26.7 mmol/L (8-16); CALCIUM 10.3 mg/dL (8.5-10.1); CARBON DIOXIDE 22.6 mmol/L (21.0-32.0); CREATININE - SERUM 11.7 mg/dL (0.6-1.3)
[2019-07-16 18:28] LABS: POTASSIUM - SERUM 6.3 mmol/L (3.5-5.1)
--- NOTE | 2019-07-16 18:30 | NUR ---
LAB CALLED WITH CRITICAL LAB VALUE. RESULTS CALLED TO DR TOLEDO. ORDERS RECEIVED. WILL CONTINUE TO MONITOR
--- NOTE | 2019-07-16 19:00 | NUR ---
SHIFT ASSESSMENT COMPLETED. PT CARE ASSUMED, MONITORS ON AND WORKING, VITALS STABLE, PT AWAKE AND ALERT, NO SIGNS/SYMPTOMS OF PAIN OR DISCOMFORT NOTED AT THIS TIME, CALL LIGHT WITHIN REACH SEE FLOW SHEET FOR FURTHER DETIALS. WILL CONTINUE TO OBSERVE.
--- NOTE | 2019-07-16 20:26 | NUR ---
PATIENT REQUESTING UP TO SIT ON BEDSIDE. PATIENT POSITIONED SELF WITH MINIMAL ASSIST TO BEDSIDE, TOLERATING WELL.
--- NOTE | 2019-07-16 21:00 | NUR ---
PT SITTING UP ON SIDE OF THE BED, PT COMPLAINING OF BACK PAIN AND SOB, PROPPED PILLOWS UP AND GAVE PRN MEDS PER PTS REQUEST. MONITORS ON AND WORKING, VITALS STABLE, CALL LIGHT WITHIN REACH, WILL CONTINUE TO OBSERVE.
--- NOTE | 2019-07-16 22:00 | NUR ---
PT REQUESTING TO LAY BACK DOWN IN BED, PT REQUIRES MINIMAL ASSIST GETTING SITUATED IN BED, PILLOWS AND BLANKETS REPOSITIONED FOR PTS COMFORT, PT STATES STILL HAVING SOME MILD BACK PAIN BUT MUCH BETTER THAN EARLIER. PT AWAKE AND ALERT, MONITORS ON AND WORKING, VITALS STABLE, CALL LIGHT WITHIN REACH. WILL CONTINUE TO OBSERVE.
--- NOTE | 2019-07-16 23:00 | NUR ---
PT LYING IN BED RESTING, MONITORS ON AND WORKING, VITALS STABLE, CALL LIGHT WITHIN REACH SEE FLOW SHEET FOR FURTHER DETAILS. WILL CONTINUE TO OBSERVE.
[2019-07-17] VITALS: BP 105/50
[2019-07-17 01:00] VITALS: BP 93/50
--- NOTE | 2019-07-17 01:00 | NUR ---
PT LYING IN BED RESTING, MONITORS ON AND WORKING, NO SIGNS/SYMPTOMS OF PAIN OR DISCOMFORT NOTED AT THIS TIME, CALL LIGHT WITHIN REACH, WILL CONTINUE TO OBSERVE.
--- NOTE | 2019-07-17 01:55 | NUR ---
PT LYING IN BED, RHYTHM CHANGE NOTED, CARDIZEM TURNED OFF AND CODE BLUE CALLED. SEE CODE BLUE SHEET FOR FURTHER DETAILS.
--- NOTE | 2019-07-17 02:00 | NUR ---
CODE IN PROGRESS SEE CODE BLUE SHEET FOR FURTHER DETAILS.
[2019-07-17 02:34] LABS: BASOPHILS 0.2 % (0-2); EOSINOPHILS 0.8 % (0-7); HEMOGLOBIN 9.3 g/dL (13.5-17.5); IMMATURE GRANULOCYTES 1.6 % (0-5); MCH 31.7 pg (26.0-34.0); MCHC 35.8 g/dL (31.0-37.0); MEAN PLATELET VOLUME 10.9 fL (7.4-10.4); MONOCYTES 9.5 % (2-11); NEUTROPHILS 71.9 % (40-80); RBC 2.93 10x6/uL (4.20-6.10); RDW 15.6 % (11.5-14.5)
[2019-07-17 02:36] LABS: WBC 16.1 10x3/uL (4.8-10.8)
[2019-07-17 02:37] LABS: MCV 88.7 fL (80.0-100.0); PLATELET COUNT 265 10x3/uL (130-400)
--- NOTE | 2019-07-17 02:58 | NUR ---
CALLED PTS EMERGENCY CONTACT, WHICH IS PTS FATHER, DID NOT GET A ANSWER AT THIS TIME. WAITING FOR CALL BACK.
[2019-07-17 03:00] LABS: CALC OSMOLALITY 290 mosm/kg (275-300); CALCIUM 11.7 mg/dL (8.5-10.1); CHLORIDE - SERUM 87 mmol/L (98-107); CREATINE KINASE 82 UL (21-232); CREATININE - SERUM 12.4 mg/dL (0.6-1.3); GLUCOSE 160 mg/dL (74-106); MAGNESIUM - SERUM 2.5 mg/dL (1.8-2.4); SODIUM 129 mmol/L (136-145); UREA NITROGEN 95 mg/dL (7-18); VANCOMYCIN - RANDOM 25.9 ug/mL (10.0-20.0); eGFR NON AFRICAN AMERICAN 5 mL/min (90-120)
[2019-07-17 03:01] LABS: CARBON DIOXIDE 15.5 mmol/L (21.0-32.0); TROPONIN-I 2.333 ng/mL (0.000-0.060)
[2019-07-17 03:02] LABS: PHOSPHOROUS 11.9 mg/dL (2.5-4.9); POTASSIUM - SERUM 7.1 mmol/L (3.5-5.1)
--- NOTE | 2019-07-17 03:49 | NUR ---
1 AMP D50 AND 10 UNITS OF REGULAR INSULIN GIVEN AT THIS TIME PER MDS ORDER. SEE CODE BLUE SHEET FOR FURTHER DETAILS.
--- NOTE | 2019-07-17 04:00 | NUR ---
PT REMAINS UNRESPONSIVE SINCE CODE BLUE BEGAN. [facility]CS OF 3.
--- NOTE | 2019-07-17 05:35 | NUR ---
DANI NOTIFIED, WAITING FOR CALL BACK.
--- NOTE | 2019-07-17 06:03 | NUR ---
SPOKE WITH KATELIN FORTE FROM [employer], REF NUMBER [id number].
--- NOTE | 2019-07-17 06:19 | NUR ---
[facility] CONTACTED PER FAMILY REQUEST
--- NOTE | 2019-07-17 09:17 | MORECARE ---
CASE MANAGEMENT DISCHARGE SUMMARY PATIENT: DARLENE VILLATORO UNIT: [id number] ADM DATE: 07/11/19 AGE: 49 : 74 SEX: M ROOM/BED: D.2301 AUTHOR: HEATHER,DOC PHYSICIAN: REFERRING PHYSICIAN: MINDY GUADARRAMA DO DATE OF SERVICE: 07/17/19 Discharge Plan Patient Name: DARLENE VILLATORO Facility: [facility]:[place] : 1970 Planned Disposition: Home Anticipated Discharge Date: Discharge Date: 07/17/2019 Expected LOS: Initial Reviewer: [email or web address] Initial Review Date: 07/11/2019 Generated: 07/17/19 10:17 am DCP- Discharge Planning Updated by [email or web address]: Becky Pagan on 07/15/19 3:[address] Patient Name: DARLENE VILLATORO Admission Status: ER Accout number: [id number] Admission Date: 07-11-2019 : 1970 Admission Diagnosis: Attending: ROBERT Current LOS: 4 Anticipated DC Date: Planned Disposition: Home Primary Insurance: MEDICARE A & B Discharge Planning Comments: CM met with patient at bedside after explaining CM role and obtaining verbal consent. Patient lives at home with his parents where he is independent with his care and plans to return there upon discharge. Patient feels this would be a safe discharge. CM discussed availability / needs of home health and medical equipment. Patient denies any discharge needs at this time. Patient states he will have his family drive him home upon discharge. Patient has dialysis in [place] MWF @ 1030 CM will continue to follow and assist as needed with discharge planning / needs. Pie Crust Mixer: Becky Pagan DCP- Discharge Planning Updated by [email or web address]: Becky Pagan on 07/14/19 10:[address] CM attempted to see patient for discharge planning. Patient currently in severe pain and requested CM to come back later. Patient to go to chemistry laboratory technician later today. CM will try back later. CM will continue to follow and assist as needed with discharge planning / needs. DCP- Discharge Planning Updated by [email or web address]: Becky Pagan on 07/13/19 1:[address] Patient requested CM to come back later for d/c planning assessment. Patient is hurting to bad currently to speak with CM. CM will continue to follow and assist as needed with discharge planning / needs. DCPIA - Discharge Planning Initial Assessment Updated by [email or web address]: Becky Pagan on 07/15/19 4:08 pm * Is the patient Alert and Oriented? Yes * How many steps to enter\exit or inside your home? * PCP UMESH * Pharmacy [facility] * Preadmission Environment Home with Family * ADLs Independent * Other Equipment BLOOD PRESSURE CUFF * List name and contact numbers for known caregivers / representatives who currently or will assist patient after discharge: DARIUS VILLATORO - FATHER- [phone] * Verbal permission to speak to the caregivers and representatives has been obtained from the patient. Yes * Community resources currently utilized None * Additional services required to return to the preadmission environment? No * Can the patient safely return to the preadmission environment? Yes * Has this patient been hospitalized within the prior 30 days at any hospital? No Last DP export: 07/15/19 3:17 Patient Name: DARLENE VILLATORO Page [phone] at 0917 All edits/amendments must be made on the electronic document DICTATION DATE: 07/17/19916 JEWELRY SORTER: IGGY 07/17/19916 RPT#: [id number] DC DATE:07/17/19 STATUS: DIS IN [facility] [address] [place] [address] END OF REPORT
--- NOTE | 2019-07-20 09:58 | EC ---
PATIENT:DARLENE VILLATORO DATE OF SERVICE: 07/11/19 SEX: M MEDICAL RECORD: [id number] DATE OF : [birth year] LOCATION:[facility] D230 AGE OF PATIENT: 49 ADMISSION DATE: 07/11/19 REFERRING PHYSICIAN: INTERPRETING PHYSICIAN: JAYDEN CUELLAR MD ECHOCARDIOGRAM REPORT ECHO CHARGES 5 ECHO LIMITED Date: 07/13/19 CLINICAL DIAGNOSIS: ATRIAL FIB/ ASSESS FOR CLOTS/LA SIZE ECHOCARDIOGRAPHIC MEASUREMENTS (adult normal given) AC root (d.<3.7cm) cm LV Septum d (<1.2 cm> cm Valve Excursion cm LV Septum (systole) cm Left Atria (s.<4.0cm> 4.2 cm LVPW d(<1.2cm) cm RV (d.<2.3cm) 5.4 cm LVPW (sytole) cm LV diastole(<5.6CM) 3.8 cm MV E-F(>70mm/sec) cm LV systole cm LVOT Diameter cm MV exc.(>10mm) cm Est.ejection fraction (50-75%) % DOPPLER: LVIT cm/sec A cm/sec E cm/sec LA cm/sec RVSP 50 mmHg LVOT cm/sec AOP1/2T m/s Asc. Ao cm/sec RVOT cm/sec RA cm/sec PA cm/sec AV Gradient Peak mmHg AV Mean mmHg AV Area cm MV Gradient Peak mmHg MV Mean mmHg MV Area cm COMMENTS: Heater Engineer Helper: Jorge Alberto TATE Hand Cementer: 3 Dr. Escalona TAPE# PACS Pericardial Effusion Y DATE OF SERVICE: 07/14/2019 Adequate 2D, color flow imaging, spectral Doppler, and M-Mode. LVH is present. LV internal dimensions are normal. Wall motion is normal. EF is greater than or equal to 55%. Aortic valve is tricuspid. No evidence of stenosis by Doppler interrogation. Left atrium dilated 4.2 cm. Mitral valve shows no prolapse. Mild MR. Right-sided chambers are grossly normal. Moderate TR. ECHOCARDIOGRAM REPORT [id number] DARLENE VILLATORO TRANSINT:[id number] Voice Confirmation ID: [id number] DOCUMENT ID: [id number] JAYDEN CUELLAR MD at 0958 CC: [id number] DICTATION DATE: 07/14/19 1345 STAFF RN: 07/14/19 1649 DIS IN 07/17/19 [place] [id number] [facility]
--- NOTE | 2019-07-20 09:58 | OP ---
PATIENT NAME: DARLENE VILLATORO MEDICAL RECORD: [id number] :[birth year] LOCATION:.[facility] D.2301 ADMISSION DATE:07/11/19 SURGEON: JAYDEN CUELLAR MD DATE OF OPERATION: 07/14/2019 PROCEDURES: Left heart catheterization, selective coronary angiography, right femoral artery approach. CATHETERS: A 5-Kazakh sheath, 5/4 left and right Chirag, 5/4 pig. The procedure was well tolerated. The patient was returned to the gore. Sheath removed. ExoSeal device was placed. FINDINGS: Left ventriculography in 30-degree BRIDGES view shows mild global hypo. Overall, function is minimally reduced at 40% to 45%. CORONARY ANATOMY: LEFT MAIN: Left main is free of disease. LAD: Area of previous stenting is widely patent. No progression of jena disease. CIRCUMFLEX: Free of disease. RIGHT CORONARY ARTERY: Free of disease. IMPRESSION: Elevated troponin secondary to underlying sepsis, demand ischemia, atrial fibrillation. No evidence of stent re-stenosis or progression of jena disease. Suspect LV function will recover normal. TRANSINT:[id number] Voice Confirmation ID: [id number] DOCUMENT ID: [id number] JAYDEN CUELLAR MD at 0958 CC: [id number] DICTATION DATE: 07/14/19 1505 BELL CLERK: 07/14/19 1808 DIS IN 07/17/19 [facility] [address] [place] [address]
== END 2019-07-17 07:13 | DRG 871 ==
LOC: D.ER 17:17 → D.M2 20:14 → D.ICU 20:14
PROVIDERS: Emergency Medicine; Family Medicine; Internal Medicine Cardiovascular Disease; Internal Medicine Nephrology; ADMIT Internal Medicine; ATTEND Internal Medicine
PROC: 0BH17EZ Insertion of Endotracheal Airway into Trachea, Via Natural or Artificial Opening (ICD-10-PCS; principal; 2019-07-17)
DX: A41.01 Sepsis due to Methicillin susceptible Staphylococcus aureus (principal); N18.6 End stage renal disease; R40.2214 Coma scale, best verbal response, none, 24 hours or more after hospital admission; R40.2314 Coma scale, best motor response, none, 24 hours or more after hospital admission; I12.0 Hypertensive chronic kidney disease with stage 5 chronic kidney disease or end stage renal disease; E87.2 Acidosis; E87.5 Hyperkalemia; E11.22 Type 2 diabetes mellitus with diabetic chronic kidney disease; I48.91 Unspecified atrial fibrillation; I46.9 Cardiac arrest, cause unspecified; E11.621 Type 2 diabetes mellitus with foot ulcer; L97.519 Non-pressure chronic ulcer of other part of right foot with unspecified severity; R00.1 Bradycardia, unspecified; Z66 Do not resuscitate; R40.2434 Glasgow coma scale score 3-8, 24 hours or more after hospital admission